=== PATIENT | male | born 1940 | race Caucasian/White ===

== ENCOUNTER 2018-11-09 18:36 | Inpatient (IN) | payer MEDICARE ==
[~2018-11-09] VITALS: Ht 165.1 cm; Wt 93.0 kg
[2018-11-09] MEDS ORDERED: IV NORMAL SALINE 1000ML BAG 1,000 ML IV ONE ×2 (18:45→19:45)
[2018-11-09 18:58] LABS: BASO % 0 % (0-3); EOS # 0.1 x10^3/uL (0.0-0.7); EOS % 1 % (0-3); HEMATOCRIT 46.9 % (39.0-53.0); HEMOGLOBIN 15.5 g/dL (13.0-17.5); LYMPH # 0.4 x10^3/uL (1.0-4.8); LYMPH % 4 % (24-48); MEAN CORPUSCULAR HEMOGLOBIN 31 pg (25-35); MEAN CORPUSCULAR HGB CONC 33 g/dL (31-37); MEAN CORPUSCULAR VOLUME 93 fL (79-100); MONO # 0.2 x10^3/uL (0.0-1.1); MONO % 2 % (0-9); NEUT # 10.5 x10^3uL (1.8-7.7); NEUT % 94 % (31-73); PLATELET COUNT 220 x10^3/uL (140-400); RED BLOOD COUNT 5.06 x10^6/uL (4.30-5.70); RED CELL DISTRIBUTION WIDTH 13.5 % (11.5-14.5); WHITE BLOOD COUNT 11.2 x10^3/uL (4.0-11.0)
[2018-11-09] MEDS ORDERED: CONTRAST GIVEN. MC PRN (19:00)
[2018-11-09] MEDS ORDERED: IOHEXOL 350 MG/ML 100 ML VIAL. IV ONE (19:00)
--- NOTE | 2018-11-09 19:06 | PHYS DOC ---
Past Medical History Past Medical History: Arthritis, COPD, Depression, Hypertension, Seizure, Stroke, UTI Additional Past Medical Histor: hyperlipidemia, bph, Past Surgical History: No Surgical History Alcohol Use: None Drug Use: None Adult General Chief Complaint Chief Complaint: ALTERED MENTAL STATUS [facility] HPI Patient is a 77 [facility] male [facility] patient with history of CVA with persistent left-sided deficits, seizure disorder who presents with mental status changes and fever [facility]. Patient also reported to be hypotensive per EMS on their arrival. Systolic blood pressures in the 90s. [Blood pressure symptoms improved to low 110s. Patient is somewhat somnolent and oriented to person but confused to time and place. No reports of chest pain, cough, abdominal pain. No reports of urinary frequency urgency or burning. History is limited due to the patient's mental status changes. Additional history per patient's spouse.[] Review of Systems Review of Systems ROS as per HPI All other systems were reviewed and found to be within normal limits, except as documented in this note. Current Medications Current Medications Current Medications Medications (Trade) Dose Ordered Sig/Darius Start Time Stop Time Status Last Admin Dose Admin Sodium Chloride 1,000 ml @ 1,000 mls/hr 1X ONCE 11/09/18 18:45 11/09/18 19:44 DC 11/09/18 19:09 1,000 MLS/HR Allergies Allergies Allergies Coded Allergies Type Severity Reaction Last Updated Verified No Known Drug Allergies 02/21/18 No Physical Exam Physical Exam Constitutional: Fatigued, generally weak appearing slow to respond to questions. [] HENT: Normocephalic, atraumatic, bilateral external ears normal, oropharynx moist, nose normal. [] Eyes: PERRLA, EOMI, conjunctiva normal, no discharge. [] Neck: Normal range of motion, no tenderness. [] Cardiovascular:Heart rate regular rhythm, no murmur [] Lungs & Thorax: Bilateral breath sounds clear to auscultation [] Abdomen: Bowel sounds normal, soft, nontender. [] Skin: Warm, dry, no erythema. [] Back: No tenderness. [] Extremities: No tenderness, no edema. [] Neurologic: Alert and oriented X 1, l upper and left lower extremity weakness with decreased sensation[] Current Patient Data Vital Signs Vital Signs Date Time Temp Pulse Resp B/P (MAP) Pulse Ox O2 Delivery O2 Flow Rate FiO2 11/09/18 18:36 101.8 110 20 113/64 (80) 91 Room Air 101.8 Lab Values Laboratory Tests Test 11/09/18 18:42 11/09/18 18:45 Glucose (Fingerstick) 318 mg/dL (70-99) H White Blood Count 11.2 x10^3/uL (4.0-11.0) H Red Blood Count 5.06 x10^6/uL (4.30-5.70) Hemoglobin 15.5 g/dL (13.0-17.5) Hematocrit 46.9 % (39.0-53.0) Mean Corpuscular Volume 93 fL (79-100) Mean Corpuscular Hemoglobin 31 pg (25-35) Mean Corpuscular Hemoglobin Concent 33 g/dL (31-37) Red Cell Distribution Width 13.5 % (11.5-14.5) Platelet Count 220 x10^3/uL (140-400) Neutrophils (%) (Auto) 94 % (31-73) H Lymphocytes (%) (Auto) 4 % (24-48) L Monocytes (%) (Auto) 2 % (0-9) Eosinophils (%) (Auto) 1 % (0-3) Basophils (%) (Auto) 0 % (0-3) Neutrophils # (Auto) 10.5 x10^3uL (1.8-7.7) H Lymphocytes # (Auto) 0.4 x10^3/uL (1.0-4.8) L Monocytes # (Auto) 0.2 x10^3/uL (0.0-1.1) Eosinophils # (Auto) 0.1 x10^3/uL (0.0-0.7) Basophils # (Auto) 0.0 x10^3/uL (0.0-0.2) Segmented Neutrophils % 58 % (35-66) Band Neutrophils % 36 % (0-9) H Lymphocytes % 5 % (24-48) L Eosinophils % 1 % (0-5) Platelet Estimate Adequate (ADEQUATE) Large Platelets Few Giant Platelets Occ Sodium Level 139 mmol/L (136-145) Potassium Level 4.0 mmol/L (3.5-5.1) Chloride Level 101 mmol/L (98-107) Carbon Dioxide Level 25 mmol/L (21-32) Anion Gap 13 (6-14) Blood Urea Nitrogen 14 mg/dL (8-26) Creatinine 0.9 mg/dL (0.7-1.3) Estimated GFR (Cockcroft-Gault) 82.0 BUN/Creatinine Ratio 16 (6-20) Glucose Level 321 mg/dL (70-99) H Lactic Acid Level 2.5 mmol/L (0.4-2.0) H Calcium Level 9.3 mg/dL (8.5-10.1) Total Bilirubin 1.3 mg/dL (0.2-1.0) H Aspartate Amino Transferase (AST) 39 U/L (15-37) H Alanine Aminotransferase (ALT) 43 U/L (16-63) Alkaline Phosphatase 114 U/L (46-116) Troponin I Quantitative < 0.017 ng/mL (0.000-0.055) MA-Pvt-Z-Type Natriuretic Peptide 57 pg/mL (0-449) Total Protein 7.4 g/dL (6.4-8.2) Albumin 3.4 g/dL (3.4-5.0) Albumin/Globulin Ratio 0.9 (1.0-1.7) L Laboratory Tests 11/09/18 18:45 Laboratory Tests 11/09/18 18:45 EKG EKG [] Radiology/Procedures Radiology/Procedures [] Course & Med Decision Making Course & Med Decision Making Pertinent Labs and Imaging studies reviewed. (See chart for details) [Patient with UTI, metabolic encephalopathy and sepsis. IV fluids, antibiotics given.] Dragon Disclaimer Dragon Disclaimer This electronic medical record was generated, in whole or in part, using a voice recognition dictation system. Departure Departure Impression: Primary Impression: Sepsis Additional Impressions: UTI (urinary tract infection) Acute metabolic encephalopathy CVA, old, hemiparesis Hyperglycemia Disposition: ADMITTED INPATIENT Admitting Physician: Rubio Henao Condition: STABLE Referrals: Randy HENAO MD (PCP) Problem Qualifiers ZEE DUNN DO November 09, 2018 19:05
[2018-11-09 19:10] LABS: CALCIUM 9.3 mg/dL (8.5-10.1); CREATININE 0.9 mg/dL (0.7-1.3)
[2018-11-09] MEDS ORDERED: ACETAMINOPHEN 500 MG TABLET PO ONE (19:15)
[2018-11-09 19:18] LABS: ALBUMIN 3.4 g/dL (3.4-5.0); ALBUMIN/GLOBULIN RATIO 0.9 (1.0-1.7); TOTAL BILIRUBIN 1.3 mg/dL (0.2-1.0); TOTAL PROTEIN 7.4 g/dL (6.4-8.2)
[2018-11-09 19:38] LABS: % BANDS 36 % (0-9); % EOS 1 % (0-5); % LYMPHS 5 % (24-48); % SEGS 58 % (35-66)
[2018-11-09 19:39] LABS: PLT ESTIMATE ADEQUATE (ADEQUATE)
[2018-11-09 20:02] LABS: BILIRUBIN,URINE NEGATIVE (NEG); CLARITY,URINE CLEAR; COLOR,URINE YELLOW; NITRITE,URINE POSITIVE (NEG); PROTEIN,URINE NEGATIVE (NEG-TRACE)
[2018-11-09 20:21] LABS: BACTERIA,URINE MANY /HPF (0-FEW)
[2018-11-09 20:22] LABS: RBC,URINE OCC /HPF (0-2); WBC,URINE >40 /HPF (0-4)
[2018-11-09] MEDS ORDERED: cefTRIAXone IV Push 1 GM VIAL. IVP ONE (20:30)
--- NOTE | 2018-11-09 20:32 | RAD ---
CT scan of the head without contrast 11/11/2018 Clinical History: Altered mental status Technique: Unenhanced, contiguous, 5 mm axial sections were obtained through the head. One or more of the following individualized dose reduction techniques were utilized for this study: 1. Automated exposure control. 2. Adjustment of the mA and/or kV according to patient size. 3. Use of iterative reconstruction technique. Findings: No previous studies are available for comparison. There is generalized parenchymal atrophy. Areas of decreased attenuation are seen within the periventricular and subcortical white matter of both cerebral hemispheres consistent with areas of small vessel ischemic disease. No acute parenchymal abnormality is seen. No extra-axial fluid collection is noted. No skull fracture is seen. Impression: No acute intracranial abnormality is seen. Electronically signed by: Darryl Cosby MD (11/09/2018 8:29 PM) [facility]
[2018-11-09] MEDS ORDERED: ONDANSETRON PF 4 MG/2 ML VIAL. IV PRN (20:45)
[2018-11-09] MEDS ORDERED: ACETAMINOPHEN 325 MG TABLET. PO PRN (20:45)
[2018-11-09] MEDS: IV NORMAL SALINE 1000ML BAG 1,000 ML IV SCH (22:05)
--- NOTE | 2018-11-09 22:55 | RAD ---
AP portable chest radiograph 11/09/2018 Clinical History: Shortness of breath. An AP erect portable digital radiograph of the chest was obtained. No previous studies are available for comparison. The cardiac silhouette is mildly enlarged. Atherosclerotic calcification of the thoracic aorta is seen. The thoracic aorta is mildly tortuous. Prominence of the pulmonary vasculature is seen consistent with mild CHF. No pneumothorax or pleural effusion is seen. Degenerative changes are seen involving the thoracic spine and both shoulders. IMPRESSION: Findings consistent with mild CHF. Electronically signed by: Darryl Cosby MD (11/09/2018 10:52 PM) [facility]
[2018-11-09 23:14] VITALS: BP 109/66
[2018-11-10] VITALS (7 sets, daily range): BP systolic 117–143; BP diastolic 62–86
[2018-11-10] MEDS ORDERED: MULT1TAB52 PO (00:06)
[2018-11-10] MEDS ORDERED: POLY17PO29 PO (00:06)
[2018-11-10] MEDS ORDERED: AMLO5TAB4 PO (00:06)
[2018-11-10] MEDS ORDERED: GABA300C18 PO (00:06)
[2018-11-10] MEDS ORDERED: ASPI-630 PO (00:06)
[2018-11-10] MEDS ORDERED: LEVE500T6 PO (00:06)
[2018-11-10] MEDS ORDERED: NYST15CR TP (00:06)
[2018-11-10] MEDS ORDERED: GUAI237L83 PO (00:06)
[2018-11-10] MEDS ORDERED: DICL100G18 TP (00:06)
[2018-11-10] MEDS ORDERED: ATOR20TA58 PO (00:06)
[2018-11-10] MEDS ORDERED: TAMS0.4C97 PO (00:06)
[2018-11-10] MEDS ORDERED: LORA10TA68 PO (00:06)
[2018-11-10] MEDS ORDERED: ACET325T9 PO (00:06)
[2018-11-10] MEDS ORDERED: CITA10TA4 PO (00:06)
[2018-11-10] MEDS ORDERED: FINA5TAB PO (00:06)
[2018-11-10] MEDS: IV NORMAL SALINE 1000ML BAG 1,000 ML IV SCH ×2 (04:41→12:41)
[2018-11-10 04:57] LABS: BASO % 0 % (0-3); EOS # 0.1 x10^3/uL (0.0-0.7); EOS % 1 % (0-3); HEMATOCRIT 40.6 % (39.0-53.0); HEMOGLOBIN 13.6 g/dL (13.0-17.5); LYMPH % 10 % (24-48); MEAN CORPUSCULAR HEMOGLOBIN 31 pg (25-35); MEAN CORPUSCULAR HGB CONC 33 g/dL (31-37); MEAN CORPUSCULAR VOLUME 92 fL (79-100); MONO # 0.3 x10^3/uL (0.0-1.1); MONO % 3 % (0-9); NEUT # 8.9 x10^3uL (1.8-7.7); NEUT % 86 % (31-73); PLATELET COUNT 189 x10^3/uL (140-400); RED CELL DISTRIBUTION WIDTH 13.4 % (11.5-14.5); WHITE BLOOD COUNT 10.3 x10^3/uL (4.0-11.0)
[2018-11-10 05:23] LABS: CALCIUM 8.3 mg/dL (8.5-10.1); CREATININE 0.5 mg/dL (0.7-1.3); GFR 161.7; POTASSIUM 3.6 mmol/L (3.5-5.1)
--- NOTE | 2018-11-10 07:34 | EKG ---
[facility] [address] [place] [address] Test Date: 2018-11-09 Test Time: 18:43:57 Pat Name: MISBAH [place] Department: Room: 200 1 Gender: M Extract Operator: : 1940 Requested By: ZEE DUNN Order Number: [id number] Reading MD: Mykel Anthony Measurements Intervals Aubrey Rate: 108 P: -149 MN: 168 QRS: -11 QRSD: 82 T: 31 QT: 380 QTc: 513 Interpretive Statements SINUS TACHYCARDIA PROLONGED MN INTERVAL LEFTWARD AXIS NON SPECIFIC ST DEPRESSION Electronically Signed On 12-01-2018 12:24:33 CDT by Mykel Anthony
[2018-11-10] MEDS ORDERED: DEXTROSE 50% 25 GM / 50ML DISP.SYRIN. IV PRN (08:30)
--- NOTE | 2018-11-10 08:35 | PDOC1 ---
History and Physical Date of Admission Date of Admission 11/09/18 Identification/Chief Complaint Chief Complaint fever, mental status change Source Source: Caregiver, Chart review, Patient History of Present Illness History of Present Illness correction care patient at [facility] after a stroke developed a fever and confusions and sent to ER last lakhwinder and found to be uroseptic with encephalopathy, Given fluids and IV Rocephin and admitted but overnight he had a 5 sec pause and cardiology consulted. It appears he also has new type 2 diabetes. He is awake and alert know and without complaints, his is present Past Medical History Cardiovascular: CHF, HTN, Hyperlipidemia Pulmonary: No pertinent hx CENTRAL NERVOUS SYSTEM: CVA, Seizure GI: No pertinent hx Heme/Onc: Cancer (bladder) Hepatobiliary: No pertinent hx Psych: Depression Rheumatologic: Other (osteoarthritis) Renal/: UTI, Benign prostatic enlarg., Bladder Ca. Dermatology: No pertinent hx Past Surgical History Past Surgical History: Other (bladder) Family History Family History: Coronary Artery Disease, Hypertension, Osteo Arthiritis Social History Smoke: No ALCOHOL: none Drugs: None Current Problem List Problem List Problems Medical Problems: (1) Acute metabolic encephalopathy Status: Acute (2) CVA, old, hemiparesis Status: Acute (3) Hyperglycemia Status: Acute (4) Sepsis Status: Acute (5) UTI (urinary tract infection) Status: Acute Current Medications Current Medications Current Medications Medications (Trade) Dose Ordered Sig/Darius Start Time Stop Time Status Last Admin Dose Admin Acetaminophen (Tylenol) 650 mg PRN Q4HRS PRN 11/09/18 20:45 11/10/18 20:44 Ceftriaxone Sodium (Rocephin) 1 gm Q24H 11/10/18 08:30 UNV Dextrose (Dextrose 50%-Water Syringe) 12.5 gm PRN Q15MIN PRN 11/10/18 08:30 UNV Info (CONTRAST GIVEN -- Rx MONITORING) 1 each PRN DAILY PRN 11/09/18 19:00 11/11/18 18:59 Insulin Human Lispro (HumaLOG) 0-7 UNITS TIDWMEALS 11/10/18 12:00 UNV Iohexol (Omnipaque 350 Mg/ml) 75 ml 1X ONCE 11/09/18 19:00 11/09/18 19:01 DC Ondansetron HCl (Zofran) 4 mg PRN Q8HRS PRN 11/09/18 20:45 11/10/18 20:44 Sodium Chloride 1,000 ml @ 125 mls/hr Q8H 11/09/18 20:41 11/10/18 20:40 11/09/18 22:05 125 MLS/HR Allergies Allergies Allergies Coded Allergies Type Severity Reaction Last Updated Verified No Known Drug Allergies 02/21/18 No ROS Review of System CONSTITUTIONAL: recent fever & chills EYES: No recent changes SKIN: No rash or itching CARDIOVASCULAR: No chest pain, syncope, palpitations, or edema RESPIRATORY: No SOB or cough GASTROINTESTINAL: No nausea, vomiting or abdominal pain NEUROLOGICAL: left sided weakness post CVA ENDOCRINE: No cold or heat intolerance GENITOURINARY: recent frequency of urination MUSCULOSKELETAL: No back pain or joint pain LYMPHATICS: No enlarged lymph nodes PSYCHIATRIC: treated depression Physical Exam Physical Exam GEN.: No apparent distress. Alert and oriented. HEENT: Head is normocephalic, atraumatic NECK: Supple. LUNGS: Clear to auscultation. HEART: RRR, S1, S2 present. Peripheral pulses intact ABDOMEN: Soft, nontender. Positive bowel sounds. EXTREMITIES: Without any cyanosis. NEUROLOGIC: sluggish speech and tone PSYCHIATRIC: Normal affect, normal mood. SKIN: No ulcerations Vitals Vitals Vital Signs Date Time Temp Pulse Resp B/P (MAP) Pulse Ox O2 Delivery O2 Flow Rate FiO2 11/10/18 04:37 97.5 84 18 117/75 (89) 91 Room Air 97.5 Labs Labs Laboratory Tests Test 11/09/18 18:42 11/09/18 18:45 11/09/18 19:40 11/09/18 22:45 Glucose (Fingerstick) 318 mg/dL (70-99) White Blood Count 11.2 x10^3/uL (4.0-11.0) Red Blood Count 5.06 x10^6/uL (4.30-5.70) Hemoglobin 15.5 g/dL (13.0-17.5) Hematocrit 46.9 % (39.0-53.0) Mean Corpuscular Volume 93 fL (79-100) Mean Corpuscular Hemoglobin 31 pg (25-35) Mean Corpuscular Hemoglobin Concent 33 g/dL (31-37) Red Cell Distribution Width 13.5 % (11.5-14.5) Platelet Count 220 x10^3/uL (140-400) Neutrophils (%) (Auto) 94 % (31-73) Lymphocytes (%) (Auto) 4 % (24-48) Monocytes (%) (Auto) 2 % (0-9) Eosinophils (%) (Auto) 1 % (0-3) Basophils (%) (Auto) 0 % (0-3) Neutrophils # (Auto) 10.5 x10^3uL (1.8-7.7) Lymphocytes # (Auto) 0.4 x10^3/uL (1.0-4.8) Monocytes # (Auto) 0.2 x10^3/uL (0.0-1.1) Eosinophils # (Auto) 0.1 x10^3/uL (0.0-0.7) Basophils # (Auto) 0.0 x10^3/uL (0.0-0.2) Segmented Neutrophils % 58 % (35-66) Band Neutrophils % 36 % (0-9) Lymphocytes % 5 % (24-48) Eosinophils % 1 % (0-5) Platelet Estimate Adequate (ADEQUATE) Large Platelets Few Giant Platelets Occ Sodium Level 139 mmol/L (136-145) Potassium Level 4.0 mmol/L (3.5-5.1) Chloride Level 101 mmol/L (98-107) Carbon Dioxide Level 25 mmol/L (21-32) Anion Gap 13 (6-14) Blood Urea Nitrogen 14 mg/dL (8-26) Creatinine 0.9 mg/dL (0.7-1.3) Estimated GFR (Cockcroft-Gault) 82.0 BUN/Creatinine Ratio 16 (6-20) Glucose Level 321 mg/dL (70-99) Lactic Acid Level 2.5 mmol/L (0.4-2.0) 1.4 mmol/L (0.4-2.0) Calcium Level 9.3 mg/dL (8.5-10.1) Total Bilirubin 1.3 mg/dL (0.2-1.0) Aspartate Amino Transf (AST/SGOT) 39 U/L (15-37) Alanine Aminotransferase (ALT/SGPT) 43 U/L (16-63) Alkaline Phosphatase 114 U/L (46-116) Troponin I Quantitative < 0.017 ng/mL (0.000-0.055) FO-Nfk-G-Type Natriuretic Peptide 57 pg/mL (0-449) Total Protein 7.4 g/dL (6.4-8.2) Albumin 3.4 g/dL (3.4-5.0) Albumin/Globulin Ratio 0.9 (1.0-1.7) Urine Collection Type Unknown Urine Color Yellow Urine Clarity Clear Urine pH 5.0 Urine Specific [place] >=1.030 Urine Protein Negative mg/dL (NEG-TRACE) Urine Glucose (UA) >=1000 mg/dL (NEG) Urine Ketones (Stick) Trace mg/dL (NEG) Urine Blood Moderate (NEG) Urine Nitrite Positive (NEG) Urine Bilirubin Negative (NEG) Urine Urobilinogen Dipstick 1.0 mg/dL (0.2 mg/dL) Urine Leukocyte Esterase Small (NEG) Urine RBC Occ /HPF (0-2) Urine WBC >40 /HPF (0-4) Urine Bacteria Many /HPF (0-FEW) Test 11/10/18 04:10 11/10/18 07:15 White Blood Count 10.3 x10^3/uL (4.0-11.0) Red Blood Count 4.40 x10^6/uL (4.30-5.70) Hemoglobin 13.6 g/dL (13.0-17.5) Hematocrit 40.6 % (39.0-53.0) Mean Corpuscular Volume 92 fL (79-100) Mean Corpuscular Hemoglobin 31 pg (25-35) Mean Corpuscular Hemoglobin Concent 33 g/dL (31-37) Red Cell Distribution Width 13.4 % (11.5-14.5) Platelet Count 189 x10^3/uL (140-400) Neutrophils (%) (Auto) 86 % (31-73) Lymphocytes (%) (Auto) 10 % (24-48) Monocytes (%) (Auto) 3 % (0-9) Eosinophils (%) (Auto) 1 % (0-3) Basophils (%) (Auto) 0 % (0-3) Neutrophils # (Auto) 8.9 x10^3uL (1.8-7.7) Lymphocytes # (Auto) 1.0 x10^3/uL (1.0-4.8) Monocytes # (Auto) 0.3 x10^3/uL (0.0-1.1) Eosinophils # (Auto) 0.1 x10^3/uL (0.0-0.7) Basophils # (Auto) 0.0 x10^3/uL (0.0-0.2) Sodium Level 142 mmol/L (136-145) Potassium Level 3.6 mmol/L (3.5-5.1) Chloride Level 107 mmol/L (98-107) Carbon Dioxide Level 24 mmol/L (21-32) Anion Gap 11 (6-14) Blood Urea Nitrogen 10 mg/dL (8-26) Creatinine 0.5 mg/dL (0.7-1.3) Estimated GFR (Cockcroft-Gault) 161.7 Glucose Level 250 mg/dL (70-99) Calcium Level 8.3 mg/dL (8.5-10.1) Glucose (Fingerstick) 213 mg/dL (70-99) Laboratory Tests Test 11/09/18 18:42 11/09/18 18:45 11/09/18 19:40 11/09/18 22:45 Glucose (Fingerstick) 318 mg/dL (70-99) White Blood Count 11.2 x10^3/uL (4.0-11.0) Red Blood Count 5.06 x10^6/uL (4.30-5.70) Hemoglobin 15.5 g/dL (13.0-17.5) Hematocrit 46.9 % (39.0-53.0) Mean Corpuscular Volume 93 fL (79-100) Mean Corpuscular Hemoglobin 31 pg (25-35) Mean Corpuscular Hemoglobin Concent 33 g/dL (31-37) Red Cell Distribution Width 13.5 % (11.5-14.5) Platelet Count 220 x10^3/uL (140-400) Neutrophils (%) (Auto) 94 % (31-73) Lymphocytes (%) (Auto) 4 % (24-48) Monocytes (%) (Auto) 2 % (0-9) Eosinophils (%) (Auto) 1 % (0-3) Basophils (%) (Auto) 0 % (0-3) Neutrophils # (Auto) 10.5 x10^3uL (1.8-7.7) Lymphocytes # (Auto) 0.4 x10^3/uL (1.0-4.8) Monocytes # (Auto) 0.2 x10^3/uL (0.0-1.1) Eosinophils # (Auto) 0.1 x10^3/uL (0.0-0.7) Basophils # (Auto) 0.0 x10^3/uL (0.0-0.2) Segmented Neutrophils % 58 % (35-66) Band Neutrophils % 36 % (0-9) Lymphocytes % 5 % (24-48) Eosinophils % 1 % (0-5) Platelet Estimate Adequate (ADEQUATE) Large Platelets Few Giant Platelets Occ Sodium Level 139 mmol/L (136-145) Potassium Level 4.0 mmol/L (3.5-5.1) Chloride Level 101 mmol/L (98-107) Carbon Dioxide Level 25 mmol/L (21-32) Anion Gap 13 (6-14) Blood Urea Nitrogen 14 mg/dL (8-26) Creatinine 0.9 mg/dL (0.7-1.3) Estimated GFR (Cockcroft-Gault) 82.0 BUN/Creatinine Ratio 16 (6-20) Glucose Level 321 mg/dL (70-99) Lactic Acid Level 2.5 mmol/L (0.4-2.0) 1.4 mmol/L (0.4-2.0) Calcium Level 9.3 mg/dL (8.5-10.1) Total Bilirubin 1.3 mg/dL (0.2-1.0) Aspartate Amino Transf (AST/SGOT) 39 U/L (15-37) Alanine Aminotransferase (ALT/SGPT) 43 U/L (16-63) Alkaline Phosphatase 114 U/L (46-116) Troponin I Quantitative < 0.017 ng/mL (0.000-0.055) GC-Czy-J-Type Natriuretic Peptide 57 pg/mL (0-449) Total Protein 7.4 g/dL (6.4-8.2) Albumin 3.4 g/dL (3.4-5.0) Albumin/Globulin Ratio 0.9 (1.0-1.7) Urine Collection Type Unknown Urine Color Yellow Urine Clarity Clear Urine pH 5.0 Urine Specific [place] >=1.030 Urine Protein Negative mg/dL (NEG-TRACE) Urine Glucose (UA) >=1000 mg/dL (NEG) Urine Ketones (Stick) Trace mg/dL (NEG) Urine Blood Moderate (NEG) Urine Nitrite Positive (NEG) Urine Bilirubin Negative (NEG) Urine Urobilinogen Dipstick 1.0 mg/dL (0.2 mg/dL) Urine Leukocyte Esterase Small (NEG) Urine RBC Occ /HPF (0-2) Urine WBC >40 /HPF (0-4) Urine Bacteria Many /HPF (0-FEW) Test 11/10/18 04:10 11/10/18 07:15 White Blood Count 10.3 x10^3/uL (4.0-11.0) Red Blood Count 4.40 x10^6/uL (4.30-5.70) Hemoglobin 13.6 g/dL (13.0-17.5) Hematocrit 40.6 % (39.0-53.0) Mean Corpuscular Volume 92 fL (79-100) Mean Corpuscular Hemoglobin 31 pg (25-35) Mean Corpuscular Hemoglobin Concent 33 g/dL (31-37) Red Cell Distribution Width 13.4 % (11.5-14.5) Platelet Count 189 x10^3/uL (140-400) Neutrophils (%) (Auto) 86 % (31-73) Lymphocytes (%) (Auto) 10 % (24-48) Monocytes (%) (Auto) 3 % (0-9) Eosinophils (%) (Auto) 1 % (0-3) Basophils (%) (Auto) 0 % (0-3) Neutrophils # (Auto) 8.9 x10^3uL (1.8-7.7) Lymphocytes # (Auto) 1.0 x10^3/uL (1.0-4.8) Monocytes # (Auto) 0.3 x10^3/uL (0.0-1.1) Eosinophils # (Auto) 0.1 x10^3/uL (0.0-0.7) Basophils # (Auto) 0.0 x10^3/uL (0.0-0.2) Sodium Level 142 mmol/L (136-145) Potassium Level 3.6 mmol/L (3.5-5.1) Chloride Level 107 mmol/L (98-107) Carbon Dioxide Level 24 mmol/L (21-32) Anion Gap 11 (6-14) Blood Urea Nitrogen 10 mg/dL (8-26) Creatinine 0.5 mg/dL (0.7-1.3) Estimated GFR (Cockcroft-Gault) 161.7 Glucose Level 250 mg/dL (70-99) Calcium Level 8.3 mg/dL (8.5-10.1) Glucose (Fingerstick) 213 mg/dL (70-99) Images Images PROCEDURE: CHEST AP ONLY AP portable chest radiograph 11/09/2018 Clinical History: Shortness of breath. An AP erect portable digital radiograph of the chest was obtained. No previous studies are available for comparison. The cardiac silhouette is mildly enlarged. Atherosclerotic calcification of the thoracic aorta is seen. The thoracic aorta is mildly tortuous. Prominence of the pulmonary vasculature is seen consistent with mild CHF. No pneumothorax or pleural effusion is seen. Degenerative changes are seen involving the thoracic spine and both shoulders. IMPRESSION: Findings consistent with mild CHF. CT scan of the head without contrast 11/11/2018 Clinical History: Altered mental status Technique: Unenhanced, contiguous, 5 mm axial sections were obtained through the head. One or more of the following individualized dose reduction techniques were utilized for this study: 1. Automated exposure control. 2. Adjustment of the mA and/or kV according to patient size. 3. Use of iterative reconstruction technique. Findings: No previous studies are available for comparison. There is generalized parenchymal atrophy. Areas of decreased attenuation are seen within the periventricular and subcortical white matter of both cerebral hemispheres consistent with areas of small vessel ischemic disease. No acute parenchymal abnormality is seen. No extra-axial fluid collection is noted. No skull fracture is seen. Impression: No acute intracranial abnormality is seen. VTE Prophylaxis Ordered VTE Prophylaxis Devices: Yes VTE Pharmacological Prophylaxi: Yes Assessment/Plan Assessment/Plan sepsis - likely gram negative - Rocephin, ID consult, hold on Levaquin due to arrhythmia toxic encephalopathy - improved overnight, now alert arrhythmia - 5 sec pause, likely needs PPM but on hold due to sepsis new onset DM, 2 - check A1C, start SSI recent CVA - on ASA hx seizure - continue meds Randy HENAO MD November 10, 2018 08:35
[2018-11-10] MEDS ORDERED: CITALOPRAM 10 MG TABLET. PO SCH (09:00)
[2018-11-10] MEDS ORDERED: NYSTATIN 100,000 UNIT/GM TOPICAL CREAM 15GM TUBE. TP PRN (09:00)
--- NOTE | 2018-11-10 09:12 | PDOC2 ---
KINGSTON SAVAGE EXTRUSION PRESS OPERATOR 11/10/18 0912: CARDIAC CONSULT DATE OF CONSULT Date of Consult DATE: 11/10/18 TIME: 08:40 REASON FOR CONSULT Reason for Consult: Heart pause REFERRING PHYSICIAN Referring Physician: SOURCE Source: Chart review, Patient HISTORY OF PRESENT ILLNESS HISTORY OF PRESENT ILLNESS This is a pleasant 77 yo male admitted for complains of weakness and fever. He has been in the [facility] [place] home since 12/2017 as he had a stroke prior to that and his spouse has not been able to take care of him. Reports no palpitations, chest pain, SOA, frequent dizziness or passing out but spouse was very upset with [facility] when at some point he was noted with bradycardia and no follow up tests were performed. Presently pt has UTI with possible sepsis. No recent falls. No symptoms in regards to asystolei episodes at 6S likely due to pt being asleep per staff. BP was stable. PAST MEDICAL HISTORY Cardiovascular: HTN, Other (bradycardia noted in [facility] 11/2017 per spouse but no follow up test was done) Pulmonary: No pertinent hx CENTRAL NERVOUS SYSTEM: CVA, Seizure GI: Constipation Heme/Onc: No pertinent hx Hepatobiliary: No pertinent hx Psych: Anxiety Musculoskeletal: Osteoarthritis, Other (left side hemipardsis) Rheumatologic: No pertinent hx Infectious disease: No pertinent hx ENT: No pertinent hx Renal/: No pertinent hx Endocrine: Diabetes (2) Dermatology: No pertinent hx PAST SURGICAL HISTORY Past Surgical History: Cataract Removal, Hernia Repair (bilateral) FAMILY HISTORY Family History noncontributory to CV SOCIAL HISTORY Smoke: No ALCOHOL: none Drugs: None Lives: Skilled Nursing CURRENT MEDICATIONS CURRENT MEDICATIONS Current Medications Medications (Trade) Dose Ordered Sig/Darius Route PRN Reason Start Time Stop Time Status Last Admin Dose Admin Sodium Chloride 1,000 ml @ 1,000 mls/hr 1X ONCE IV 11/09/18 18:45 11/09/18 19:44 DC 11/09/18 19:09 Acetaminophen (Tylenol) 1,000 mg 1X ONCE PO 11/09/18 19:15 11/09/18 19:16 DC 11/09/18 19:14 Sodium Chloride 1,000 ml @ 1,000 mls/hr 1X ONCE IV 11/09/18 19:45 11/09/18 20:44 DC 11/09/18 19:50 Ceftriaxone Sodium (Rocephin) 1 gm 1X ONCE IVP 11/09/18 20:30 11/09/18 20:36 DC 11/09/18 20:37 Sodium Chloride 1,000 ml @ 125 mls/hr Q8H IV 11/09/18 20:41 11/10/18 20:40 11/09/18 22:05 ALLERGIES ALLERGIES: Coded Allergies: No Known Drug Allergies (Unverified , 02/21/18) ROS Review of System 14 point ROS evaluated with pertinent positives noted per HPI PHYSICAL EXAM General: Alert, Oriented X3, Cooperative, No acute distress HEENT: Atraumatic, Mucous membr. moist/pink Lungs: Other (basilar crackles) Heart: Regular rate (SR), Normal S1, Normal S2, Other (3/6 systolic murmur to apex) Abdomen: Soft, Other (obese) Extremities: No cyanosis, Other (1-2+ bilateral LE pitting edema) Neuro: Normal speech, Sensation intact Psych/Mental Status: Mental status NL, Mood NL MUSCULOSKELETAL: Osteoarthritic changes both hands, Other (left side hemiparesis) VITALS VITALS Vital Signs Date Time Temp Pulse Resp B/P (MAP) Pulse Ox O2 Delivery O2 Flow Rate FiO2 11/10/18 07:00 97.7 91 20 143/86 (105) 92 Room Air 97.7 LABS Lab: Laboratory Tests Test 11/09/18 18:42 11/09/18 18:45 11/09/18 19:40 11/09/18 22:45 Glucose (Fingerstick) 318 mg/dL (70-99) White Blood Count 11.2 x10^3/uL (4.0-11.0) Red Blood Count 5.06 x10^6/uL (4.30-5.70) Hemoglobin 15.5 g/dL (13.0-17.5) Hematocrit 46.9 % (39.0-53.0) Mean Corpuscular Volume 93 fL (79-100) Mean Corpuscular Hemoglobin 31 pg (25-35) Mean Corpuscular Hemoglobin Concent 33 g/dL (31-37) Red Cell Distribution Width 13.5 % (11.5-14.5) Platelet Count 220 x10^3/uL (140-400) Neutrophils (%) (Auto) 94 % (31-73) Lymphocytes (%) (Auto) 4 % (24-48) Monocytes (%) (Auto) 2 % (0-9) Eosinophils (%) (Auto) 1 % (0-3) Basophils (%) (Auto) 0 % (0-3) Neutrophils # (Auto) 10.5 x10^3uL (1.8-7.7) Lymphocytes # (Auto) 0.4 x10^3/uL (1.0-4.8) Monocytes # (Auto) 0.2 x10^3/uL (0.0-1.1) Eosinophils # (Auto) 0.1 x10^3/uL (0.0-0.7) Basophils # (Auto) 0.0 x10^3/uL (0.0-0.2) Segmented Neutrophils % 58 % (35-66) Band Neutrophils % 36 % (0-9) Lymphocytes % 5 % (24-48) Eosinophils % 1 % (0-5) Platelet Estimate Adequate (ADEQUATE) Large Platelets Few Giant Platelets Occ Sodium Level 139 mmol/L (136-145) Potassium Level 4.0 mmol/L (3.5-5.1) Chloride Level 101 mmol/L (98-107) Carbon Dioxide Level 25 mmol/L (21-32) Anion Gap 13 (6-14) Blood Urea Nitrogen 14 mg/dL (8-26) Creatinine 0.9 mg/dL (0.7-1.3) Estimated GFR (Cockcroft-Gault) 82.0 BUN/Creatinine Ratio 16 (6-20) Glucose Level 321 mg/dL (70-99) Lactic Acid Level 2.5 mmol/L (0.4-2.0) 1.4 mmol/L (0.4-2.0) Calcium Level 9.3 mg/dL (8.5-10.1) Total Bilirubin 1.3 mg/dL (0.2-1.0) Aspartate Amino Transf (AST/SGOT) 39 U/L (15-37) Alanine Aminotransferase (ALT/SGPT) 43 U/L (16-63) Alkaline Phosphatase 114 U/L (46-116) Troponin I Quantitative < 0.017 ng/mL (0.000-0.055) CI-Yla-C-Type Natriuretic Peptide 57 pg/mL (0-449) Total Protein 7.4 g/dL (6.4-8.2) Albumin 3.4 g/dL (3.4-5.0) Albumin/Globulin Ratio 0.9 (1.0-1.7) Urine Collection Type Unknown Urine Color Yellow Urine Clarity Clear Urine pH 5.0 Urine Specific [place] >=1.030 Urine Protein Negative mg/dL (NEG-TRACE) Urine Glucose (UA) >=1000 mg/dL (NEG) Urine Ketones (Stick) Trace mg/dL (NEG) Urine Blood Moderate (NEG) Urine Nitrite Positive (NEG) Urine Bilirubin Negative (NEG) Urine Urobilinogen Dipstick 1.0 mg/dL (0.2 mg/dL) Urine Leukocyte Esterase Small (NEG) Urine RBC Occ /HPF (0-2) Urine WBC >40 /HPF (0-4) Urine Bacteria Many /HPF (0-FEW) Test 11/10/18 04:10 11/10/18 07:15 White Blood Count 10.3 x10^3/uL (4.0-11.0) Red Blood Count 4.40 x10^6/uL (4.30-5.70) Hemoglobin 13.6 g/dL (13.0-17.5) Hematocrit 40.6 % (39.0-53.0) Mean Corpuscular Volume 92 fL (79-100) Mean Corpuscular Hemoglobin 31 pg (25-35) Mean Corpuscular Hemoglobin Concent 33 g/dL (31-37) Red Cell Distribution Width 13.4 % (11.5-14.5) Platelet Count 189 x10^3/uL (140-400) Neutrophils (%) (Auto) 86 % (31-73) Lymphocytes (%) (Auto) 10 % (24-48) Monocytes (%) (Auto) 3 % (0-9) Eosinophils (%) (Auto) 1 % (0-3) Basophils (%) (Auto) 0 % (0-3) Neutrophils # (Auto) 8.9 x10^3uL (1.8-7.7) Lymphocytes # (Auto) 1.0 x10^3/uL (1.0-4.8) Monocytes # (Auto) 0.3 x10^3/uL (0.0-1.1) Eosinophils # (Auto) 0.1 x10^3/uL (0.0-0.7) Basophils # (Auto) 0.0 x10^3/uL (0.0-0.2) Sodium Level 142 mmol/L (136-145) Potassium Level 3.6 mmol/L (3.5-5.1) Chloride Level 107 mmol/L (98-107) Carbon Dioxide Level 24 mmol/L (21-32) Anion Gap 11 (6-14) Blood Urea Nitrogen 10 mg/dL (8-26) Creatinine 0.5 mg/dL (0.7-1.3) Estimated GFR (Cockcroft-Gault) 161.7 Glucose Level 250 mg/dL (70-99) Calcium Level 8.3 mg/dL (8.5-10.1) Magnesium Level 1.9 mg/dL (1.8-2.4) Glucose (Fingerstick) 213 mg/dL (70-99) ASSESSMENT/PLAN ASSESSMENT/PLAN 1. Asystole: suspect SSS 5 and 6 sec pauses, appears to have occurred while asleep. Currently in SR 90 and hemodynamically stable. 2. Prolonged QTc: 513 3. UTI with possible sepsis 4. Metabolic encephalopathy 5. Hx of bradycardia: per spouse 11/2017, unknown details but no presyncopal or syncopal spells and follow up test in relation to this 6. HTN: controlled 7. DM2/HLP 8. Past CVA with left side hemiparesis 9. Mild acute Diastolic CHF: appears compensated Recommendations 1. Hold celexa. avoid QT prolonging agents 2. Pacer pads on standby. Pt currently stable, lytes on goal. ID Consult, will need sufficient Abx with pending BC prior to PPM. Will monitor over the weekend 3. Continue with secondary prevention. Low dose x1 lasix. 4. TTE. 5. Discussed with RN, PVR. and note urinary retention and report to PCP. LATANYA GUTIERREZ MD 11/10/18 5329: CARDIAC CONSULT ASSESSMENT/PLAN ASSESSMENT/PLAN Patient seen and examined. Agree with CARPET FINISHING SUPERVISOR's assessment and plan. Telemetry with sinus pauses and intermittent Mobitz type II second-degree AV block noted Patient probably has sick sinus syndrome Mild acute on chronic diastolic heart failure better compensated 2-D echo showed normal LV systolic function Continue management of sepsis per ID team We will monitor telemetry over the weekend and consider permanent pacemaker implantation if he continues to have bradyarrhythmias Thank you for your consultation KINGSTON SAVAGE APRN November 10, 2018 09:12 LATANYA GUTIERREZ MD November 10, 2018 17:47
[2018-11-10] MEDS ORDERED: FUROSEMIDE 20 MG/2 ML VIAL. IVP ONE (09:30)
--- NOTE | 2018-11-10 09:53 | NUR ---
SW reviewed pt's medical chart and evaluated for potential dc needs. Pt is an LTC resident at [facility] and will return upon dc. SW will continue to follow and be available to arrange return.
[2018-11-10] MEDS: FINASTERIDE 5 MG TABLET. PO SCH (09:55)
[2018-11-10] MEDS: CETIRIZINE HCL 10 MG TABLET. PO SCH (09:55)
[2018-11-10] MEDS: ATORVASTATIN CALCIUM 20 MG TABLET PO SCH (09:55)
[2018-11-10] MEDS: ASPIRIN CHEWABLE 81 MG TABLET. PO SCH (09:56)
[2018-11-10] MEDS: MULTIVITAMIN with MINERAL TABLET. PO SCH (09:56)
[2018-11-10] MEDS: amLODIPine BESYLATE 5 MG TABLET PO SCH (09:56)
[2018-11-10] MEDS: TAMSULOSIN 0.4 MG CAP.ER.24H. PO SCH (09:56)
[2018-11-10] MEDS: levETIRAcetam 500 MG TABLET PO SCH ×2 (09:56→22:00)
[2018-11-10] MEDS: POLYETHYLENE GLYCOL 3350 17 GM PACKET. PO SCH (09:57)
[2018-11-10] MEDS: DICLOFENAC SODIUM 1% TOPICAL GEL 100GM TUBE. TP SCH ×4 (09:59→22:02)
[2018-11-10] MEDS: INSULIN LISPRO 300 UNITS/3 ML INSULN.PEN. SQ SCH ×3 (10:14→18:47)
--- NOTE | 2018-11-10 12:07 | PDOC ---
Infectious Disease Note Vital Sign Vital Signs Vital Signs Date Time Temp Pulse Resp B/P (MAP) Pulse Ox O2 Delivery O2 Flow Rate FiO2 11/10/18 11:25 98.1 97 20 140/80 (100) 93 Room Air 98.1 Labs Lab Laboratory Tests Test 11/09/18 18:42 11/09/18 18:45 11/09/18 19:40 11/09/18 22:45 Glucose (Fingerstick) 318 mg/dL (70-99) White Blood Count 11.2 x10^3/uL (4.0-11.0) Red Blood Count 5.06 x10^6/uL (4.30-5.70) Hemoglobin 15.5 g/dL (13.0-17.5) Hematocrit 46.9 % (39.0-53.0) Mean Corpuscular Volume 93 fL (79-100) Mean Corpuscular Hemoglobin 31 pg (25-35) Mean Corpuscular Hemoglobin Concent 33 g/dL (31-37) Red Cell Distribution Width 13.5 % (11.5-14.5) Platelet Count 220 x10^3/uL (140-400) Neutrophils (%) (Auto) 94 % (31-73) Lymphocytes (%) (Auto) 4 % (24-48) Monocytes (%) (Auto) 2 % (0-9) Eosinophils (%) (Auto) 1 % (0-3) Basophils (%) (Auto) 0 % (0-3) Neutrophils # (Auto) 10.5 x10^3uL (1.8-7.7) Lymphocytes # (Auto) 0.4 x10^3/uL (1.0-4.8) Monocytes # (Auto) 0.2 x10^3/uL (0.0-1.1) Eosinophils # (Auto) 0.1 x10^3/uL (0.0-0.7) Basophils # (Auto) 0.0 x10^3/uL (0.0-0.2) Segmented Neutrophils % 58 % (35-66) Band Neutrophils % 36 % (0-9) Lymphocytes % 5 % (24-48) Eosinophils % 1 % (0-5) Platelet Estimate Adequate (ADEQUATE) Large Platelets Few Giant Platelets Occ Sodium Level 139 mmol/L (136-145) Potassium Level 4.0 mmol/L (3.5-5.1) Chloride Level 101 mmol/L (98-107) Carbon Dioxide Level 25 mmol/L (21-32) Anion Gap 13 (6-14) Blood Urea Nitrogen 14 mg/dL (8-26) Creatinine 0.9 mg/dL (0.7-1.3) Estimated GFR (Cockcroft-Gault) 82.0 BUN/Creatinine Ratio 16 (6-20) Glucose Level 321 mg/dL (70-99) Lactic Acid Level 2.5 mmol/L (0.4-2.0) 1.4 mmol/L (0.4-2.0) Calcium Level 9.3 mg/dL (8.5-10.1) Total Bilirubin 1.3 mg/dL (0.2-1.0) Aspartate Amino Transf (AST/SGOT) 39 U/L (15-37) Alanine Aminotransferase (ALT/SGPT) 43 U/L (16-63) Alkaline Phosphatase 114 U/L (46-116) Troponin I Quantitative < 0.017 ng/mL (0.000-0.055) VQ-Hkr-G-Type Natriuretic Peptide 57 pg/mL (0-449) Total Protein 7.4 g/dL (6.4-8.2) Albumin 3.4 g/dL (3.4-5.0) Albumin/Globulin Ratio 0.9 (1.0-1.7) Urine Collection Type Unknown Urine Color Yellow Urine Clarity Clear Urine pH 5.0 Urine Specific [place] >=1.030 Urine Protein Negative mg/dL (NEG-TRACE) Urine Glucose (UA) >=1000 mg/dL (NEG) Urine Ketones (Stick) Trace mg/dL (NEG) Urine Blood Moderate (NEG) Urine Nitrite Positive (NEG) Urine Bilirubin Negative (NEG) Urine Urobilinogen Dipstick 1.0 mg/dL (0.2 mg/dL) Urine Leukocyte Esterase Small (NEG) Urine RBC Occ /HPF (0-2) Urine WBC >40 /HPF (0-4) Urine Bacteria Many /HPF (0-FEW) Test 11/10/18 04:10 11/10/18 07:15 11/10/18 11:18 White Blood Count 10.3 x10^3/uL (4.0-11.0) Red Blood Count 4.40 x10^6/uL (4.30-5.70) Hemoglobin 13.6 g/dL (13.0-17.5) Hematocrit 40.6 % (39.0-53.0) Mean Corpuscular Volume 92 fL (79-100) Mean Corpuscular Hemoglobin 31 pg (25-35) Mean Corpuscular Hemoglobin Concent 33 g/dL (31-37) Red Cell Distribution Width 13.4 % (11.5-14.5) Platelet Count 189 x10^3/uL (140-400) Neutrophils (%) (Auto) 86 % (31-73) Lymphocytes (%) (Auto) 10 % (24-48) Monocytes (%) (Auto) 3 % (0-9) Eosinophils (%) (Auto) 1 % (0-3) Basophils (%) (Auto) 0 % (0-3) Neutrophils # (Auto) 8.9 x10^3uL (1.8-7.7) Lymphocytes # (Auto) 1.0 x10^3/uL (1.0-4.8) Monocytes # (Auto) 0.3 x10^3/uL (0.0-1.1) Eosinophils # (Auto) 0.1 x10^3/uL (0.0-0.7) Basophils # (Auto) 0.0 x10^3/uL (0.0-0.2) Sodium Level 142 mmol/L (136-145) Potassium Level 3.6 mmol/L (3.5-5.1) Chloride Level 107 mmol/L (98-107) Carbon Dioxide Level 24 mmol/L (21-32) Anion Gap 11 (6-14) Blood Urea Nitrogen 10 mg/dL (8-26) Creatinine 0.5 mg/dL (0.7-1.3) Estimated GFR (Cockcroft-Gault) 161.7 Glucose Level 250 mg/dL (70-99) Calcium Level 8.3 mg/dL (8.5-10.1) Magnesium Level 1.9 mg/dL (1.8-2.4) Thyroid Stimulating Hormone (TSH) 1.550 uIU/mL (0.358-3.74) Glucose (Fingerstick) 213 mg/dL (70-99) 271 mg/dL (70-99) Objective Assessment Sepsis - POA 5/16 Leukocytosis UTI - POA Bradycardia - with Sinus pauses Plan Plan of Care Had been in PP and at risk for resistant infection will change to Zosyn to cover PSA and Enterococcus F/u labs and cults Will need pacemaker when Infection cleared D/w D/w Lidia EUBANKS Cardiology D/w nursing thank you # [phone] KELLY GERMAIN MD November 10, 2018 12:07
[2018-11-10] MEDS: PIPERACILLIN/TAZOBACTAM 3.375 GM in IV NORMAL SALINE 50ML 50 ML IV SCH ×2 (13:27→18:31)
--- NOTE | 2018-11-10 17:36 | CARD ---
MR#: [id number] Date of Study: 11/10/2018 Ordering Physician: KINGSTON SAVAGE, Referring Physician: Carolina BERGMAN: Noy Gutierrez APPROVED REPORT EXAM: Two-dimensional and M-mode echocardiogram with Doppler and color Doppler. Other Information Quality : FairHR: 97bpm INDICATION Arrhythmia Bradycardia RISK FACTORS Hypertension Hyperlipidemia 2D DIMENSIONS RVDd2.8 (2.9-3.5cm)Left Atrium(2D)4.6 (1.6-4.0cm) IVSd1.7 (0.7-1.1cm)Aortic Root(2D)3.6 (2.0-3.7cm) LVDd4.4 (3.9-5.9cm)LVOT Diameter2.1 (1.8-2.4cm) PWd1.2 (0.7-1.1cm)LVDs2.9 (2.5-4.0cm) FS (%) 34.6 %SV54.9 ml LVEF(%)63.9 (>50%) Aortic Valve AoV Peak Reji.184.5cm/sAoV VTI42.1cm AO Peak GR.13.6mmHgLVOT VTI 13.76cm AO Mean GR.16mmHg Mitral Valve MV E Kouznvzw911.9cm/sMV DECEL FDBR197mz MV A Hnleyfbl710.2cm/sE/A Ratio0.7 TDI Lateral E' P. V6.41cm/sMedial E' P. V6.81cm/s E/Lateral E'16.5E/Medial E'15.6 Tricuspid Valve TR P. Euoylerd695kv/sTR Peak Gr.17mmHg Pulmonary Vein S1 Vopcyiqd84.9cm/sS2 Ktzjnefm24.75cm/s D2 Nugsqvlh82.7cm/s LEFT VENTRICLE The left ventricle is normal size. There is moderate concentric left ventricular hypertrophy. The lef t ventricular systolic function is normal. The Ejection Fraction is 55-60%. There is normal LV segmen cruzito wall motion. Transmitral Doppler flow pattern is Grade I-abnormal relaxation pattern. RIGHT VENTRICLE The right ventricle is normal size. There is normal right ventricular wall thickness. The right ventr icular systolic function is normal. ATRIA The left atrium is borderline dilated. The right atrium is not well visualized. The interatrial septu m is intact with no evidence for an atrial septal defect or patent foramen ovale as noted on 2-D or D oppler imaging. AORTIC VALVE The aortic valve is calcified but opens well. Doppler and Color Flow revealed trace aortic regurgitat ion. There is no significant aortic valvular stenosis. MITRAL VALVE The mitral valve is calcified but opens well. There is no evidence of mitral valve prolapse. There is no mitral valve stenosis. Doppler and Color-flow revealed trace mitral regurgitation. TRICUSPID VALVE The tricuspid valve is normal in structure and function. Doppler and Color Flow revealed trace tricus pid regurgitation. There is no tricuspid valve stenosis. PULMONIC VALVE The pulmonic valve is not well visualized. Doppler and Color Flow revealed no pulmonic valvular regur gitation. GREAT VESSELS The aortic root is normal in size. The IVC was not well visualized. PERICARDIAL EFFUSION There is no evidence of significant pericardial effusion. Critical Notification Critical Value: No <Conclusion> The left ventricular systolic function is normal. The Ejection Fraction is 55-60%. There is normal LV segmental wall motion. Transmitral Doppler flow pattern is Grade I-abnormal relaxation pattern. Trace mitral regurgitation. Trace tricuspid regurgitation. There is no evidence of significant pericardial effusion. Signed by : Mykel Anthony, Electronically Approved : 11/10/2018 17:36:26
[2018-11-10] MEDS: ENOXAPARIN 40 MG/0.4 ML SYRINGE. SQ SCH (18:30)
[2018-11-10] MEDS ORDERED: cefTRIAXone IV Push 1 GM VIAL. IVP SCH (21:00)
[2018-11-11] MEDS: PIPERACILLIN/TAZOBACTAM 3.375 GM in IV NORMAL SALINE 50ML 50 ML IV SCH ×5 (00:45→23:58)
--- NOTE | 2018-11-11 02:40 | CONS ---
DATE OF CONSULTATION: 11/10/2018 ROOM: 200. REQUESTING PHYSICIAN: Dr. Hernandez. REASON FOR CONSULTATION: Sepsis. 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 Since that time, he has been a resident at [facility]. Also, has a history of BPH and underwent a surgical procedure for this and according to chart, was noted to have urinary tract infection in the distant past. Apparently at the [facility], he developed mental status change, developed fever up to 101 and also became hypotensive. He was brought to [facility], had a temperature of 101.8 on arrival, white blood cell count of 11.2. Urinalysis was concerning for urinary tract infection. Chest x-ray was consistent with CHF. Head CT was obtained, which showed no acute intracranial abnormality. He has been receiving Rocephin. Overnight, apparently he had several episodes of 5-second pauses in his heart rate and is now requiring a pacemaker at some point. Currently, the patient is lying in bed. He denies any headaches, no change in vision. He does have some sinus congestion, but that is nothing unusual for him. He has no sore throat. Occasional cough and no sputum production. He denies any chest pain or shortness of air. He has no nausea, no vomiting, no constipation. No dysuria, frequency or urgency. Denies any incontinence. Denies any rashes or itches. PAST MEDICAL HISTORY: Positive for BPH, previous UTI, CVA, dysphagia, facial weakness, hyperlipidemia, neoplasm of the bladder, apraxia, bradycardia, COPD, hypertension, hemiplegia, seizures, obesity, arthritis. PAST SURGICAL HISTORY: Positive for cataract extraction, also had a prostate surgery and hernia repair. REVIEW OF SYSTEMS: Otherwise negative. ALLERGIES: No known drug allergies. SOCIAL HISTORY: He is . His is currently with him. No recent tobacco or alcohol. FAMILY HISTORY: Noncontributory. CURRENT MEDICATIONS: Include Norvasc, Tylenol, Children's aspirin, Lipitor, Rocephin, Zyrtec, Celexa, Proscar, Neurontin, insulin, Keppra, Flomax. Other meds are available and reviewed in the chart. PHYSICAL EXAMINATION: VITAL SIGNS: T-max is 101.8, currently 98.1, pulse 97, respirations 20, blood pressure 140/80, satting 93% on room air. CONSTITUTIONAL: He is lying in bed. He appears comfortable. He is in no acute distress. HEENT: Pupils are status post cataract surgery with normal conjunctivae. Oral cavity, pharynx is clear, there is some questionable dentition. NECK: Supple, without JVD. LUNGS: Decreased in the bases. HEART: S1, S2. ABDOMEN: Soft, nontender, no guarding or rebound. EXTREMITIES: No clubbing or cyanosis. No gross edema. SKIN: Warm to touch without signs of rash. NEUROLOGIC: He is nonfocal, answers questions appropriately. PSYCHIATRIC: Affect is appropriate. LABORATORY DATA: Today, white count 10.3, hemoglobin 13.6, platelets 189, neutrophils of 89. He did have 36 bands on presentation. Most recent glucose of 271, creatinine of 0.5, AST 39, ALT was 43. Urinalysis consistent with urinary tract infection. Drug screen negative. Radiology reviewed in the history of present illness. IMPRESSION: 1. Sepsis present on admission, 11/09/2018. 2. Leukocytosis. 3. Urinary tract infection, present on admission, 11/09/2018. 4. Bradycardia with sinus pauses. RECOMMENDATIONS: Having been at [facility], he is at risk for some resistant type organisms. Therefore, we will add Zosyn, which will also cover potential Enterococcus and discontinue the Rocephin for now. Follow up labs and cultures. He will need pacemaker when infection is cleared. This was discussed with ; discussed with nursing; discussed with Rosita, nurse practitioner in Cardiology. Thank you for allowing me to participate in this patient's care. Should you have any questions, please do not hesitate to contact me. KELLY GERMAIN MD DR: LIAN/dragan JOB#: [id number] / [id number]
[2018-11-11 03:59] VITALS: BP 123/71
[2018-11-11 04:45] LABS: BASO % 1 % (0-3); EOS % 1 % (0-3); HEMATOCRIT 42.5 % (39.0-53.0); HEMOGLOBIN 14.2 g/dL (13.0-17.5); LYMPH # 1.3 x10^3/uL (1.0-4.8); LYMPH % 28 % (24-48); MEAN CORPUSCULAR HEMOGLOBIN 31 pg (25-35); MEAN CORPUSCULAR HGB CONC 33 g/dL (31-37); MEAN CORPUSCULAR VOLUME 93 fL (79-100); MONO # 0.3 x10^3/uL (0.0-1.1); MONO % 7 % (0-9); NEUT % 64 % (31-73); PLATELET COUNT 153 x10^3/uL (140-400); RED BLOOD COUNT 4.57 x10^6/uL (4.30-5.70); RED CELL DISTRIBUTION WIDTH 13.4 % (11.5-14.5); WHITE BLOOD COUNT 4.7 x10^3/uL (4.0-11.0)
[2018-11-11 05:11] LABS: ALBUMIN 2.5 g/dL (3.4-5.0); ALBUMIN/GLOBULIN RATIO 0.7 (1.0-1.7); CALCIUM 8.7 mg/dL (8.5-10.1); CREATININE 0.7 mg/dL (0.7-1.3); GFR 109.6; POTASSIUM 3.4 mmol/L (3.5-5.1); TOTAL BILIRUBIN 1.4 mg/dL (0.2-1.0)
[2018-11-11 07:00] VITALS: BP 102/57
[2018-11-11] MEDS: TAMSULOSIN 0.4 MG CAP.ER.24H. PO SCH (08:37)
[2018-11-11] MEDS: FINASTERIDE 5 MG TABLET. PO SCH (08:37)
[2018-11-11] MEDS: CETIRIZINE HCL 10 MG TABLET. PO SCH (08:37)
[2018-11-11] MEDS: MULTIVITAMIN with MINERAL TABLET. PO SCH (08:37)
[2018-11-11] MEDS: POLYETHYLENE GLYCOL 3350 17 GM PACKET. PO SCH (08:37)
[2018-11-11] MEDS: ASPIRIN CHEWABLE 81 MG TABLET. PO SCH (08:37)
[2018-11-11] MEDS: levETIRAcetam 500 MG TABLET PO SCH ×2 (08:38→20:24)
[2018-11-11] MEDS: amLODIPine BESYLATE 5 MG TABLET PO SCH (08:38)
[2018-11-11] MEDS: INSULIN LISPRO 300 UNITS/3 ML INSULN.PEN. SQ SCH ×3 (08:45→17:37)
[2018-11-11] MEDS: DICLOFENAC SODIUM 1% TOPICAL GEL 100GM TUBE. TP SCH ×4 (08:50→21:49)
--- NOTE | 2018-11-11 10:41 | PDOC ---
PROGRESS NOTES Subjective Subjective Denied any dizziness or palpitations Objective Objective Vital Signs Date Time Temp Pulse Resp B/P (MAP) Pulse Ox O2 Delivery O2 Flow Rate FiO2 11/11/18 08:38 77 102/57 11/11/18 07:00 97.8 92 Room Air 97.8 11/11/18 03:59 16 Intake and Output 11/11/18 07:00 Intake Total 810 ml Output Total 1074 ml Balance -264 ml Intake Oral 710 ml IV Total 100 ml Output Urine Total 1074 ml # Voids 7 # Bowel Movements 1 Physical Exam Abdomen: Soft, Other (obese) Heart: Regular rate (SR), Normal S1, Normal S2, Other (3/6 systolic murmur to apex) Extremities: No cyanosis, Other (1-2+ bilateral LE pitting edema) General: Alert, Oriented X3, Cooperative, No acute distress HEENT: Atraumatic, Mucous membr. moist/pink Lungs: Other (basilar crackles) MUSCULOSKELETAL: Other (left side hemiparesis) Neuro: Normal speech Psych/Mental Status: Mental status NL, Mood NL Assessment Assessment 1. 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 Patient continues to have bradyarrhythmias on telemetry. 2-D echo showed normal LV systolic function. He is not on any rate lowering medications. He will need permanent pacemaker implantation once cleared from ID standpoint. 2. UTI with sepsis: Continue antibiotics per ID team 3. Metabolic encephalopathy: Improved 4. HTN: controlled 5. DM2/HLP: Per IM 6. Mild acute on chronic diastolic CHF: appears better compensated. Plan Plan of Care Problems Medical Problems: (1) Acute metabolic encephalopathy Status: Acute (2) CVA, old, hemiparesis Status: Acute (3) Hyperglycemia Status: Acute (4) Sepsis Status: Acute (5) UTI (urinary tract infection) Status: Acute Comment Review of Relevant I have reviewed the following items evin (where applicable) has been applied. Labs Laboratory Tests Test 11/10/18 11:18 11/10/18 16:37 11/10/18 20:50 11/11/18 04:30 Glucose (Fingerstick) 271 mg/dL (70-99) 241 mg/dL (70-99) 281 mg/dL (70-99) White Blood Count 4.7 x10^3/uL (4.0-11.0) Red Blood Count 4.57 x10^6/uL (4.30-5.70) Hemoglobin 14.2 g/dL (13.0-17.5) Hematocrit 42.5 % (39.0-53.0) Mean Corpuscular Volume 93 fL (79-100) Mean Corpuscular Hemoglobin 31 pg (25-35) Mean Corpuscular Hemoglobin Concent 33 g/dL (31-37) Red Cell Distribution Width 13.4 % (11.5-14.5) Platelet Count 153 x10^3/uL (140-400) Neutrophils (%) (Auto) 64 % (31-73) Lymphocytes (%) (Auto) 28 % (24-48) Monocytes (%) (Auto) 7 % (0-9) Eosinophils (%) (Auto) 1 % (0-3) Basophils (%) (Auto) 1 % (0-3) Neutrophils # (Auto) 3.0 x10^3uL (1.8-7.7) Lymphocytes # (Auto) 1.3 x10^3/uL (1.0-4.8) Monocytes # (Auto) 0.3 x10^3/uL (0.0-1.1) Eosinophils # (Auto) 0.0 x10^3/uL (0.0-0.7) Basophils # (Auto) 0.0 x10^3/uL (0.0-0.2) Sodium Level 139 mmol/L (136-145) Potassium Level 3.4 mmol/L (3.5-5.1) Chloride Level 103 mmol/L (98-107) Carbon Dioxide Level 23 mmol/L (21-32) Anion Gap 13 (6-14) Blood Urea Nitrogen 11 mg/dL (8-26) Creatinine 0.7 mg/dL (0.7-1.3) Estimated GFR (Cockcroft-Gault) 109.6 BUN/Creatinine Ratio 16 (6-20) Glucose Level 253 mg/dL (70-99) Calcium Level 8.7 mg/dL (8.5-10.1) Total Bilirubin 1.4 mg/dL (0.2-1.0) Aspartate Amino Transf (AST/SGOT) 41 U/L (15-37) Alanine Aminotransferase (ALT/SGPT) 47 U/L (16-63) Alkaline Phosphatase 74 U/L (46-116) Total Protein 6.0 g/dL (6.4-8.2) Albumin 2.5 g/dL (3.4-5.0) Albumin/Globulin Ratio 0.7 (1.0-1.7) Test 11/11/18 07:23 Glucose (Fingerstick) 255 mg/dL (70-99) Microbiology 11/09/18 Blood Culture - Final, Complete Medications Current Medications Ceftriaxone Sodium (Rocephin) 1 gm Q24H IVP ; Start 11/10/18 at 21:00; Stop 11/10/18 at 21:00; Status DC Enoxaparin Sodium (Lovenox 40mg Syringe) 40 mg Q24H SQ Last administered on 11/10/18at 18:30; Start 11/10/18 at 16:00 Piperacillin Sod/ Tazobactam Sod 3.375 gm/Sodium Chloride 50 ml @ 100 mls/hr Q6HRS IV Last administered on 11/11/18at 06:22; Start 11/10/18 at 12:30 Vitals/I & O Vital Sign - Last 24 Hours 11/10/18 11/10/18 11/10/18 11/10/18 11:25 15:08 19:24 20:00 Temp 98.1 98.2 98.5 98.1 98.2 98.5 Pulse 97 94 97 Resp 20 20 18 B/P (MAP) 140/80 (100) 129/64 (85) 123/62 (82) Pulse Ox 93 93 90 O2 Delivery Room Air Room Air Room Air Room Air 11/10/18 11/11/18 11/11/18 11/11/18 22:31 03:59 07:00 08:38 Temp 98.6 98.1 97.8 98.6 98.1 97.8 Pulse 88 78 77 77 Resp 16 16 B/P (MAP) 125/66 (85) 123/71 (88) 102/57 (72) 102/57 Pulse Ox 93 93 92 O2 Delivery Room Air Room Air Room Air Intake and Output 11/10/18 11/10/18 11/11/18 15:00 23:00 07:00 Intake Total 120 ml 640 ml 50 ml Output Total 774 ml 300 ml Balance -654 ml 340 ml 50 ml LATANYA GUTIERREZ MD November 11, 2018 10:41
[2018-11-11 11:00] VITALS: BP 120/68
[2018-11-11 12:10] LABS: HEMOGLOBIN A1C 11.5 % (4.8-5.6)
[2018-11-11] MEDS: ATORVASTATIN CALCIUM 20 MG TABLET PO SCH (12:27)
--- NOTE | 2018-11-11 12:36 | PDOC ---
PROGRESS NOTES Subjective Subjective Patient without complaint, denies lightheadedness. Objective Objective Vital Signs Date Time Temp Pulse Resp B/P (MAP) Pulse Ox O2 Delivery O2 Flow Rate FiO2 11/11/18 11:00 98.0 88 120/68 (85) 93 Room Air 98.0 11/11/18 03:59 16 Intake and Output 11/11/18 07:00 Intake Total 810 ml Output Total 1074 ml Balance -264 ml Intake Oral 710 ml IV Total 100 ml Output Urine Total 1074 ml # Voids 7 # Bowel Movements 1 Physical Exam Abdomen: Normal bowel sounds, Soft, No tenderness Heart: Regular rate Extremities: No edema General: Alert, Oriented X3, No acute distress Lungs: Clear to auscultation Assessment Assessment Problems Medical Problems: (1) Acute metabolic encephalopathy Status: Acute (2) CVA, old, hemiparesis Status: Acute (3) Hyperglycemia Status: Acute (4) Sepsis Status: Acute (5) UTI (urinary tract infection) Status: Acute Plan Plan of Care 1. Sepsis with UTI - stable, continue Zosyn per ID, final culture reports pending. 2. 2nd degree heart block with pauses - Cardiology recommends PPM after c learance by ID. Continue to monitor. Patient apparently asymptomatic. 3. DM2 - new diagnosis for patient with A1C of 11. Starting Metformin and Lantus, continue SS. 4. HTN - controlled, continue Amlodipine. Comment Review of Relevant I have reviewed the following items evin (where applicable) has been applied. Labs Laboratory Tests Test 11/09/18 18:42 11/09/18 18:45 11/09/18 19:40 11/09/18 22:45 Glucose (Fingerstick) 318 mg/dL (70-99) White Blood Count 11.2 x10^3/uL (4.0-11.0) Red Blood Count 5.06 x10^6/uL (4.30-5.70) Hemoglobin 15.5 g/dL (13.0-17.5) Hematocrit 46.9 % (39.0-53.0) Mean Corpuscular Volume 93 fL (79-100) Mean Corpuscular Hemoglobin 31 pg (25-35) Mean Corpuscular Hemoglobin Concent 33 g/dL (31-37) Red Cell Distribution Width 13.5 % (11.5-14.5) Platelet Count 220 x10^3/uL (140-400) Neutrophils (%) (Auto) 94 % (31-73) Lymphocytes (%) (Auto) 4 % (24-48) Monocytes (%) (Auto) 2 % (0-9) Eosinophils (%) (Auto) 1 % (0-3) Basophils (%) (Auto) 0 % (0-3) Neutrophils # (Auto) 10.5 x10^3uL (1.8-7.7) Lymphocytes # (Auto) 0.4 x10^3/uL (1.0-4.8) Monocytes # (Auto) 0.2 x10^3/uL (0.0-1.1) Eosinophils # (Auto) 0.1 x10^3/uL (0.0-0.7) Basophils # (Auto) 0.0 x10^3/uL (0.0-0.2) Segmented Neutrophils % 58 % (35-66) Band Neutrophils % 36 % (0-9) Lymphocytes % 5 % (24-48) Eosinophils % 1 % (0-5) Platelet Estimate Adequate (ADEQUATE) Large Platelets Few Giant Platelets Occ Sodium Level 139 mmol/L (136-145) Potassium Level 4.0 mmol/L (3.5-5.1) Chloride Level 101 mmol/L (98-107) Carbon Dioxide Level 25 mmol/L (21-32) Anion Gap 13 (6-14) Blood Urea Nitrogen 14 mg/dL (8-26) Creatinine 0.9 mg/dL (0.7-1.3) Estimated GFR (Cockcroft-Gault) 82.0 BUN/Creatinine Ratio 16 (6-20) Glucose Level 321 mg/dL (70-99) Lactic Acid Level 2.5 mmol/L (0.4-2.0) 1.4 mmol/L (0.4-2.0) Calcium Level 9.3 mg/dL (8.5-10.1) Total Bilirubin 1.3 mg/dL (0.2-1.0) Aspartate Amino Transf (AST/SGOT) 39 U/L (15-37) Alanine Aminotransferase (ALT/SGPT) 43 U/L (16-63) Alkaline Phosphatase 114 U/L (46-116) Troponin I Quantitative < 0.017 ng/mL (0.000-0.055) SH-Hda-T-Type Natriuretic Peptide 57 pg/mL (0-449) Total Protein 7.4 g/dL (6.4-8.2) Albumin 3.4 g/dL (3.4-5.0) Albumin/Globulin Ratio 0.9 (1.0-1.7) Urine Collection Type Unknown Urine Color Yellow Urine Clarity Clear Urine pH 5.0 Urine Specific [place] >=1.030 Urine Protein Negative mg/dL (NEG-TRACE) Urine Glucose (UA) >=1000 mg/dL (NEG) Urine Ketones (Stick) Trace mg/dL (NEG) Urine Blood Moderate (NEG) Urine Nitrite Positive (NEG) Urine Bilirubin Negative (NEG) Urine Urobilinogen Dipstick 1.0 mg/dL (0.2 mg/dL) Urine Leukocyte Esterase Small (NEG) Urine RBC Occ /HPF (0-2) Urine WBC >40 /HPF (0-4) Urine Bacteria Many /HPF (0-FEW) Test 11/10/18 02:00 11/10/18 04:10 11/10/18 07:15 11/10/18 11:18 Nasal Screen MRSA (PCR) Negative (Negative) White Blood Count 10.3 x10^3/uL (4.0-11.0) Red Blood Count 4.40 x10^6/uL (4.30-5.70) Hemoglobin 13.6 g/dL (13.0-17.5) Hematocrit 40.6 % (39.0-53.0) Mean Corpuscular Volume 92 fL (79-100) Mean Corpuscular Hemoglobin 31 pg (25-35) Mean Corpuscular Hemoglobin Concent 33 g/dL (31-37) Red Cell Distribution Width 13.4 % (11.5-14.5) Platelet Count 189 x10^3/uL (140-400) Neutrophils (%) (Auto) 86 % (31-73) Lymphocytes (%) (Auto) 10 % (24-48) Monocytes (%) (Auto) 3 % (0-9) Eosinophils (%) (Auto) 1 % (0-3) Basophils (%) (Auto) 0 % (0-3) Neutrophils # (Auto) 8.9 x10^3uL (1.8-7.7) Lymphocytes # (Auto) 1.0 x10^3/uL (1.0-4.8) Monocytes # (Auto) 0.3 x10^3/uL (0.0-1.1) Eosinophils # (Auto) 0.1 x10^3/uL (0.0-0.7) Basophils # (Auto) 0.0 x10^3/uL (0.0-0.2) Sodium Level 142 mmol/L (136-145) Potassium Level 3.6 mmol/L (3.5-5.1) Chloride Level 107 mmol/L (98-107) Carbon Dioxide Level 24 mmol/L (21-32) Anion Gap 11 (6-14) Blood Urea Nitrogen 10 mg/dL (8-26) Creatinine 0.5 mg/dL (0.7-1.3) Estimated GFR (Cockcroft-Gault) 161.7 Glucose Level 250 mg/dL (70-99) Hemoglobin A1c 11.5 % (4.8-5.6) Calcium Level 8.3 mg/dL (8.5-10.1) Magnesium Level 1.9 mg/dL (1.8-2.4) Thyroid Stimulating Hormone (TSH) 1.550 uIU/mL (0.358-3.74) Glucose (Fingerstick) 213 mg/dL (70-99) 271 mg/dL (70-99) Test 11/10/18 16:37 11/10/18 20:50 11/11/18 04:30 11/11/18 07:23 Glucose (Fingerstick) 241 mg/dL (70-99) 281 mg/dL (70-99) 255 mg/dL (70-99) White Blood Count 4.7 x10^3/uL (4.0-11.0) Red Blood Count 4.57 x10^6/uL (4.30-5.70) Hemoglobin 14.2 g/dL (13.0-17.5) Hematocrit 42.5 % (39.0-53.0) Mean Corpuscular Volume 93 fL (79-100) Mean Corpuscular Hemoglobin 31 pg (25-35) Mean Corpuscular Hemoglobin Concent 33 g/dL (31-37) Red Cell Distribution Width 13.4 % (11.5-14.5) Platelet Count 153 x10^3/uL (140-400) Neutrophils (%) (Auto) 64 % (31-73) Lymphocytes (%) (Auto) 28 % (24-48) Monocytes (%) (Auto) 7 % (0-9) Eosinophils (%) (Auto) 1 % (0-3) Basophils (%) (Auto) 1 % (0-3) Neutrophils # (Auto) 3.0 x10^3uL (1.8-7.7) Lymphocytes # (Auto) 1.3 x10^3/uL (1.0-4.8) Monocytes # (Auto) 0.3 x10^3/uL (0.0-1.1) Eosinophils # (Auto) 0.0 x10^3/uL (0.0-0.7) Basophils # (Auto) 0.0 x10^3/uL (0.0-0.2) Sodium Level 139 mmol/L (136-145) Potassium Level 3.4 mmol/L (3.5-5.1) Chloride Level 103 mmol/L (98-107) Carbon Dioxide Level 23 mmol/L (21-32) Anion Gap 13 (6-14) Blood Urea Nitrogen 11 mg/dL (8-26) Creatinine 0.7 mg/dL (0.7-1.3) Estimated GFR (Cockcroft-Gault) 109.6 BUN/Creatinine Ratio 16 (6-20) Glucose Level 253 mg/dL (70-99) Calcium Level 8.7 mg/dL (8.5-10.1) Total Bilirubin 1.4 mg/dL (0.2-1.0) Aspartate Amino Transf (AST/SGOT) 41 U/L (15-37) Alanine Aminotransferase (ALT/SGPT) 47 U/L (16-63) Alkaline Phosphatase 74 U/L (46-116) Total Protein 6.0 g/dL (6.4-8.2) Albumin 2.5 g/dL (3.4-5.0) Albumin/Globulin Ratio 0.7 (1.0-1.7) Test 11/11/18 11:35 Glucose (Fingerstick) 263 mg/dL (70-99) Laboratory Tests Test 11/10/18 16:37 11/10/18 20:50 11/11/18 04:30 11/11/18 07:23 Glucose (Fingerstick) 241 mg/dL (70-99) 281 mg/dL (70-99) 255 mg/dL (70-99) White Blood Count 4.7 x10^3/uL (4.0-11.0) Red Blood Count 4.57 x10^6/uL (4.30-5.70) Hemoglobin 14.2 g/dL (13.0-17.5) Hematocrit 42.5 % (39.0-53.0) Mean Corpuscular Volume 93 fL (79-100) Mean Corpuscular Hemoglobin 31 pg (25-35) Mean Corpuscular Hemoglobin Concent 33 g/dL (31-37) Red Cell Distribution Width 13.4 % (11.5-14.5) Platelet Count 153 x10^3/uL (140-400) Neutrophils (%) (Auto) 64 % (31-73) Lymphocytes (%) (Auto) 28 % (24-48) Monocytes (%) (Auto) 7 % (0-9) Eosinophils (%) (Auto) 1 % (0-3) Basophils (%) (Auto) 1 % (0-3) Neutrophils # (Auto) 3.0 x10^3uL (1.8-7.7) Lymphocytes # (Auto) 1.3 x10^3/uL (1.0-4.8) Monocytes # (Auto) 0.3 x10^3/uL (0.0-1.1) Eosinophils # (Auto) 0.0 x10^3/uL (0.0-0.7) Basophils # (Auto) 0.0 x10^3/uL (0.0-0.2) Sodium Level 139 mmol/L (136-145) Potassium Level 3.4 mmol/L (3.5-5.1) Chloride Level 103 mmol/L (98-107) Carbon Dioxide Level 23 mmol/L (21-32) Anion Gap 13 (6-14) Blood Urea Nitrogen 11 mg/dL (8-26) Creatinine 0.7 mg/dL (0.7-1.3) Estimated GFR (Cockcroft-Gault) 109.6 BUN/Creatinine Ratio 16 (6-20) Glucose Level 253 mg/dL (70-99) Calcium Level 8.7 mg/dL (8.5-10.1) Total Bilirubin 1.4 mg/dL (0.2-1.0) Aspartate Amino Transf (AST/SGOT) 41 U/L (15-37) Alanine Aminotransferase (ALT/SGPT) 47 U/L (16-63) Alkaline Phosphatase 74 U/L (46-116) Total Protein 6.0 g/dL (6.4-8.2) Albumin 2.5 g/dL (3.4-5.0) Albumin/Globulin Ratio 0.7 (1.0-1.7) Test 11/11/18 11:35 Glucose (Fingerstick) 263 mg/dL (70-99) Microbiology 11/09/18 Blood Culture - Final, Complete Medications Current Medications Sodium Chloride 1,000 ml @ 1,000 mls/hr 1X ONCE IV Last administered on 11/09/18at 19:09; Start 11/09/18 at 18:45; Stop 11/09/18 at 19:44; Status DC Iohexol (Omnipaque 350 Mg/ml) 75 ml 1X ONCE IV ; Start 11/09/18 at 19:00; Stop 11/09/18 at 19:01; Status DC Info (CONTRAST GIVEN -- Rx MONITORING) 1 each PRN DAILY PRN MC SEE COMMENTS; Start 11/09/18 at 19:00; Stop 11/11/18 at 18:59 Acetaminophen (Tylenol) 1,000 mg 1X ONCE PO Last administered on 11/09/18at 19:14; Start 11/09/18 at 19:15; Stop 11/09/18 at 19:16; Status DC Sodium Chloride 1,000 ml @ 1,000 mls/hr 1X ONCE IV Last administered on 11/09/18at 19:50; Start 11/09/18 at 19:45; Stop 11/09/18 at 20:44; Status DC Ceftriaxone Sodium (Rocephin) 1 gm 1X ONCE IVP Last administered on 11/09/18at 20:37; Start 11/09/18 at 20:30; Stop 11/09/18 at 20:36; Status DC Ondansetron HCl (Zofran) 4 mg PRN Q8HRS PRN IV NAUSEA/VOMITING; Start 11/09/18 at 20:45; Stop 11/10/18 at 09:10; Status DC Sodium Chloride 1,000 ml @ 125 mls/hr Q8H IV Last administered on 11/09/18at 22:05; Start 11/09/18 at 20:41; Stop 11/10/18 at 20:40; Status DC Acetaminophen (Tylenol) 650 mg PRN Q4HRS PRN PO FEVER; Start 11/09/18 at 20:45; Stop 11/10/18 at 08:29; Status DC Ceftriaxone Sodium (Rocephin) 1 gm Q24H IVP ; Start 11/10/18 at 21:00; Stop 11/10/18 at 21:00; Status DC Insulin Human Lispro (HumaLOG) 0-7 UNITS TIDWMEALS SQ Last administered on 11/11/18at 08:45; Start 11/10/18 at 08:30 Dextrose (Dextrose 50%-Water Syringe) 12.5 gm PRN Q15MIN PRN IV SEE COMMENTS; Start 11/10/18 at 08:30 Acetaminophen (Tylenol) 325 mg PRN Q4HRS PRN PO MILD PAIN / TEMP; Start 11/10/18 at 08:30 Amlodipine Besylate (Norvasc) 5 mg DAILY PO Last administered on 11/11/18at 08:38; Start 11/10/18 at 09:00 Aspirin (Children'S Aspirin) 81 mg DAILY PO Last administered on 11/11/18at 08:37; Start 11/10/18 at 09:00 Atorvastatin Calcium (Lipitor) 20 mg DAILY PO Last administered on 11/10/18at 09:55; Start 11/10/18 at 09:00 Citalopram Hydrobromide (CeleXA) 10 mg DAILY PO ; Start 11/10/18 at 09:00; Stop 11/10/18 at 09:10; Status DC Diclofenac Sodium (Voltaren) 2 mainor QID TP Last administered on 11/11/18at 08:50; Start 11/10/18 at 09:00 Finasteride (Proscar) 5 mg DAILY PO Last administered on 11/11/18at 08:37; Start 11/10/18 at 09:00 Gabapentin (Neurontin) 300 mg PRN QHS PRN PO NEUROPATHIC PAIN; Start 11/10/18 at 08:30 Levetiracetam (Keppra) 1,000 mg BID PO Last administered on 11/11/18at 08:38; Start 11/10/18 at 09:00 Tamsulosin HCl (Flomax) 0.4 mg DAILY PO Last administered on 11/11/18at 08:37; Start 11/10/18 at 09:00 Cetirizine HCl (ZyrTEC) 10 mg DAILY PO Last administered on 11/11/18at 08:37; Start 11/10/18 at 09:00 Multivitamins (Thera M Plus) 1 tab DAILY PO Last administered on 11/11/18at 08:37; Start 11/10/18 at 09:00 Nystatin (Mycostatin) 1 mainor PRN BID PRN TP REDNESS Last administered on 11/11/18at 08:50; Start 11/10/18 at 09:00 Polyethylene Glycol (miraLAX PACKET) 17 gm DAILY PO Last administered on 11/11/18at 08:37; Start 11/10/18 at 09:00 Furosemide (Lasix) 20 mg 1X ONCE IVP Last administered on 11/10/18at 09:57; Start 11/10/18 at 09:30; Stop 11/10/18 at 09:31; Status DC Piperacillin Sod/ Tazobactam Sod 3.375 gm/Sodium Chloride 50 ml @ 100 mls/hr Q6HRS IV Last administered on 11/11/18at 06:22; Start 11/10/18 at 12:30 Enoxaparin Sodium (Lovenox 40mg Syringe) 40 mg Q24H SQ Last administered on 11/10/18at 18:30; Start 11/10/18 at 16:00 Active Scripts Active Reported Tylenol (Acetaminophen) 325 Mg Tablet 325 Mg PO PRN Q4HRS PRN Aspirin 81 Mg Tab.chew 1 Tab PO DAILY Levetiracetam 500 Mg Tablet 1,000 Mg PO BID Miralax (Polyethylene Glycol 3350) 17 Gm Powd.pack 1 Packet PO DAILY Flomax (Tamsulosin Hcl) 0.4 Mg Cap.er.24h 1 Cap PO DAILY Multivitamins (Multivitamin) 1 Each Tablet 1 Tab PO DAILY Norvasc (Amlodipine Besylate) 5 Mg Tablet 1 Tab PO DAILY Atorvastatin Calcium 20 Mg Tablet 1 Tab PO DAILY Gabapentin 300 Mg Capsule 300 Mg PO PRN QHS PRN Proscar (Finasteride) 5 Mg Tablet 1 Tab PO DAILY Voltaren (Diclofenac Sodium) 100 Gm Gel..gram. 2 Gm TP QID Claritin (Loratadine) 10 Mg Tablet 1 Tab PO DAILY Citalopram Hbr (Citalopram Hydrobromide) 10 Mg Tablet 1 Tab PO DAILY Robitussin Cough-Chest Dm Liq (Guaifenesin/Dextromethorphan) 237 Ml Liquid 10 Ml PO PRN Q4HRS PRN Nystatin 15 Gm Cream..g. 1 Mainor TP PRN BID PRN Vitals/I & O Vital Sign - Last 24 Hours 11/10/18 11/10/18 11/10/18 11/10/18 15:08 19:24 20:00 22:31 Temp 98.2 98.5 98.6 98.2 98.5 98.6 Pulse 94 97 88 Resp 20 18 16 B/P (MAP) 129/64 (85) 123/62 (82) 125/66 (85) Pulse Ox 93 90 93 O2 Delivery Room Air Room Air Room Air Room Air 11/11/18 11/11/18 11/11/18 11/11/18 03:59 07:00 08:00 08:38 Temp 98.1 97.8 98.1 97.8 Pulse 78 77 77 Resp 16 B/P (MAP) 123/71 (88) 102/57 (72) 102/57 Pulse Ox 93 92 O2 Delivery Room Air Room Air Room Air 11/11/18 11:00 Temp 98.0 98.0 Pulse 88 B/P (MAP) 120/68 (85) Pulse Ox 93 O2 Delivery Room Air Intake and Output 11/10/18 11/10/18 11/11/18 15:00 23:00 07:00 Intake Total 120 ml 640 ml 50 ml Output Total 774 ml 300 ml Balance -654 ml 340 ml 50 ml CHAIM REICH MD November 11, 2018 12:36
--- NOTE | 2018-11-11 14:55 | PDOC ---
Infectious Disease Note Subjective Subjective Feeling alright + sinus pauses Denies CP/SOA No fevers last 24 hours ROS ROS per HPI Vital Sign Vital Signs Vital Signs Date Time Temp Pulse Resp B/P (MAP) Pulse Ox O2 Delivery O2 Flow Rate FiO2 11/11/18 11:00 98.0 88 120/68 (85) 93 Room Air 98.0 11/11/18 03:59 16 Physical Exam PHYSICAL EXAM GENERAL: Lying down, awake, NAD HEENT: Pupils are status post cataract surgery with normal conjunctivae. Oral cavity, pharynx is clear, there is some questionable dentition. NECK: Supple, without JVD. LUNGS: Decreased in the bases. HEART: S1, S2. ABDOMEN: Soft, nontender, no guarding or rebound. EXTREMITIES: No clubbing or cyanosis. No gross edema. SKIN: Warm to touch without signs of rash. NEUROLOGIC: Alert, answers questions appropriately. PIV Labs Lab Laboratory Tests Test 11/10/18 16:37 11/10/18 20:50 11/11/18 04:30 11/11/18 07:23 Glucose (Fingerstick) 241 mg/dL (70-99) 281 mg/dL (70-99) 255 mg/dL (70-99) White Blood Count 4.7 x10^3/uL (4.0-11.0) Red Blood Count 4.57 x10^6/uL (4.30-5.70) Hemoglobin 14.2 g/dL (13.0-17.5) Hematocrit 42.5 % (39.0-53.0) Mean Corpuscular Volume 93 fL (79-100) Mean Corpuscular Hemoglobin 31 pg (25-35) Mean Corpuscular Hemoglobin Concent 33 g/dL (31-37) Red Cell Distribution Width 13.4 % (11.5-14.5) Platelet Count 153 x10^3/uL (140-400) Neutrophils (%) (Auto) 64 % (31-73) Lymphocytes (%) (Auto) 28 % (24-48) Monocytes (%) (Auto) 7 % (0-9) Eosinophils (%) (Auto) 1 % (0-3) Basophils (%) (Auto) 1 % (0-3) Neutrophils # (Auto) 3.0 x10^3uL (1.8-7.7) Lymphocytes # (Auto) 1.3 x10^3/uL (1.0-4.8) Monocytes # (Auto) 0.3 x10^3/uL (0.0-1.1) Eosinophils # (Auto) 0.0 x10^3/uL (0.0-0.7) Basophils # (Auto) 0.0 x10^3/uL (0.0-0.2) Sodium Level 139 mmol/L (136-145) Potassium Level 3.4 mmol/L (3.5-5.1) Chloride Level 103 mmol/L (98-107) Carbon Dioxide Level 23 mmol/L (21-32) Anion Gap 13 (6-14) Blood Urea Nitrogen 11 mg/dL (8-26) Creatinine 0.7 mg/dL (0.7-1.3) Estimated GFR (Cockcroft-Gault) 109.6 BUN/Creatinine Ratio 16 (6-20) Glucose Level 253 mg/dL (70-99) Calcium Level 8.7 mg/dL (8.5-10.1) Total Bilirubin 1.4 mg/dL (0.2-1.0) Aspartate Amino Transf (AST/SGOT) 41 U/L (15-37) Alanine Aminotransferase (ALT/SGPT) 47 U/L (16-63) Alkaline Phosphatase 74 U/L (46-116) Total Protein 6.0 g/dL (6.4-8.2) Albumin 2.5 g/dL (3.4-5.0) Albumin/Globulin Ratio 0.7 (1.0-1.7) Test 11/11/18 11:35 Glucose (Fingerstick) 263 mg/dL (70-99) Micro 11/09. BC AMMENDED REPORT: GRAM NEGATIVE RODS SEEN IN THE 2ND OF TWO BOTTLES; Objective Assessment Sepsis with GNR bacteremia (POA), 11/09/2018. Leukocytosis, better Urinary tract infection, (POA), 11/09/2018. UC pending Bradycardia with sinus pauses. Plan Plan of Care Continue Zosyn Awaiting ID/susceptibilities GNR UC pending Will need pacemaker when Infection cleared Repeat BC in am D/w nursing Patient seen, examined, I agree with above assessment and plan formulated by NORA RODRIGUEZ APRN November 11, 2018 14:55 RHODA KEEN MD November 11, 2018 16:01
[2018-11-11 15:18] VITALS: BP 119/69
[2018-11-11] MEDS: ENOXAPARIN 40 MG/0.4 ML SYRINGE. SQ SCH (17:31)
[2018-11-11 19:52] VITALS: BP 135/75
[2018-11-11] MEDS: LACTOBACILLUS RHAMNOSUS GG 1 CAPSULE. PO SCH (20:24)
[2018-11-11] MEDS: GABAPENTIN 300 MG CAPSULE. PO PRN (20:24)
[2018-11-11] MEDS ORDERED: INSULIN GLARGINE 300 UNITS/3 ML INSULN.PEN. SQ SCH (21:00)
[2018-11-11 23:00] VITALS: BP 129/70
[2018-11-12 03:46] VITALS: BP 133/68
[2018-11-12] MEDS: PIPERACILLIN/TAZOBACTAM 3.375 GM in IV NORMAL SALINE 50ML 50 ML IV SCH ×4 (06:00→23:45)
[2018-11-12 07:00] VITALS: BP 113/72
[2018-11-12] MEDS: POLYETHYLENE GLYCOL 3350 17 GM PACKET. PO SCH (09:00)
--- NOTE | 2018-11-12 09:02 | PDOC ---
PROGRESS NOTES Subjective Subjective Denied any palpitations or dizziness Objective Objective Vital Signs Date Time Temp Pulse Resp B/P (MAP) Pulse Ox O2 Delivery O2 Flow Rate FiO2 11/12/18 08:00 Room Air 11/12/18 07:00 98.1 72 12 113/72 (86) 93 98.1 Intake and Output 11/12/18 06:59 Intake Total 640 ml Output Total 350 ml Balance 290 ml Intake Oral 640 ml Output Urine Total 350 ml # Voids 2 # Bowel Movements 2 Physical Exam Abdomen: Normal bowel sounds, Soft, No tenderness Heart: Regular rate Extremities: No edema General: Alert, Oriented X3, No acute distress HEENT: Atraumatic, Mucous membr. moist/pink Lungs: Clear to auscultation MUSCULOSKELETAL: Other (left side hemiparesis) Neuro: Normal speech Psych/Mental Status: Mental status NL, Mood NL Assessment Assessment 1. 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 Patient continues to have bradyarrhythmias on telemetry. 2-D echo showed normal LV systolic function. He is not on any rate lowering medications. He will need permanent pacemaker implantation once cleared from ID standpoint. 2. UTI with sepsis: Continue antibiotics per ID team 3. Metabolic encephalopathy: Improved 4. HTN: controlled 5. DM2/HLP: Per IM 6. Mild acute on chronic diastolic CHF: appears better compensated. Plan Plan of Care Problems Medical Problems: (1) Acute metabolic encephalopathy Status: Acute (2) CVA, old, hemiparesis Status: Acute (3) Hyperglycemia Status: Acute (4) Sepsis Status: Acute (5) UTI (urinary tract infection) Status: Acute Comment Review of Relevant I have reviewed the following items evin (where applicable) has been applied. Labs Laboratory Tests Test 11/11/18 11:35 11/11/18 16:49 11/11/18 20:20 11/12/18 08:00 Glucose (Fingerstick) 263 mg/dL (70-99) 235 mg/dL (70-99) 269 mg/dL (70-99) 203 mg/dL (70-99) Microbiology 11/09/18 Blood Culture - Final, Complete 11/09/18 Urine Culture - Preliminary, Resulted 11/09/18 Urine Culture Result 1 (GALEN) - Preliminary, Resulted Medications Current Medications Insulin Glargine (Lantus) 10 units QHS SQ Last administered on 11/11/18at 20:24; Start 11/11/18 at 21:00 Lactobacillus Rhamnosus (Culturelle) 1 cap BID PO Last administered on 11/11/18at 20:24; Start 11/11/18 at 21:00 Metformin HCl (Glucophage Xr) 500 mg DAILYWBKFT PO ; Start 11/12/18 at 08:00 Vitals/I & O Vital Sign - Last 24 Hours 11/11/18 11/11/18 11/11/18 11/11/18 11:00 15:18 19:52 20:00 Temp 98.0 98.2 97.7 98.0 98.2 97.7 Pulse 88 83 82 Resp 20 B/P (MAP) 120/68 (85) 119/69 (86) 135/75 (95) Pulse Ox 93 94 94 O2 Delivery Room Air Room Air Room Air Room Air 11/11/18 11/12/18 11/12/18 11/12/18 23:00 03:46 07:00 08:00 Temp 97.9 98.0 98.1 97.9 98.0 98.1 Pulse 78 79 72 Resp 12 B/P (MAP) 129/70 (89) 133/68 (89) 113/72 (86) Pulse Ox 94 95 93 O2 Delivery Room Air Room Air Room Air Room Air Intake and Output 11/11/18 11/11/18 11/12/18 14:59 22:59 06:59 Intake Total 240 ml 300 ml 100 ml Output Total 350 ml Balance 240 ml 300 ml -250 ml LATANYA GUTIERREZ MD November 12, 2018 09:02
[2018-11-12] MEDS: CETIRIZINE HCL 10 MG TABLET. PO SCH (09:15)
[2018-11-12] MEDS: TAMSULOSIN 0.4 MG CAP.ER.24H. PO SCH (09:15)
[2018-11-12] MEDS: metFORMIN XR 500 MG TAB.ER.24H PO SCH (09:15)
[2018-11-12] MEDS: amLODIPine BESYLATE 5 MG TABLET PO SCH (09:15)
[2018-11-12] MEDS: LACTOBACILLUS RHAMNOSUS GG 1 CAPSULE. PO SCH ×2 (09:15→20:26)
[2018-11-12] MEDS: FINASTERIDE 5 MG TABLET. PO SCH (09:15)
[2018-11-12] MEDS: ASPIRIN CHEWABLE 81 MG TABLET. PO SCH (09:15)
[2018-11-12] MEDS: ATORVASTATIN CALCIUM 20 MG TABLET PO SCH (09:16)
[2018-11-12] MEDS: levETIRAcetam 500 MG TABLET PO SCH ×2 (09:16→20:26)
[2018-11-12] MEDS: MULTIVITAMIN with MINERAL TABLET. PO SCH (09:16)
[2018-11-12] MEDS: INSULIN LISPRO 300 UNITS/3 ML INSULN.PEN. SQ SCH ×3 (09:35→17:52)
--- NOTE | 2018-11-12 11:03 | PDOC ---
PROGRESS NOTES Subjective Subjective Patient without complaint. Objective Objective Vital Signs Date Time Temp Pulse Resp B/P (MAP) Pulse Ox O2 Delivery O2 Flow Rate FiO2 11/12/18 09:15 72 113/72 11/12/18 08:00 Room Air 11/12/18 07:00 98.1 12 93 98.1 Intake and Output 11/12/18 07:00 Intake Total 640 ml Output Total 350 ml Balance 290 ml Intake Oral 640 ml Output Urine Total 350 ml # Voids 2 # Bowel Movements 2 Physical Exam Abdomen: Normal bowel sounds, Soft, No tenderness Heart: Regular rate Extremities: No edema General: Alert, Oriented X3, No acute distress Lungs: Clear to auscultation Assessment Assessment Problems Medical Problems: (1) Acute metabolic encephalopathy Status: Acute (2) CVA, old, hemiparesis Status: Acute (3) Hyperglycemia Status: Acute (4) Sepsis Status: Acute (5) UTI (urinary tract infection) Status: Acute Plan Plan of Care 1. Sepsis with UTI - stable, afebrile. Urine culture positive for E Coli, blood culture reports pending. Continue Zosyn per ID. 2. 2nd degree heart block with pauses - continues to have short pauses but appears asymptomatic. Cardiology following, to get PPM after clearance by ID. 3. DM2 - new diagnosis for him. FSBG improving, will increase Lantus tonight, continue Metformin and SS. 4. HTN - controlled, continue present medication. Comment Review of Relevant I have reviewed the following items evin (where applicable) has been applied. Labs Laboratory Tests Test 11/10/18 11:18 11/10/18 16:37 11/10/18 20:50 11/11/18 04:30 Glucose (Fingerstick) 271 mg/dL (70-99) 241 mg/dL (70-99) 281 mg/dL (70-99) White Blood Count 4.7 x10^3/uL (4.0-11.0) Red Blood Count 4.57 x10^6/uL (4.30-5.70) Hemoglobin 14.2 g/dL (13.0-17.5) Hematocrit 42.5 % (39.0-53.0) Mean Corpuscular Volume 93 fL (79-100) Mean Corpuscular Hemoglobin 31 pg (25-35) Mean Corpuscular Hemoglobin Concent 33 g/dL (31-37) Red Cell Distribution Width 13.4 % (11.5-14.5) Platelet Count 153 x10^3/uL (140-400) Neutrophils (%) (Auto) 64 % (31-73) Lymphocytes (%) (Auto) 28 % (24-48) Monocytes (%) (Auto) 7 % (0-9) Eosinophils (%) (Auto) 1 % (0-3) Basophils (%) (Auto) 1 % (0-3) Neutrophils # (Auto) 3.0 x10^3uL (1.8-7.7) Lymphocytes # (Auto) 1.3 x10^3/uL (1.0-4.8) Monocytes # (Auto) 0.3 x10^3/uL (0.0-1.1) Eosinophils # (Auto) 0.0 x10^3/uL (0.0-0.7) Basophils # (Auto) 0.0 x10^3/uL (0.0-0.2) Sodium Level 139 mmol/L (136-145) Potassium Level 3.4 mmol/L (3.5-5.1) Chloride Level 103 mmol/L (98-107) Carbon Dioxide Level 23 mmol/L (21-32) Anion Gap 13 (6-14) Blood Urea Nitrogen 11 mg/dL (8-26) Creatinine 0.7 mg/dL (0.7-1.3) Estimated GFR (Cockcroft-Gault) 109.6 BUN/Creatinine Ratio 16 (6-20) Glucose Level 253 mg/dL (70-99) Calcium Level 8.7 mg/dL (8.5-10.1) Total Bilirubin 1.4 mg/dL (0.2-1.0) Aspartate Amino Transf (AST/SGOT) 41 U/L (15-37) Alanine Aminotransferase (ALT/SGPT) 47 U/L (16-63) Alkaline Phosphatase 74 U/L (46-116) Total Protein 6.0 g/dL (6.4-8.2) Albumin 2.5 g/dL (3.4-5.0) Albumin/Globulin Ratio 0.7 (1.0-1.7) Test 11/11/18 07:23 11/11/18 11:35 11/11/18 16:49 11/11/18 20:20 Glucose (Fingerstick) 255 mg/dL (70-99) 263 mg/dL (70-99) 235 mg/dL (70-99) 269 mg/dL (70-99) Test 11/12/18 08:00 Glucose (Fingerstick) 203 mg/dL (70-99) Laboratory Tests Test 11/11/18 11:35 11/11/18 16:49 11/11/18 20:20 11/12/18 08:00 Glucose (Fingerstick) 263 mg/dL (70-99) 235 mg/dL (70-99) 269 mg/dL (70-99) 203 mg/dL (70-99) Microbiology 11/09/18 Blood Culture - Final, Complete 11/09/18 Urine Culture - Preliminary, Resulted 11/09/18 Urine Culture Result 1 (GALEN) - Preliminary, Resulted Medications Current Medications Sodium Chloride 1,000 ml @ 1,000 mls/hr 1X ONCE IV Last administered on 11/09/18at 19:09; Start 11/09/18 at 18:45; Stop 11/09/18 at 19:44; Status DC Iohexol (Omnipaque 350 Mg/ml) 75 ml 1X ONCE IV ; Start 11/09/18 at 19:00; Stop 11/09/18 at 19:01; Status DC Info (CONTRAST GIVEN -- Rx MONITORING) 1 each PRN DAILY PRN MC SEE COMMENTS; Start 11/09/18 at 19:00; Stop 11/11/18 at 18:59; Status DC Acetaminophen (Tylenol) 1,000 mg 1X ONCE PO Last administered on 11/09/18at 19:14; Start 11/09/18 at 19:15; Stop 11/09/18 at 19:16; Status DC Sodium Chloride 1,000 ml @ 1,000 mls/hr 1X ONCE IV Last administered on 11/09/18at 19:50; Start 11/09/18 at 19:45; Stop 11/09/18 at 20:44; Status DC Ceftriaxone Sodium (Rocephin) 1 gm 1X ONCE IVP Last administered on 11/09/18at 20:37; Start 11/09/18 at 20:30; Stop 11/09/18 at 20:36; Status DC Ondansetron HCl (Zofran) 4 mg PRN Q8HRS PRN IV NAUSEA/VOMITING; Start 11/09/18 at 20:45; Stop 11/10/18 at 09:10; Status DC Sodium Chloride 1,000 ml @ 125 mls/hr Q8H IV Last administered on 11/09/18at 22:05; Start 11/09/18 at 20:41; Stop 11/10/18 at 20:40; Status DC Acetaminophen (Tylenol) 650 mg PRN Q4HRS PRN PO FEVER; Start 11/09/18 at 20:45; Stop 11/10/18 at 08:29; Status DC Ceftriaxone Sodium (Rocephin) 1 gm Q24H IVP ; Start 11/10/18 at 21:00; Stop 11/10/18 at 21:00; Status DC Insulin Human Lispro (HumaLOG) 0-7 UNITS TIDWMEALS SQ Last administered on 11/12/18at 09:35; Start 11/10/18 at 08:30 Dextrose (Dextrose 50%-Water Syringe) 12.5 gm PRN Q15MIN PRN IV SEE COMMENTS; Start 11/10/18 at 08:30 Acetaminophen (Tylenol) 325 mg PRN Q4HRS PRN PO MILD PAIN / TEMP; Start 11/10/18 at 08:30 Amlodipine Besylate (Norvasc) 5 mg DAILY PO Last administered on 11/12/18at 09:15; Start 11/10/18 at 09:00 Aspirin (Children'S Aspirin) 81 mg DAILY PO Last administered on 11/12/18at 09:15; Start 11/10/18 at 09:00 Atorvastatin Calcium (Lipitor) 20 mg DAILY PO Last administered on 11/12/18at 09:16; Start 11/10/18 at 09:00 Citalopram Hydrobromide (CeleXA) 10 mg DAILY PO ; Start 11/10/18 at 09:00; Stop 11/10/18 at 09:10; Status DC Diclofenac Sodium (Voltaren) 2 mainor QID TP Last administered on 11/11/18at 21:49; Start 11/10/18 at 09:00 Finasteride (Proscar) 5 mg DAILY PO Last administered on 11/12/18at 09:15; Start 11/10/18 at 09:00 Gabapentin (Neurontin) 300 mg PRN QHS PRN PO NEUROPATHIC PAIN Last administered on 11/11/18 20:24; Start 11/10/18 at 08:30 Levetiracetam (Keppra) 1,000 mg BID PO Last administered on 11/12/18 09:16; Start 11/10/18 at 09:00 Tamsulosin HCl (Flomax) 0.4 mg DAILY PO Last administered on 11/12/18 09:15; Start 11/10/18 at 09:00 Cetirizine HCl (ZyrTEC) 10 mg DAILY PO Last administered on 11/12/18 09:15; Start 11/10/18 at 09:00 Multivitamins (Thera M Plus) 1 tab DAILY PO Last administered on 11/12/18 09:16; Start 11/10/18 at 09:00 Nystatin (Mycostatin) 1 mainor PRN BID PRN TP REDNESS Last administered on 11/11/18at 08:50; Start 11/10/18 at 09:00 Polyethylene Glycol (miraLAX PACKET) 17 gm DAILY PO Last administered on 11/11/18 08:37; Start 11/10/18 at 09:00 Furosemide (Lasix) 20 mg 1X ONCE IVP Last administered on 11/10/18 09:57; Start 11/10/18 at 09:30; Stop 11/10/18 at 09:31; Status DC Piperacillin Sod/ Tazobactam Sod 3.375 gm/Sodium Chloride 50 ml @ 100 mls/hr Q6HRS IV Last administered on 11/12/18 06:00; Start 11/10/18 at 12:30 Enoxaparin Sodium (Lovenox 40mg Syringe) 40 mg Q24H SQ Last administered on 11/11/18 17:31; Start 11/10/18 at 16:00 Metformin HCl (Glucophage Xr) 500 mg DAILYWBKFT PO Last administered on 11/12/18 09:15; Start 11/12/18 at 08:00 Insulin Glargine (Lantus) 10 units QHS SQ Last administered on 11/11/18 20:24; Start 11/11/18 at 21:00 Lactobacillus Rhamnosus (Culturelle) 1 cap BID PO Last administered on 11/12/18 09:15; Start 11/11/18 at 21:00 Active Scripts Active Reported Tylenol (Acetaminophen) 325 Mg Tablet 325 Mg PO PRN Q4HRS PRN Aspirin 81 Mg Tab.chew 1 Tab PO DAILY Levetiracetam 500 Mg Tablet 1,000 Mg PO BID Miralax (Polyethylene Glycol 3350) 17 Gm Powd.pack 1 Packet PO DAILY Flomax (Tamsulosin Hcl) 0.4 Mg Cap.er.24h 1 Cap PO DAILY Multivitamins (Multivitamin) 1 Each Tablet 1 Tab PO DAILY Norvasc (Amlodipine Besylate) 5 Mg Tablet 1 Tab PO DAILY Atorvastatin Calcium 20 Mg Tablet 1 Tab PO DAILY Gabapentin 300 Mg Capsule 300 Mg PO PRN QHS PRN Proscar (Finasteride) 5 Mg Tablet 1 Tab PO DAILY Voltaren (Diclofenac Sodium) 100 Gm Gel..gram. 2 Gm TP QID Claritin (Loratadine) 10 Mg Tablet 1 Tab PO DAILY Citalopram Hbr (Citalopram Hydrobromide) 10 Mg Tablet 1 Tab PO DAILY Robitussin Cough-Chest Dm Liq (Guaifenesin/Dextromethorphan) 237 Ml Liquid 10 Ml PO PRN Q4HRS PRN Nystatin 15 Gm Cream..g. 1 Mainor TP PRN BID PRN Vitals/I & O Vital Sign - Last 24 Hours 11/11/18 11/11/18 11/11/18 11/11/18 11:00 15:18 19:52 20:00 Temp 98.0 98.2 97.7 98.0 98.2 97.7 Pulse 88 83 82 Resp 20 20 B/P (MAP) 120/68 (85) 119/69 (86) 135/75 (95) Pulse Ox 93 94 94 O2 Delivery Room Air Room Air Room Air Room Air 11/11/18 11/12/18 11/12/18 11/12/18 23:00 03:46 07:00 08:00 Temp 97.9 98.0 98.1 97.9 98.0 98.1 Pulse 78 79 72 Resp 19 19 12 B/P (MAP) 129/70 (89) 133/68 (89) 113/72 (86) Pulse Ox 94 95 93 O2 Delivery Room Air Room Air Room Air Room Air 11/12/18 09:15 Pulse 72 B/P (MAP) 113/72 Intake and Output 11/11/18 11/11/18 11/12/18 15:00 23:00 07:00 Intake Total 240 ml 300 ml 100 ml Output Total 350 ml Balance 240 ml 300 ml -250 ml CHAIM REICH MD November 12, 2018 11:03
[2018-11-12 11:14] VITALS: BP 138/72
--- NOTE | 2018-11-12 11:26 | PDOC ---
Infectious Disease Note Subjective Subjective Comfortable + sinus pauses No fevers last 24 hours Vital Sign Vital Signs Vital Signs Date Time Temp Pulse Resp B/P (MAP) Pulse Ox O2 Delivery O2 Flow Rate FiO2 11/12/18 11:14 97.6 81 16 138/72 (94) 95 Room Air 97.6 Physical Exam PHYSICAL EXAM GENERAL: Lying down, awake, NAD HEENT: Pupils are status post cataract surgery with normal conjunctivae. Oral cavity, pharynx is clear, there is some questionable dentition. NECK: Supple, without JVD. LUNGS: Decreased in the bases. HEART: S1, S2. ABDOMEN: Soft, nontender, no guarding or rebound. EXTREMITIES: No clubbing or cyanosis. No gross edema. SKIN: Warm to touch without signs of rash. NEUROLOGIC: Alert, answers questions appropriately. PIV Labs Lab Laboratory Tests Test 11/11/18 11:35 11/11/18 16:49 11/11/18 20:20 11/12/18 08:00 Glucose (Fingerstick) 263 mg/dL (70-99) 235 mg/dL (70-99) 269 mg/dL (70-99) 203 mg/dL (70-99) Micro 11/09. BC AMMENDED REPORT: GRAM NEGATIVE RODS SEEN IN THE 2ND OF TWO BOTTLES; 11/09. URINE CULTURE RES 1 Preliminary Escherichia coli Greater than 100,000 colony forming units per mL Objective Assessment Sepsis with GNR bacteremia (POA), 11/09/2018. Leukocytosis, better Urinary tract infection, (POA), 11/09/2018. UC E. coli Bradycardia with sinus pauses. Plan Plan of Care Continue Zosyn Awaiting ID/susceptibilities GNR in blood Urine - E. coli susceptibilities pending Will need pacemaker when Infection cleared Repeat BC from today pending D/w Dr. Ochoa Pt seen and examined Agree with above A/P NORA BORDEN APRN November 12, 2018 11:26 RHODA KEEN MD November 12, 2018 15:45
[2018-11-12] MEDS: DICLOFENAC SODIUM 1% TOPICAL GEL 100GM TUBE. TP SCH (12:34)
[2018-11-12] MEDS: ACETAMINOPHEN 325 MG TABLET. PO PRN ×2 (13:21→20:26)
[2018-11-12 15:00] VITALS: BP 110/66
[2018-11-12] MEDS: ENOXAPARIN 40 MG/0.4 ML SYRINGE. SQ SCH (17:49)
[2018-11-12 19:25] VITALS: BP 132/74
[2018-11-12] MEDS: GABAPENTIN 300 MG CAPSULE. PO PRN (20:27)
[2018-11-12] MEDS: DICLOFENAC SODIUM 1% TOPICAL GEL 100GM TUBE. TP PRN (20:27)
[2018-11-12] MEDS: INSULIN GLARGINE 300 UNITS/3 ML INSULN.PEN. SQ SCH (21:48)
[2018-11-12 23:05] VITALS: BP 136/75
[2018-11-13 03:27] VITALS: BP 117/60
[2018-11-13] MEDS: PIPERACILLIN/TAZOBACTAM 3.375 GM in IV NORMAL SALINE 50ML 50 ML IV SCH ×3 (05:50→17:28)
[2018-11-13 06:01] LABS: CALCIUM 8.5 mg/dL (8.5-10.1); CREATININE 0.6 mg/dL (0.7-1.3); POTASSIUM 3.5 mmol/L (3.5-5.1)
[2018-11-13 07:24] VITALS: BP 124/75
[2018-11-13] MEDS: FINASTERIDE 5 MG TABLET. PO SCH (08:41)
[2018-11-13] MEDS: TAMSULOSIN 0.4 MG CAP.ER.24H. PO SCH (08:41)
[2018-11-13] MEDS: CETIRIZINE HCL 10 MG TABLET. PO SCH (08:41)
[2018-11-13] MEDS: levETIRAcetam 500 MG TABLET PO SCH ×2 (08:41→20:18)
[2018-11-13] MEDS: LACTOBACILLUS RHAMNOSUS GG 1 CAPSULE. PO SCH ×2 (08:41→20:18)
[2018-11-13] MEDS: MULTIVITAMIN with MINERAL TABLET. PO SCH (08:41)
[2018-11-13] MEDS: metFORMIN XR 500 MG TAB.ER.24H PO SCH (08:41)
[2018-11-13] MEDS: ATORVASTATIN CALCIUM 20 MG TABLET PO SCH (08:41)
[2018-11-13] MEDS: ASPIRIN CHEWABLE 81 MG TABLET. PO SCH (08:41)
[2018-11-13] MEDS: POLYETHYLENE GLYCOL 3350 17 GM PACKET. PO SCH (08:42)
[2018-11-13] MEDS: amLODIPine BESYLATE 5 MG TABLET PO SCH (08:42)
[2018-11-13] MEDS: INSULIN LISPRO 300 UNITS/3 ML INSULN.PEN. SQ SCH ×3 (08:50→17:32)
--- NOTE | 2018-11-13 09:57 | PDOC ---
Infectious Disease Note Subjective Subjective Comfortable + sinus pauses No fevers last 24 hours ROS ROS no n/v/d/ Vital Sign Vital Signs Vital Signs Date Time Temp Pulse Resp B/P (MAP) Pulse Ox O2 Delivery O2 Flow Rate FiO2 11/13/18 08:42 79 124/75 11/13/18 08:00 Room Air 11/13/18 07:24 97.6 17 94 97.6 Physical Exam PHYSICAL EXAM GENERAL: Lying down, awake, NAD HEENT: Pupils are status post cataract surgery with normal conjunctivae. Oral cavity, pharynx is clear, there is some questionable dentition. NECK: Supple, without JVD. LUNGS: Decreased in the bases. HEART: S1, S2. ABDOMEN: Soft, nontender, no guarding or rebound. EXTREMITIES: No clubbing or cyanosis. No gross edema. SKIN: Warm to touch without signs of rash. NEUROLOGIC: Alert, answers questions appropriately. PIV Labs Lab Laboratory Tests Test 11/12/18 11:45 11/12/18 16:36 11/12/18 20:45 11/13/18 05:25 Glucose (Fingerstick) 247 mg/dL (70-99) 261 mg/dL (70-99) 247 mg/dL (70-99) Sodium Level 139 mmol/L (136-145) Potassium Level 3.5 mmol/L (3.5-5.1) Chloride Level 104 mmol/L (98-107) Carbon Dioxide Level 25 mmol/L (21-32) Anion Gap 10 (6-14) Blood Urea Nitrogen 10 mg/dL (8-26) Creatinine 0.6 mg/dL (0.7-1.3) Estimated GFR (Cockcroft-Gault) 131.0 Glucose Level 259 mg/dL (70-99) Calcium Level 8.5 mg/dL (8.5-10.1) Test 11/13/18 07:11 Glucose (Fingerstick) 218 mg/dL (70-99) Micro BC g neg wilmer, id pending repeat neg urine with e coli Objective Assessment Sepsis with GNR bacteremia (POA), 11/09/2018. Leukocytosis, better Urinary tract infection, (POA), 11/09/2018. UC E. coli Bradycardia with sinus pauses. Plan Plan of Care Continue Zosyn Awaiting ID/susceptibilities GNR in blood Urine - E. coli susceptibilities pending Will need pacemaker when Infection cleared Repeat BC neg ROBBY KEEN MD November 13, 2018 09:57
[2018-11-13 10:37] VITALS: BP 131/69
[2018-11-13] MEDS: ACETAMINOPHEN 325 MG TABLET. PO PRN ×2 (10:44→20:18)
--- NOTE | 2018-11-13 11:47 | NUR ---
SS following up with discharge planning. Pt is from [facility], ; fax [phone], and is currently on room air. Pt able to return to [facility] when medically stable for discharge. SS will await discharge orders for return and will proceed accordingly.
--- NOTE | 2018-11-13 13:53 | PDOC ---
JACKELIN SALAS [employer] SYSTEM[employer] PROGRAMMER 11/13/18 1353: CARDIO Progress Notes Date and Time Date of Service 11/13/18 Time of Evaluation 1310 Subjective Subjective: No Chest Pain, No shortness of breath, No Dizziness Vitals Vitals Vital Signs Date Time Temp Pulse Resp B/P (MAP) Pulse Ox O2 Delivery O2 Flow Rate FiO2 11/13/18 10:37 97.5 83 17 131/69 (89) 94 Room Air 97.5 Weight Weight [ ] Input and Output Intake and Output Intake and Output 11/13/18 07:00 Intake Total 1030 ml Output Total 950 ml Balance 80 ml Intake Oral 980 ml IV Total 50 ml Output Urine Total 950 ml # Voids 4 # Bowel Movements 1 Laboratory Labs Laboratory Tests Test 11/12/18 16:36 11/12/18 20:45 11/13/18 05:25 11/13/18 07:11 Glucose (Fingerstick) 261 mg/dL (70-99) 247 mg/dL (70-99) 218 mg/dL (70-99) Sodium Level 139 mmol/L (136-145) Potassium Level 3.5 mmol/L (3.5-5.1) Chloride Level 104 mmol/L (98-107) Carbon Dioxide Level 25 mmol/L (21-32) Anion Gap 10 (6-14) Blood Urea Nitrogen 10 mg/dL (8-26) Creatinine 0.6 mg/dL (0.7-1.3) Estimated GFR (Cockcroft-Gault) 131.0 Glucose Level 259 mg/dL (70-99) Calcium Level 8.5 mg/dL (8.5-10.1) Test 11/13/18 11:02 11/13/18 13:12 Glucose (Fingerstick) 247 mg/dL (70-99) 212 mg/dL (70-99) Microbiology Micro Microbiology 11/12/18 Blood Culture - Preliminary, Resulted NO GROWTH AFTER 1 DAY 11/09/18 Urine Culture - Final, Complete 11/09/18 Urine Culture Result 1 (GALEN) - Final, Complete 11/09/18 Antimicrobic Susceptibility - Final, Complete Physical Exam HEENT: Neck Supple W Full Motion Chest: Symmetric LUNGS: Clear to Auscultation Heart: S1S2, RRR Abdomen: Soft N/T Extremities: Other (left side hemiparesis)) Neurology: alert, oriented, follow commands Assessment Assessment 1. 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 Patient continues to have bradyarrhythmias on telemetry. 2-D echo showed normal LV systolic function. He is not on any rate lowering medications. Will PPM for SSS; once cleared from ID standpoint. 2. UTI with sepsis: urine with E. Coli. BC ID pending. Continue antibiotics per ID team 3. Metabolic encephalopathy: Improved 4. HTN: controlled 5. DM2/HLP: Per IM 6. Chronic diastolic CHF: appears compensated. Recommendations Await initial BC ID and repeat blood culture result- no growth p 1 day. D/w ID. If remains negative, proceed with PPM. Possibly tomorrow or Tuesday NPO p [place] Supportive care LATANYA GUTIERREZ MD 11/14/18 0701: CARDIO Progress Notes Assessment Assessment Patient seen and examined 11/13/18. Agree with PRECAST MOLDER's assessment and plan. Patient continues to have severe bradycardia, high-grade second-degree AV block and pauses on telemetry Plan for permanent pacemaker implantation when cleared from ID standpoint JACKELIN SALAS APRN November 13, 2018 13:53 LATANYA GUTIERREZ MD November 14, 2018 07:01
[2018-11-13 14:46] VITALS: BP 119/65
[2018-11-13] MEDS: ENOXAPARIN 40 MG/0.4 ML SYRINGE. SQ SCH ×2 (16:00→17:28)
--- NOTE | 2018-11-13 17:48 | NUR ---
Lovenox dose held for possible pacemaker insertion tomorrow 11/14.
[2018-11-13 19:17] VITALS: BP 143/73
--- NOTE | 2018-11-13 19:39 | PDOC ---
PROGRESS NOTES Subjective Subjective Patient feeling better. 2nd Blood clx neg thus far. Plan on PPM tomorrow or wed. few pauses noted on tele w/o symptoms. Objective Objective Vital Signs Date Time Temp Pulse Resp B/P (MAP) Pulse Ox O2 Delivery O2 Flow Rate FiO2 11/13/18 19:17 98.1 85 17 143/73 (96) 95 Room Air 98.1 Intake and Output 11/13/18 06:59 Intake Total 1030 ml Output Total 950 ml Balance 80 ml Intake Oral 980 ml IV Total 50 ml Output Urine Total 950 ml # Voids 4 # Bowel Movements 1 Physical Exam Abdomen: Normal bowel sounds Heart: No murmurs Extremities: No edema General: Alert Lungs: Clear to auscultation Assessment Assessment Problems Medical Problems: (1) Acute metabolic encephalopathy Status: Acute (2) CVA, old, hemiparesis Status: Acute (3) Hyperglycemia Status: Acute (4) Sepsis Status: Acute (5) UTI (urinary tract infection) Status: Acute 1. Sepsis with UTI 2. 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 Newly Dx - DM2 4. HTN Plan Plan of Care Continue IV antibx and supportive care. PPM when stable and clx neg. Start PT/OT eval and treat Comment Review of Relevant I have reviewed the following items evin (where applicable) has been applied. Labs Laboratory Tests Test 11/11/18 20:20 11/12/18 08:00 11/12/18 11:45 11/12/18 16:36 Glucose (Fingerstick) 269 mg/dL (70-99) 203 mg/dL (70-99) 247 mg/dL (70-99) 261 mg/dL (70-99) Test 11/12/18 20:45 11/13/18 05:25 11/13/18 07:11 11/13/18 11:02 Glucose (Fingerstick) 247 mg/dL (70-99) 218 mg/dL (70-99) 247 mg/dL (70-99) Sodium Level 139 mmol/L (136-145) Potassium Level 3.5 mmol/L (3.5-5.1) Chloride Level 104 mmol/L (98-107) Carbon Dioxide Level 25 mmol/L (21-32) Anion Gap 10 (6-14) Blood Urea Nitrogen 10 mg/dL (8-26) Creatinine 0.6 mg/dL (0.7-1.3) Estimated GFR (Cockcroft-Gault) 131.0 Glucose Level 259 mg/dL (70-99) Calcium Level 8.5 mg/dL (8.5-10.1) Test 11/13/18 13:12 11/13/18 16:25 Glucose (Fingerstick) 212 mg/dL (70-99) 235 mg/dL (70-99) Laboratory Tests Test 11/12/18 20:45 11/13/18 05:25 11/13/18 07:11 11/13/18 11:02 Glucose (Fingerstick) 247 mg/dL (70-99) 218 mg/dL (70-99) 247 mg/dL (70-99) Sodium Level 139 mmol/L (136-145) Potassium Level 3.5 mmol/L (3.5-5.1) Chloride Level 104 mmol/L (98-107) Carbon Dioxide Level 25 mmol/L (21-32) Anion Gap 10 (6-14) Blood Urea Nitrogen 10 mg/dL (8-26) Creatinine 0.6 mg/dL (0.7-1.3) Estimated GFR (Cockcroft-Gault) 131.0 Glucose Level 259 mg/dL (70-99) Calcium Level 8.5 mg/dL (8.5-10.1) Test 11/13/18 13:12 11/13/18 16:25 Glucose (Fingerstick) 212 mg/dL (70-99) 235 mg/dL (70-99) Microbiology 11/12/18 Blood Culture - Preliminary, Resulted NO GROWTH AFTER 1 DAY 11/09/18 Urine Culture - Final, Complete 11/09/18 Urine Culture Result 1 (GALEN) - Final, Complete 11/09/18 Antimicrobic Susceptibility - Final, Complete Medications Current Medications Sodium Chloride 1,000 ml @ 1,000 mls/hr 1X ONCE IV Last administered on 11/09/18at 19:09; Start 11/09/18 at 18:45; Stop 11/09/18 at 19:44; Status DC Iohexol (Omnipaque 350 Mg/ml) 75 ml 1X ONCE IV ; Start 11/09/18 at 19:00; Stop 11/09/18 at 19:01; Status DC Info (CONTRAST GIVEN -- Rx MONITORING) 1 each PRN DAILY PRN MC SEE COMMENTS; Start 11/09/18 at 19:00; Stop 11/11/18 at 18:59; Status DC Acetaminophen (Tylenol) 1,000 mg 1X ONCE PO Last administered on 11/09/18at 19:14; Start 11/09/18 at 19:15; Stop 11/09/18 at 19:16; Status DC Sodium Chloride 1,000 ml @ 1,000 mls/hr 1X ONCE IV Last administered on 11/09/18at 19:50; Start 11/09/18 at 19:45; Stop 11/09/18 at 20:44; Status DC Ceftriaxone Sodium (Rocephin) 1 gm 1X ONCE IVP Last administered on 11/09/18at 20:37; Start 11/09/18 at 20:30; Stop 11/09/18 at 20:36; Status DC Ondansetron HCl (Zofran) 4 mg PRN Q8HRS PRN IV NAUSEA/VOMITING; Start 11/09/18 at 20:45; Stop 11/10/18 at 09:10; Status DC Sodium Chloride 1,000 ml @ 125 mls/hr Q8H IV Last administered on 11/09/18at 22:05; Start 11/09/18 at 20:41; Stop 11/10/18 at 20:40; Status DC Acetaminophen (Tylenol) 650 mg PRN Q4HRS PRN PO FEVER; Start 11/09/18 at 20:45; Stop 11/10/18 at 08:29; Status DC Ceftriaxone Sodium (Rocephin) 1 gm Q24H IVP ; Start 11/10/18 at 21:00; Stop 11/10/18 at 21:00; Status DC Insulin Human Lispro (HumaLOG) 0-7 UNITS TIDWMEALS SQ Last administered on 11/13/18at 17:32; Start 11/10/18 at 08:30 Dextrose (Dextrose 50%-Water Syringe) 12.5 gm PRN Q15MIN PRN IV SEE COMMENTS; Start 11/10/18 at 08:30 Acetaminophen (Tylenol) 325 mg PRN Q4HRS PRN PO MILD PAIN / TEMP Last administered on 11/13/18at 10:44; Start 11/10/18 at 08:30 Amlodipine Besylate (Norvasc) 5 mg DAILY PO Last administered on 11/13/18 08:42; Start 11/10/18 at 09:00 Aspirin (Children'S Aspirin) 81 mg DAILY PO Last administered on 11/13/18 08:41; Start 11/10/18 at 09:00 Atorvastatin Calcium (Lipitor) 20 mg DAILY PO Last administered on 11/13/18 08:41; Start 11/10/18 at 09:00 Citalopram Hydrobromide (CeleXA) 10 mg DAILY PO ; Start 11/10/18 at 09:00; Stop 11/10/18 at 09:10; Status DC Diclofenac Sodium (Voltaren) 2 mainor QID TP Last administered on 11/12/18 12:34; Start 11/10/18 at 09:00; Stop 11/12/18 at 12:44; Status DC Finasteride (Proscar) 5 mg DAILY PO Last administered on 11/13/18 08:41; Start 11/10/18 at 09:00 Gabapentin (Neurontin) 300 mg PRN QHS PRN PO NEUROPATHIC PAIN Last administered on 11/12/18 20:27; Start 11/10/18 at 08:30 Levetiracetam (Keppra) 1,000 mg BID PO Last administered on 11/13/18 08:41; Start 11/10/18 at 09:00 Tamsulosin HCl (Flomax) 0.4 mg DAILY PO Last administered on 11/13/18 08:41; Start 11/10/18 at 09:00 Cetirizine HCl (ZyrTEC) 10 mg DAILY PO Last administered on 11/13/18 08:41; Start 11/10/18 at 09:00 Multivitamins (Thera M Plus) 1 tab DAILY PO Last administered on 11/13/18 08:41; Start 11/10/18 at 09:00 Nystatin (Mycostatin) 1 mainor PRN BID PRN TP REDNESS Last administered on 11/11/18 08:50; Start 11/10/18 at 09:00 Polyethylene Glycol (miraLAX PACKET) 17 gm DAILY PO Last administered on 11/13/18 08:42; Start 11/10/18 at 09:00 Furosemide (Lasix) 20 mg 1X ONCE IVP Last administered on 11/10/18 09:57; Start 11/10/18 at 09:30; Stop 11/10/18 at 09:31; Status DC Piperacillin Sod/ Tazobactam Sod 3.375 gm/Sodium Chloride 50 ml @ 100 mls/hr Q6HRS IV Last administered on 11/13/18 17:28; Start 11/10/18 at 12:30 Enoxaparin Sodium (Lovenox 40mg Syringe) 40 mg Q24H SQ Last administered on 11/12/18at 17:49; Start 11/10/18 at 16:00 Metformin HCl (Glucophage Xr) 500 mg DAILYWBKFT PO Last administered on 11/13/18 08:41; Start 11/12/18 at 08:00 Insulin Glargine (Lantus) 10 units QHS SQ Last administered on 11/11/18at 20:24; Start 11/11/18 at 21:00; Stop 11/12/18 at 10:59; Status DC Lactobacillus Rhamnosus (Culturelle) 1 cap BID PO Last administered on 11/13/18at 08:41; Start 11/11/18 at 21:00 Insulin Glargine (Lantus) 16 units QHS SQ Last administered on 11/12/18at 21:48; Start 11/12/18 at 21:00 Diclofenac Sodium (Voltaren) 2 mainor PRN QID PRN TP SHOULDER PAIN Last administered on 11/12/18 20:27; Start 11/12/18 at 12:45 Active Scripts Active Reported Tylenol (Acetaminophen) 325 Mg Tablet 325 Mg PO PRN Q4HRS PRN Aspirin 81 Mg Tab.chew 1 Tab PO DAILY Levetiracetam 500 Mg Tablet 1,000 Mg PO BID Miralax (Polyethylene Glycol 3350) 17 Gm Powd.pack 1 Packet PO DAILY Flomax (Tamsulosin Hcl) 0.4 Mg Cap.er.24h 1 Cap PO DAILY Multivitamins (Multivitamin) 1 Each Tablet 1 Tab PO DAILY Norvasc (Amlodipine Besylate) 5 Mg Tablet 1 Tab PO DAILY Atorvastatin Calcium 20 Mg Tablet 1 Tab PO DAILY Gabapentin 300 Mg Capsule 300 Mg PO PRN QHS PRN Proscar (Finasteride) 5 Mg Tablet 1 Tab PO DAILY Voltaren (Diclofenac Sodium) 100 Gm Gel..gram. 2 Gm TP QID Claritin (Loratadine) 10 Mg Tablet 1 Tab PO DAILY Citalopram Hbr (Citalopram Hydrobromide) 10 Mg Tablet 1 Tab PO DAILY Robitussin Cough-Chest Dm Liq (Guaifenesin/Dextromethorphan) 237 Ml Liquid 10 Ml PO PRN Q4HRS PRN Nystatin 15 Gm Cream..g. 1 Mainor TP PRN BID PRN Vitals/I & O Vital Sign - Last 24 Hours 11/12/18 11/13/18 11/13/18 11/13/18 23:05 03:27 07:24 08:00 Temp 98.1 97.7 97.6 98.1 97.7 97.6 Pulse 79 77 79 Resp 18 17 17 B/P (MAP) 136/75 (95) 117/60 (79) 124/75 (91) Pulse Ox 96 95 94 O2 Delivery Room Air Room Air Room Air Room Air 11/13/18 11/13/18 11/13/18 11/13/18 08:42 10:37 14:46 19:17 Temp 97.5 98.2 98.1 97.5 98.2 98.1 Pulse 79 83 83 85 Resp 17 17 17 B/P (MAP) 124/75 131/69 (89) 119/65 (83) 143/73 (96) Pulse Ox 94 94 95 O2 Delivery Room Air Room Air Room Air Intake and Output 11/12/18 11/12/18 11/13/18 14:59 22:59 06:59 Intake Total 200 ml 540 ml 290 ml Output Total 650 ml 300 ml Balance 200 ml -110 ml -10 ml GERMAN HE MD November 13, 2018 19:39
[2018-11-13] MEDS: GABAPENTIN 300 MG CAPSULE. PO PRN (20:18)
[2018-11-13] MEDS: DICLOFENAC SODIUM 1% TOPICAL GEL 100GM TUBE. TP PRN (20:19)
[2018-11-13] MEDS: INSULIN GLARGINE 300 UNITS/3 ML INSULN.PEN. SQ SCH (21:12)
[2018-11-13 22:36] VITALS: BP 153/85
[2018-11-14] MEDS: PIPERACILLIN/TAZOBACTAM 3.375 GM in IV NORMAL SALINE 50ML 50 ML IV SCH ×2 (00:45→05:35)
[2018-11-14 02:22] VITALS: BP 137/74
--- NOTE | 2018-11-14 03:47 | NUR ---
Patient on the telemonitor had bradycardia with pauses and cardiology aware and continue plan of care.
[2018-11-14 07:38] VITALS: BP 119/72
[2018-11-14] MEDS: INSULIN LISPRO 300 UNITS/3 ML INSULN.PEN. SQ SCH ×3 (08:00→18:15)
--- NOTE | 2018-11-14 08:46 | PDOC ---
Infectious Disease Note Subjective Subjective Comfortable + sinus pauses No fevers last 24 hours ROS ROS no n/v/d/fever Vital Sign Vital Signs Vital Signs Date Time Temp Pulse Resp B/P (MAP) Pulse Ox O2 Delivery O2 Flow Rate FiO2 11/14/18 08:04 Room Air 11/14/18 07:38 98.0 76 17 119/72 (88) 93 98.0 Physical Exam PHYSICAL EXAM GENERAL: Lying down, awake, NAD HEENT: Pupils are status post cataract surgery with normal conjunctivae. Oral cavity, pharynx is clear, there is some questionable dentition. NECK: Supple, without JVD. LUNGS: Decreased in the bases. HEART: S1, S2. ABDOMEN: Soft, nontender, no guarding or rebound. EXTREMITIES: No clubbing or cyanosis. No gross edema. SKIN: Warm to touch without signs of rash. NEUROLOGIC: Alert, answers questions appropriately. PIV Labs Lab Laboratory Tests Test 11/13/18 11:02 11/13/18 13:12 11/13/18 16:25 11/13/18 21:08 Glucose (Fingerstick) 247 mg/dL (70-99) 212 mg/dL (70-99) 235 mg/dL (70-99) 223 mg/dL (70-99) Test 11/14/18 06:59 Glucose (Fingerstick) 199 mg/dL (70-99) Micro BC g neg wilmer, E coli repeat neg urine with e coli Objective Assessment Sepsis with GNR bacteremia (POA), 11/09/2018. E coli Leukocytosis, better Urinary tract infection, (POA), 11/09/2018. UC E. coli Bradycardia with sinus pauses. Plan Plan of Care change zosyn to rocephine repeat bc neg ok to proceed with pacemaker placement d/w Dr Hernandez d/w RN ROBBY KEEN MD November 14, 2018 08:46
[2018-11-14] MEDS: LACTOBACILLUS RHAMNOSUS GG 1 CAPSULE. PO SCH ×2 (09:00→20:18)
[2018-11-14] MEDS: POLYETHYLENE GLYCOL 3350 17 GM PACKET. PO SCH (09:00)
[2018-11-14 10:45] VITALS: BP 142/76
--- NOTE | 2018-11-14 13:12 | PDOC ---
PROGRESS NOTES Subjective Subjective Patient doing well. Clear by ID for pacemaker. Objective Objective Vital Signs Date Time Temp Pulse Resp B/P (MAP) Pulse Ox O2 Delivery O2 Flow Rate FiO2 11/14/18 10:45 98.4 75 17 142/76 (98) 95 Room Air 98.4 Intake and Output 11/14/18 06:59 Intake Total 820 ml Output Total 400 ml Balance 420 ml Intake Oral 620 ml IV Total 200 ml Output Urine Total 400 ml # Voids 3 # Bowel Movements 2 Physical Exam Abdomen: Normal bowel sounds Heart: Regular rate Extremities: No edema General: Alert Lungs: Clear to auscultation Assessment Assessment Problems Medical Problems: (1) Acute metabolic encephalopathy Status: Acute (2) CVA, old, hemiparesis Status: Acute (3) Hyperglycemia Status: Acute (4) Sepsis Status: Acute (5) UTI (urinary tract infection) Status: Acute 1. Sepsis with UTI 2. 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 Newly Dx - DM2 4. HTN 5. Late effects CVA Plan Plan of Care Continue IV antibx and supportive care. PPM today or in am. Start PT/OT eval and treat back to [facility] when stable Comment Review of Relevant I have reviewed the following items evin (where applicable) has been applied. Labs Laboratory Tests Test 11/12/18 16:36 11/12/18 20:45 11/13/18 05:25 11/13/18 07:11 Glucose (Fingerstick) 261 mg/dL (70-99) 247 mg/dL (70-99) 218 mg/dL (70-99) Sodium Level 139 mmol/L (136-145) Potassium Level 3.5 mmol/L (3.5-5.1) Chloride Level 104 mmol/L (98-107) Carbon Dioxide Level 25 mmol/L (21-32) Anion Gap 10 (6-14) Blood Urea Nitrogen 10 mg/dL (8-26) Creatinine 0.6 mg/dL (0.7-1.3) Estimated GFR (Cockcroft-Gault) 131.0 Glucose Level 259 mg/dL (70-99) Calcium Level 8.5 mg/dL (8.5-10.1) Test 11/13/18 11:02 11/13/18 13:12 11/13/18 16:25 11/13/18 21:08 Glucose (Fingerstick) 247 mg/dL (70-99) 212 mg/dL (70-99) 235 mg/dL (70-99) 223 mg/dL (70-99) Test 11/14/18 06:59 11/14/18 11:52 Glucose (Fingerstick) 199 mg/dL (70-99) 163 mg/dL (70-99) Laboratory Tests Test 11/13/18 13:12 11/13/18 16:25 11/13/18 21:08 11/14/18 06:59 Glucose (Fingerstick) 212 mg/dL (70-99) 235 mg/dL (70-99) 223 mg/dL (70-99) 199 mg/dL (70-99) Test 11/14/18 11:52 Glucose (Fingerstick) 163 mg/dL (70-99) Microbiology 11/12/18 Blood Culture - Preliminary, Resulted NO GROWTH AFTER 2 DAYS 11/09/18 Urine Culture - Final, Complete 11/09/18 Urine Culture Result 1 (GALEN) - Final, Complete 11/09/18 Antimicrobic Susceptibility - Final, Complete Medications Current Medications Sodium Chloride 1,000 ml @ 1,000 mls/hr 1X ONCE IV Last administered on 11/09/18at 19:09; Start 11/09/18 at 18:45; Stop 11/09/18 at 19:44; Status DC Iohexol (Omnipaque 350 Mg/ml) 75 ml 1X ONCE IV ; Start 11/09/18 at 19:00; Stop 11/09/18 at 19:01; Status DC Info (CONTRAST GIVEN -- Rx MONITORING) 1 each PRN DAILY PRN MC SEE COMMENTS; Start 11/09/18 at 19:00; Stop 11/11/18 at 18:59; Status DC Acetaminophen (Tylenol) 1,000 mg 1X ONCE PO Last administered on 11/09/18at 19:14; Start 11/09/18 at 19:15; Stop 11/09/18 at 19:16; Status DC Sodium Chloride 1,000 ml @ 1,000 mls/hr 1X ONCE IV Last administered on 11/09/18at 19:50; Start 11/09/18 at 19:45; Stop 11/09/18 at 20:44; Status DC Ceftriaxone Sodium (Rocephin) 1 gm 1X ONCE IVP Last administered on 11/09/18at 20:37; Start 11/09/18 at 20:30; Stop 11/09/18 at 20:36; Status DC Ondansetron HCl (Zofran) 4 mg PRN Q8HRS PRN IV NAUSEA/VOMITING; Start 11/09/18 at 20:45; Stop 11/10/18 at 09:10; Status DC Sodium Chloride 1,000 ml @ 125 mls/hr Q8H IV Last administered on 11/09/18at 22:05; Start 11/09/18 at 20:41; Stop 11/10/18 at 20:40; Status DC Acetaminophen (Tylenol) 650 mg PRN Q4HRS PRN PO FEVER; Start 11/09/18 at 20:45; Stop 11/10/18 at 08:29; Status DC Ceftriaxone Sodium (Rocephin) 1 gm Q24H IVP ; Start 11/10/18 at 21:00; Stop 11/10/18 at 21:00; Status DC Insulin Human Lispro (HumaLOG) 0-7 UNITS TIDWMEALS SQ Last administered on 11/13/18at 17:32; Start 11/10/18 at 08:30 Dextrose (Dextrose 50%-Water Syringe) 12.5 gm PRN Q15MIN PRN IV SEE COMMENTS; Start 11/10/18 at 08:30 Acetaminophen (Tylenol) 325 mg PRN Q4HRS PRN PO MILD PAIN / TEMP Last administered on 11/13/18at 20:18; Start 11/10/18 at 08:30 Amlodipine Besylate (Norvasc) 5 mg DAILY PO Last administered on 11/13/18at 08:42; Start 11/10/18 at 09:00 Aspirin (Children'S Aspirin) 81 mg DAILY PO Last administered on 11/13/18at 08:41; Start 11/10/18 at 09:00 Atorvastatin Calcium (Lipitor) 20 mg DAILY PO Last administered on 11/13/18at 08:41; Start 11/10/18 at 09:00 Citalopram Hydrobromide (CeleXA) 10 mg DAILY PO ; Start 11/10/18 at 09:00; Stop 11/10/18 at 09:10; Status DC Diclofenac Sodium (Voltaren) 2 mainor QID TP Last administered on 11/12/18 12:34; Start 11/10/18 at 09:00; Stop 11/12/18 at 12:44; Status DC Finasteride (Proscar) 5 mg DAILY PO Last administered on 11/13/18 08:41; Start 11/10/18 at 09:00 Gabapentin (Neurontin) 300 mg PRN QHS PRN PO NEUROPATHIC PAIN Last administered on 11/13/18 20:18; Start 11/10/18 at 08:30 Levetiracetam (Keppra) 1,000 mg BID PO Last administered on 11/13/18 20:18; Start 11/10/18 at 09:00 Tamsulosin HCl (Flomax) 0.4 mg DAILY PO Last administered on 11/13/18 08:41; Start 11/10/18 at 09:00 Cetirizine HCl (ZyrTEC) 10 mg DAILY PO Last administered on 11/13/18 08:41; Start 11/10/18 at 09:00 Multivitamins (Thera M Plus) 1 tab DAILY PO Last administered on 11/13/18 08:41; Start 11/10/18 at 09:00 Nystatin (Mycostatin) 1 mainor PRN BID PRN TP REDNESS Last administered on 11/11/18 08:50; Start 11/10/18 at 09:00 Polyethylene Glycol (miraLAX PACKET) 17 gm DAILY PO Last administered on 11/13/18 08:42; Start 11/10/18 at 09:00 Furosemide (Lasix) 20 mg 1X ONCE IVP Last administered on 11/10/18at 09:57; Start 11/10/18 at 09:30; Stop 11/10/18 at 09:31; Status DC Piperacillin Sod/ Tazobactam Sod 3.375 gm/Sodium Chloride 50 ml @ 100 mls/hr Q6HRS IV Last administered on 11/14/18at 05:35; Start 11/10/18 at 12:30; Stop 11/14/18 at 08:42; Status DC Enoxaparin Sodium (Lovenox 40mg Syringe) 40 mg Q24H SQ Last administered on 11/12/18at 17:49; Start 11/10/18 at 16:00 Metformin HCl (Glucophage Xr) 500 mg DAILYWBKFT PO Last administered on 11/13/18at 08:41; Start 11/12/18 at 08:00 Insulin Glargine (Lantus) 10 units QHS SQ Last administered on 11/11/18at 20:24; Start 11/11/18 at 21:00; Stop 11/12/18 at 10:59; Status DC Lactobacillus Rhamnosus (Culturelle) 1 cap BID PO Last administered on 11/13/18at 20:18; Start 11/11/18 at 21:00 Insulin Glargine (Lantus) 16 units QHS SQ Last administered on 11/13/18at 21:12; Start 11/12/18 at 21:00 Diclofenac Sodium (Voltaren) 2 mainor PRN QID PRN TP SHOULDER PAIN Last administered on 11/13/18at 20:19; Start 11/12/18 at 12:45 Ceftriaxone Sodium (Rocephin) 2 gm Q24H IVP ; Start 11/14/18 at 09:00 Active Scripts Active Reported Tylenol (Acetaminophen) 325 Mg Tablet 325 Mg PO PRN Q4HRS PRN Aspirin 81 Mg Tab.chew 1 Tab PO DAILY Levetiracetam 500 Mg Tablet 1,000 Mg PO BID Miralax (Polyethylene Glycol 3350) 17 Gm Powd.pack 1 Packet PO DAILY Flomax (Tamsulosin Hcl) 0.4 Mg Cap.er.24h 1 Cap PO DAILY Multivitamins (Multivitamin) 1 Each Tablet 1 Tab PO DAILY Norvasc (Amlodipine Besylate) 5 Mg Tablet 1 Tab PO DAILY Atorvastatin Calcium 20 Mg Tablet 1 Tab PO DAILY Gabapentin 300 Mg Capsule 300 Mg PO PRN QHS PRN Proscar (Finasteride) 5 Mg Tablet 1 Tab PO DAILY Voltaren (Diclofenac Sodium) 100 Gm Gel..gram. 2 Gm TP QID Claritin (Loratadine) 10 Mg Tablet 1 Tab PO DAILY Citalopram Hbr (Citalopram Hydrobromide) 10 Mg Tablet 1 Tab PO DAILY Robitussin Cough-Chest Dm Liq (Guaifenesin/Dextromethorphan) 237 Ml Liquid 10 Ml PO PRN Q4HRS PRN Nystatin 15 Gm Cream..g. 1 Mainor TP PRN BID PRN Vitals/I & O Vital Sign - Last 24 Hours 11/13/18 11/13/18 11/13/1820/19 14:46 19:17 19:37 22:36 Temp 98.2 98.1 98.3 98.2 98.1 98.3 Pulse 83 85 83 Resp B/P (MAP) 119/65 (83) 143/73 (96) 153/85 (107) Pulse Ox 94 95 96 O2 Delivery Room Air Room Air Room Air Room Air 11/14/18 11/14/18 11/14/18 11/14/18 02:22 07:38 08:04 10:45 Temp 97.9 98.0 98.4 97.9 98.0 98.4 Pulse 77 76 75 Resp B/P (MAP) 137/74 (95) 119/72 (88) 142/76 (98) Pulse Ox 93 93 95 O2 Delivery Room Air Room Air Room Air Room Air Intake and Output 11/13/18 11/13/18 11/14/18 14:59 22:59 06:59 Intake Total 50 ml 550 ml 220 ml Output Total 400 ml Balance 50 ml 550 ml -180 ml GERMAN HE MD November 14, 2018 13:12
[2018-11-14] MEDS: CETIRIZINE HCL 10 MG TABLET. PO SCH (14:23)
[2018-11-14] MEDS: MULTIVITAMIN with MINERAL TABLET. PO SCH (14:24)
[2018-11-14] MEDS: TAMSULOSIN 0.4 MG CAP.ER.24H. PO SCH (14:24)
[2018-11-14] MEDS: amLODIPine BESYLATE 5 MG TABLET PO SCH (14:24)
[2018-11-14] MEDS: metFORMIN XR 500 MG TAB.ER.24H PO SCH (14:24)
[2018-11-14] MEDS: ASPIRIN CHEWABLE 81 MG TABLET. PO SCH (14:24)
[2018-11-14] MEDS: levETIRAcetam 500 MG TABLET PO SCH ×2 (14:24→20:18)
[2018-11-14] MEDS: ATORVASTATIN CALCIUM 20 MG TABLET PO SCH (14:24)
[2018-11-14] MEDS: FINASTERIDE 5 MG TABLET. PO SCH (14:24)
[2018-11-14] MEDS: cefTRIAXone IV Push 2 GM VIAL. IVP SCH (14:25)
--- NOTE | 2018-11-14 14:33 | PDOC ---
KINGSTON SAVAGE [employer] 11/14/18 1433: CARDIO Progress Notes Date and Time Date of Service 11/14/2018 Time of Evaluation 1420 Subjective Subjective: No Chest Pain, No shortness of breath, No Palpitations Vitals Vitals Vital Signs Date Time Temp Pulse Resp B/P (MAP) Pulse Ox O2 Delivery O2 Flow Rate FiO2 11/14/18 14:24 75 142/76 11/14/18 10:45 98.4 17 95 Room Air 98.4 Weight Weight [ ] Input and Output Intake and Output Intake and Output 11/14/18 06:59 Intake Total 820 ml Output Total 400 ml Balance 420 ml Intake Oral 620 ml IV Total 200 ml Output Urine Total 400 ml # Voids 3 # Bowel Movements 2 Laboratory Labs Laboratory Tests Test 11/13/18 16:25 11/13/18 21:08 11/14/18 06:59 11/14/18 11:52 Glucose (Fingerstick) 235 mg/dL (70-99) 223 mg/dL (70-99) 199 mg/dL (70-99) 163 mg/dL (70-99) Microbiology Micro Microbiology 11/12/18 Blood Culture - Preliminary, Resulted NO GROWTH AFTER 2 DAYS 11/09/18 Urine Culture - Final, Complete 11/09/18 Urine Culture Result 1 (GALEN) - Final, Complete 11/09/18 Antimicrobic Susceptibility - Final, Complete Physical Exam HEENT: Neck Supple W Full Motion Chest: Symmetric LUNGS: Clear to Auscultation Heart: S1S2, RRR Abdomen: Soft N/T Extremities: Other (left side hemiparesis)) Neurology: alert, oriented, follow commands Assessment Assessment 1. SSS: notable for periods of asystole and type second degree AV block. EF and WM nml 2. UTI with sepsis: improved 3. Metabolic encephalopathy: Improved 4. HTN: controlled 5. DM2/HLP: Per IM 6. Chronic diastolic CHF: appears compensated. Recommendations 1. Antibiotics per ID. Discussed with ID, clear for PPM tomorrow 2. PPM tomorrow at 1130 3. further med changes once PPM is placed. Continue with secondary prevention measures. LATANYA GUTIERREZ MD 11/14/181: CARDIO Progress Notes Assessment Assessment Patient seen and examined. Agree with DERMATOLOGY PHYSICIAN ASSISTANT's assessment and plan. Agree with PPM implantation tomorrow Continue abx per ID team KINGSTON SAVAGE APRN November 14, 2018 14:33 LATANYA GUTIERREZ MD November 14, 2018 21:08
[2018-11-14 14:43] VITALS: BP 146/84
[2018-11-14] MEDS: ENOXAPARIN 40 MG/0.4 ML SYRINGE. SQ SCH (18:10)
[2018-11-14 19:45] VITALS: BP 119/70
[2018-11-14] MEDS: ACETAMINOPHEN 325 MG TABLET. PO PRN (20:17)
[2018-11-14] MEDS: INSULIN GLARGINE 300 UNITS/3 ML INSULN.PEN. SQ SCH (20:27)
[2018-11-14 22:22] VITALS: BP 122/64
[2018-11-15] VITALS (11 sets, daily range): BP systolic 84–133; BP diastolic 52–84
--- NOTE | 2018-11-15 05:29 | PDOC ---
Infectious Disease Note Subjective Subjective Comfortable + sinus pauses No fevers last 24 hours ROS ROS no n/v/d/ Vital Sign Vital Signs Vital Signs Date Time Temp Pulse Resp B/P (MAP) Pulse Ox O2 Delivery O2 Flow Rate FiO2 11/15/18 02:12 97.5 77 16 97/59 (72) 98 Room Air 97.5 Physical Exam PHYSICAL EXAM GENERAL: Lying down, awake, NAD HEENT: Pupils are status post cataract surgery with normal conjunctivae. Oral cavity, pharynx is clear, there is some questionable dentition. NECK: Supple, without JVD. LUNGS: Decreased in the bases. HEART: S1, S2. ABDOMEN: Soft, nontender, no guarding or rebound. EXTREMITIES: No clubbing or cyanosis. No gross edema. SKIN: Warm to touch without signs of rash. NEUROLOGIC: Alert, answers questions appropriately. PIV Labs Lab Laboratory Tests Test 11/14/18 06:59 11/14/18 11:52 11/14/18 16:39 11/14/18 20:19 Glucose (Fingerstick) 199 mg/dL (70-99) 163 mg/dL (70-99) 217 mg/dL (70-99) 184 mg/dL (70-99) Test 11/14/18 21:33 Glucose (Fingerstick) 186 mg/dL (70-99) Micro BC g neg wilmer, E coli repeat neg urine with e coli Objective Assessment Sepsis with GNR bacteremia (POA), 11/09/2018. E coli Leukocytosis, better Urinary tract infection, (POA), 11/09/2018. UC E. coli Bradycardia with sinus pauses. Plan Plan of Care rocephine repeat bc neg pacemaker today d/w ROBBY DELEON MD November 15, 2018 05:29
[2018-11-15] MEDS: INSULIN LISPRO 300 UNITS/3 ML INSULN.PEN. SQ SCH ×3 (07:40→17:47)
[2018-11-15] MEDS: metFORMIN XR 500 MG TAB.ER.24H PO SCH (07:40)
[2018-11-15] MEDS: LACTOBACILLUS RHAMNOSUS GG 1 CAPSULE. PO SCH ×2 (07:41→21:22)
[2018-11-15] MEDS: ASPIRIN CHEWABLE 81 MG TABLET. PO SCH (08:23)
[2018-11-15] MEDS: levETIRAcetam 500 MG TABLET PO SCH ×2 (08:23→21:22)
[2018-11-15] MEDS: cefTRIAXone IV Push 2 GM VIAL. IVP SCH (08:23)
[2018-11-15] MEDS: amLODIPine BESYLATE 5 MG TABLET PO SCH (08:24)
[2018-11-15] MEDS: POLYETHYLENE GLYCOL 3350 17 GM PACKET. PO SCH (09:00)
[2018-11-15] MEDS ORDERED: BACITRACIN 50,000 UNIT in IV NORMAL SALINE 250ML 250 ML IRR ONE (11:00)
[2018-11-15 11:20] LABS: PROTHROMBIN TIME PATIENT 13.7 SEC (11.7-14.0)
--- NOTE | 2018-11-15 11:27 | NUR ---
Nursing: Patient signed consent for pacemaker and anaesthesia. at bedside.
[2018-11-15] MEDS ORDERED: LIDOCAINE 2%/EPI 1:100,000 20 ML VIAL. ONE (11:35)
[2018-11-15] MEDS ORDERED: MIDAZOLAM HCL/PF 5 MG/5 ML VIAL. ONE (11:36)
[2018-11-15] MEDS ORDERED: fentaNYL PF VIAL 250 MCG/5 ML VIAL ONE (11:37)
[2018-11-15] MEDS ORDERED: MIDAZOLAM HCL/PF 5 MG/5 ML VIAL. IV ONE (12:00)
[2018-11-15] MEDS ORDERED: LIDOCAINE 2%/EPI 1:100,000 20 ML VIAL. IJ ONE (12:00)
[2018-11-15] MEDS ORDERED: fentaNYL PF VIAL 250 MCG/5 ML VIAL IV ONE (12:00)
--- NOTE | 2018-11-15 12:27 | NUR ---
SS following up with discharge planning. SS phoned and faxed clinical updates to [facility], ; fax [phone].
--- NOTE | 2018-11-15 13:09 | PDOC ---
MODERATE SEDATION ASSESSMENT RISKS/ALTERNATIVES Risks/Alternatives Risks and alternatives of this type of sedation and procedure discussed with: RISK/ALTERNATIVES: Patient H & P ON CHART H & P H & P on chart and reviewed for co-morbid conditions and appropriate labs. H&P ON CHART: Yes STATUS PREG STATUS ASSESSED: N/A MEDS/ALLERGIES REVIEWED Meds/Allergies Reviewed Medications and Allergies including time and route of recently administered narcotics and sedatives. MEDS/ALLERGIES REVIEWED: Yes ASA RATING ASA RATING: III AIRWAY ASSESSMENT Airway Assessment Airway patency, oral function limitations, presence of caps, crowns, dentures, partials, and ability to extend neck assessed. AIRWAY ASSESSMENT: Yes MALLAMPATI SCORE MALLAMPATI SCORE: II PRE-SEDATION ASSESSMENT PRE-SEDATION ASSESSMENT: Yes LATANYA GUTIERREZ MD November 15, 2018 13:09
[2018-11-15] MEDS ORDERED: NO ANTICOAGULANT THERAPY. MC PRN (13:15)
--- NOTE | 2018-11-15 13:15 | CARD ---
MR#: [id number] Date of Study: 11/15/2018 Ordering Physician: KINGSTON SAVAGE, Referring Physician: Hailey HENAO Tech: APPROVED REPORT PROCEDURES Successful implantation of [employer] 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 The patient was brought to the cardiac catheterization lab and the left chest and shoulder were prepp ed and draped in a sterile manner. 30 mL of 2% lidocaine was infiltrated into the skin and subcutaneous tissues for local anesthesia. An incision was made over the left infraclavicular fossa and using blunt dissection and cautery a pocke t was created. Venous access was obtained in the left subclavian vein and 8.5 and 7 Wolof sheaths in serted. A [employer] Kurt's bipolar active fixation right ventricular lead model 2088TC/52, serial number [id number] was advanced under fluoroscopy guidance and the tip was positioned in the right ventricle apex. Follo wing this, a [employer] Kurt's bipolar active fixation right atrial lead model 2088TC/46, serial number [id number] was advanced under fluoroscopy guidance and the tip was positioned in the right atrial appendag e. The leads were secured into place and attached to a [employer] Kurt's dual-chamber permanent pacemaker ge nerator model XD1944, serial number [id number]. This was placed in the pocket that was subsequently clos ed in 3 layers. Hemostasis was secured. At the end of procedure, the right ventricular lead showed a sensing amplitude of 9.1 mV, impedance o f 760 ohms and a threshold of 0.75 V. The right atrial lead showed a sensing amplitude of 4.5 mV, imp edance of 730 ohms and a threshold of 1.25 V. Patient tolerated the procedure well. There were no imm ediate complications. CONCLUSION Successful implantation of [employer] Kurt's dual-chamber permanent pacemaker for high-grade second-degree A V block and significant pauses. Signed by : Mykel Anthony, Electronically Approved : 11/15/2018 13:15:08
--- NOTE | 2018-11-15 13:38 | RAD ---
PORTABLE CHEST 1V Clinical Indication: Post pacemaker. Comparison: AP chest November 09, 2018. Findings: There is new left chest dual-chamber pacer. Atherosclerotic and tortuous thoracic aorta. Mild cardiomegaly. Stable mild elevation of right hemidiaphragm. There is minimal right basilar atelectasis or scarring. Lungs are otherwise clear. There is no pneumothorax. No pleural effusion is appreciated. Bones appear stable. IMPRESSION: Left chest dual-chamber pacer. No pneumothorax. Electronically signed by: Geo Boss MD (11/15/2018 1:35 PM) [id number]
--- NOTE | 2018-11-15 14:13 | PDOC ---
PROGRESS NOTES Subjective Subjective Patient seen immediately after pacemaker placed in left shoulder area. Patient doing well but slightly sedated. Blood pressure slightly low post procedure due to pain medications. Continuous monitoring in process and nurse aware. Objective Objective Vital Signs Date Time Temp Pulse Resp B/P (MAP) Pulse Ox O2 Delivery O2 Flow Rate FiO2 11/15/18 12:56 89 16 95 Nasal Cannula 4.0 11/15/18 11:00 98.0 129/75 (93) 98.0 Intake and Output 11/15/18 07:00 Intake Total 540 ml Output Total 600 ml Balance -60 ml Intake Oral 540 ml Output Urine Total 600 ml # Voids 3 # Bowel Movements 2 Physical Exam Abdomen: Normal bowel sounds Heart: Regular rate Extremities: No edema Lungs: Clear to auscultation Assessment Assessment Problems Medical Problems: (1) Acute metabolic encephalopathy Status: Acute (2) CVA, old, hemiparesis Status: Acute (3) Hyperglycemia Status: Acute (4) Sepsis Status: Acute (5) UTI (urinary tract infection) Status: Acute 1. Sepsis with UTI 2. 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 Newly Dx - DM2 4. HTN 5. Late effects CVA Plan Plan of Care Continue IV antibx and supportive care. PPM in place interrogation tomorrow. Start PT/OT eval and treat back to SNU when stable Comment Review of Relevant I have reviewed the following items evin (where applicable) has been applied. Labs Laboratory Tests Test 11/13/18 16:25 11/13/18 21:08 11/14/18 06:59 11/14/18 11:52 Glucose (Fingerstick) 235 mg/dL (70-99) 223 mg/dL (70-99) 199 mg/dL (70-99) 163 mg/dL (70-99) Test 11/14/18 16:39 11/14/18 20:19 11/14/18 21:33 11/15/18 08:01 Glucose (Fingerstick) 217 mg/dL (70-99) 184 mg/dL (70-99) 186 mg/dL (70-99) 161 mg/dL (70-99) Test 11/15/18 10:55 11/15/18 13:19 Prothrombin Time 13.7 SEC (11.7-14.0) Prothromb Time International Ratio 1.1 (0.8-1.1) Glucose (Fingerstick) 164 mg/dL (70-99) Laboratory Tests Test 11/14/18 16:39 11/14/18 20:19 11/14/18 21:33 11/15/18 08:01 Glucose (Fingerstick) 217 mg/dL (70-99) 184 mg/dL (70-99) 186 mg/dL (70-99) 161 mg/dL (70-99) Test 11/15/18 10:55 11/15/18 13:19 Prothrombin Time 13.7 SEC (11.7-14.0) Prothromb Time International Ratio 1.1 (0.8-1.1) Glucose (Fingerstick) 164 mg/dL (70-99) Microbiology 11/12/18 Blood Culture - Preliminary, Resulted NO GROWTH AFTER 3 DAYS 11/09/18 Urine Culture - Final, Complete 11/09/18 Urine Culture Result 1 (GALEN) - Final, Complete 11/09/18 Antimicrobic Susceptibility - Final, Complete Medications Current Medications Sodium Chloride 1,000 ml @ 1,000 mls/hr 1X ONCE IV Last administered on 11/09/18at 19:09; Start 11/09/18 at 18:45; Stop 11/09/18 at 19:44; Status DC Iohexol (Omnipaque 350 Mg/ml) 75 ml 1X ONCE IV ; Start 11/09/18 at 19:00; Stop 11/09/18 at 19:01; Status DC Info (CONTRAST GIVEN -- Rx MONITORING) 1 each PRN DAILY PRN MC SEE COMMENTS; Start 11/09/18 at 19:00; Stop 11/11/18 at 18:59; Status DC Acetaminophen (Tylenol) 1,000 mg 1X ONCE PO Last administered on 11/09/18at 19: 14; Start 11/09/18 at 19:15; Stop 11/09/18 at 19:16; Status DC Sodium Chloride 1,000 ml @ 1,000 mls/hr 1X ONCE IV Last administered on 11/09/18at 19:50; Start 11/09/18 at 19:45; Stop 11/09/18 at 20:44; Status DC Ceftriaxone Sodium (Rocephin) 1 gm 1X ONCE IVP Last administered on 11/09/18at 20:37; Start 11/09/18 at 20:30; Stop 11/09/18 at 20:36; Status DC Ondansetron HCl (Zofran) 4 mg PRN Q8HRS PRN IV NAUSEA/VOMITING; Start 11/09/18 at 20:45; Stop 11/10/18 at 09:10; Status DC Sodium Chloride 1,000 ml @ 125 mls/hr Q8H IV Last administered on 11/09/18at 22:05; Start 11/09/18 at 20:41; Stop 11/10/18 at 20:40; Status DC Acetaminophen (Tylenol) 650 mg PRN Q4HRS PRN PO FEVER; Start 11/09/18 at 20:45; Stop 11/10/18 at 08:29; Status DC Ceftriaxone Sodium (Rocephin) 1 gm Q24H IVP ; Start 11/10/18 at 21:00; Stop 11/10/18 at 21:00; Status DC Insulin Human Lispro (HumaLOG) 0-7 UNITS TIDWMEALS SQ Last administered on 11/14/18at 18:15; Start 11/10/18 at 08:30 Dextrose (Dextrose 50%-Water Syringe) 12.5 gm PRN Q15MIN PRN IV SEE COMMENTS; Start 11/10/18 at 08:30 Acetaminophen (Tylenol) 325 mg PRN Q4HRS PRN PO MILD PAIN / TEMP Last admini stered on 11/14/18at 20:17; Start 11/10/18 at 08:30 Amlodipine Besylate (Norvasc) 5 mg DAILY PO Last administered on 11/15/18at 0 8:24; Start 11/10/18 at 09:00 Aspirin (Children'S Aspirin) 81 mg DAILY PO Last administered on 11/15/18at 08:23; Start 11/10/18 at 09:00 Atorvastatin Calcium (Lipitor) 20 mg DAILY PO Last administered on 11/14/18at 14:24; Start 11/10/18 at 09:00 Citalopram Hydrobromide (CeleXA) 10 mg DAILY PO ; Start 11/10/18 at 09:00; Stop 11/10/18 at 09:10; Status DC Diclofenac Sodium (Voltaren) 2 mainor QID TP Last administered on 11/12/18at 12:34; Start 11/10/18 at 09:00; Stop 11/12/18 at 12:44; Status DC Finasteride (Proscar) 5 mg DAILY PO Last administered on 11/14/18 14:24; Start 11/10/18 at 09:00 Gabapentin (Neurontin) 300 mg PRN QHS PRN PO NEUROPATHIC PAIN Last administered on 11/13/18 20:18; Start 11/10/18 at 08:30 Levetiracetam (Keppra) 1,000 mg BID PO Last administered on 11/15/18 08:23; Start 11/10/18 at 09:00 Tamsulosin HCl (Flomax) 0.4 mg DAILY PO Last administered on 11/14/18 14:24; Start 11/10/18 at 09:00 Cetirizine HCl (ZyrTEC) 10 mg DAILY PO Last administered on 11/14/18 14:23; Start 11/10/18 at 09:00 Multivitamins (Thera M Plus) 1 tab DAILY PO Last administered on 11/14/18 14:24; Start 11/10/18 at 09:00 Nystatin (Mycostatin) 1 mainor PRN BID PRN TP REDNESS Last administered on 11/11/18 08:50; Start 11/10/18 at 09:00 Polyethylene Glycol (miraLAX PACKET) 17 gm DAILY PO Last administered on 11/13/18 08:42; Start 11/10/18 at 09:00 Furosemide (Lasix) 20 mg 1X ONCE IVP Last administered on 11/10/18 09:57; Start 11/10/18 at 09:30; Stop 11/10/18 at 09:31; Status DC Piperacillin Sod/ Tazobactam Sod 3.375 gm/Sodium Chloride 50 ml @ 100 mls/hr Q6HRS IV Last administered on 11/14/18 05:35; Start 11/10/18 at 12:30; Stop 11/14/18 at 08:42; Status DC Enoxaparin Sodium (Lovenox 40mg Syringe) 40 mg Q24H SQ Last administered on 11/14/18 18:10; Start 11/10/18 at 16:00; Stop 11/15/18 at 13:12; Status DC Metformin HCl (Glucophage Xr) 500 mg DAILYWBKFT PO Last administered on 9at 14:24; Start 11/12/18 at 08:00 Insulin Glargine (Lantus) 10 units QHS SQ Last administered on 11/11/18at 20:24; Start 11/11/18 at 21:00; Stop 11/12/18 at 10:59; Status DC Lactobacillus Rhamnosus (Culturelle) 1 cap BID PO Last administered on 11/14/18a t 20:18; Start 11/11/18 at 21:00 Insulin Glargine (Lantus) 16 units QHS SQ Last administered on 11/14/18at 20:27; Start 11/12/18 at 21:00 Diclofenac Sodium (Voltaren) 2 mainor PRN QID PRN TP SHOULDER PAIN Last administered on 11/13/18at 20:19; Start 11/12/18 at 12:45 Ceftriaxone Sodium (Rocephin) 2 gm Q24H IVP Last administered on 11/15/18at 08:23; Start 11/14/18 at 09:00 Cefazolin Sodium/ Dextrose 50 ml @ 100 mls/hr 1X ONCE IV ; Start 11/15/18 at 06:00; Stop 11/15/18 at 06:29; Status Cancel Bacitracin 34896 unit/Sodium Chloride 250 ml @ 250 mls/hr 1X ONCE IRR Last administered on 11/15/18at 12:48; Start 11/15/18 at 11:00; Stop 11/15/18 at 11:59; Status DC Cefazolin Sodium/ Dextrose 50 ml @ 100 mls/hr 1X ONCE IV Last administered on 11/15/18at 10:30; Start 11/15/18 at 10:30; Stop 11/15/18 at 10:59; Status DC Lidocaine/ Epinephrine (LIDOCAINE 2%-EPI 1:100,000 multi-dose) 20 ml STK-MED ONCE .ROUTE ; Start 11/15/18 at 11:35; Stop 11/15/18 at 11:36; Status DC Midazolam HCl (Versed) 5 mg STK-MED ONCE .ROUTE ; Start 11/15/18 at 11:36; Stop 11/15/18 at 11:37; Status DC Fentanyl Citrate (Fentanyl 5ml Vial) 250 mcg STK-MED ONCE .ROUTE ; Start 11/15/18 at 11:37; Stop 11/15/18 at 11:38; Status DC Midazolam HCl (Versed) 5 mg 1X ONCE IV Last administered on 11/15/18at 12:48; Start 11/15/18 at 12:00; Stop 11/15/18 at 12:01; Status DC Fentanyl Citrate (Fentanyl 5ml Vial) 250 mcg 1X ONCE IV Last administered on 11/15/18at 12:51; Start 11/15/18 at 12:00; Stop 11/15/18 at 12:01; Status DC Lidocaine/ Epinephrine (LIDOCAINE 2%-EPI 1:100,000 multi-dose) 20 ml 1X ONCE IJ Last administered on 11/15/18at 12:48; Start 11/15/18 at 12:00; Stop 11/15/18 at 12:01; Status DC Info (No Anticoagulant Therapy) 1 ea CONT PRN PRN MC PER PROTOCOL; Start 11/15/18 at 13:15 Active Scripts Active Reported Tylenol (Acetaminophen) 325 Mg Tablet 325 Mg PO PRN Q4HRS PRN Aspirin 81 Mg Tab.chew 1 Tab PO DAILY Levetiracetam 500 Mg Tablet 1,000 Mg PO BID Miralax (Polyethylene Glycol 3350) 17 Gm Powd.pack 1 Packet PO DAILY Flomax (Tamsulosin Hcl) 0.4 Mg Cap.er.24h 1 Cap PO DAILY Multivitamins (Multivitamin) 1 Each Tablet 1 Tab PO DAILY Norvasc (Amlodipine Besylate) 5 Mg Tablet 1 Tab PO DAILY Atorvastatin Calcium 20 Mg Tablet 1 Tab PO DAILY Gabapentin 300 Mg Capsule 300 Mg PO PRN QHS PRN Proscar (Finasteride) 5 Mg Tablet 1 Tab PO DAILY Voltaren (Diclofenac Sodium) 100 Gm Gel..gram. 2 Gm TP QID Claritin (Loratadine) 10 Mg Tablet 1 Tab PO DAILY Citalopram Hbr (Citalopram Hydrobromide) 10 Mg Tablet 1 Tab PO DAILY Robitussin Cough-Chest Dm Liq (Guaifenesin/Dextromethorphan) 237 Ml Liquid 10 Ml PO PRN Q4HRS PRN Nystatin 15 Gm Cream..g. 1 Mainor TP PRN BID PRN Vitals/I & O Vital Sign - Last 24 Hours 11/14/18 11/14/18 11/14/18 11/14/18 14:24 14:43 19:45 20:00 Temp 97.5 97.4 97.5 97.4 Pulse 75 85 88 Resp 16 16 B/P (MAP) 142/76 146/84 (104) 119/70 (86) Pulse Ox 93 93 O2 Delivery Room Air Room Air Room Air 11/14/18 11/15/18 11/15/18 11/15/18 22:22 02:12 07:00 08:00 Temp 97.6 97.5 98.6 97.6 97.5 98.6 Pulse 82 77 79 Resp 16 16 12 B/P (MAP) 122/64 (83) 97/59 (72) 130/69 (89) Pulse Ox 96 98 93 O2 Delivery Room Air Room Air Room Air Room Air 11/15/18 11/15/18 11/15/18 11/15/18 08:24 11:00 12:51 12:56 Temp 98.0 98.0 Pulse 85 83 89 Resp 14 15 16 B/P (MAP) 129/75 (93) Pulse Ox 91 94 95 O2 Delivery Room Air Nasal Cannula Nasal Cannula O2 Flow Rate 2.0 4.0 Intake and Output 11/14/18 11/14/18 11/15/18 15:00 23:00 07:00 Intake Total 540 ml Output Total 400 ml 200 ml Balance 140 ml -200 ml GERMAN HE MD November 15, 2018 14:13
--- NOTE | 2018-11-15 14:13 | NUR ---
Wound care: patient seen per wound care consult. Patient has no open areas at this time. There are two small areas on the left hip area but they are closed. Coccyx has some incontinence associated dermatitis, reddened but remains blanchable. Recommendations for calazime cream. Calazime cream applied. Patient repositioned in bed. Call light in reach. Wound care will follow up next week to make sure area remains closed.
[2018-11-15] MEDS: TAMSULOSIN 0.4 MG CAP.ER.24H. PO SCH (14:42)
[2018-11-15] MEDS: FINASTERIDE 5 MG TABLET. PO SCH (14:42)
[2018-11-15] MEDS: CETIRIZINE HCL 10 MG TABLET. PO SCH (14:42)
[2018-11-15] MEDS: MULTIVITAMIN with MINERAL TABLET. PO SCH (14:42)
[2018-11-15] MEDS: ATORVASTATIN CALCIUM 20 MG TABLET PO SCH (14:42)
[2018-11-15] MEDS: ACETAMINOPHEN 325 MG TABLET. PO PRN (21:22)
[2018-11-15] MEDS: GABAPENTIN 300 MG CAPSULE. PO PRN (21:23)
[2018-11-15] MEDS: DICLOFENAC SODIUM 1% TOPICAL GEL 100GM TUBE. TP PRN (21:24)
[2018-11-15] MEDS: INSULIN GLARGINE 300 UNITS/3 ML INSULN.PEN. SQ SCH (21:34)
[2018-11-16 03:00] VITALS: BP_SYST 119; BP_SYST 121; BP_DIAS 68; BP_DIAS 69
[2018-11-16 07:14] VITALS: BP 138/72
--- NOTE | 2018-11-16 08:23 | PDOC ---
Infectious Disease Note Subjective Subjective pt is feeling ok, had pacemaker ROS ROS no n/v/d/sob Vital Sign Vital Signs Vital Signs Date Time Temp Pulse Resp B/P (MAP) Pulse Ox O2 Delivery O2 Flow Rate FiO2 11/16/18 07:14 97.8 80 16 138/72 (94) 92 Room Air 4.0 97.8 Physical Exam PHYSICAL EXAM GENERAL: Lying down, awake, NAD HEENT: Pupils are status post cataract surgery with normal conjunctivae. Oral cavity, pharynx is clear, there is some questionable dentition. NECK: Supple, without JVD. LUNGS: Decreased in the bases. HEART: S1, S2. ABDOMEN: Soft, nontender, no guarding or rebound. EXTREMITIES: No clubbing or cyanosis. No gross edema. SKIN: Warm to touch without signs of rash. NEUROLOGIC: Alert, answers questions appropriately. PIV Labs Lab Laboratory Tests Test 11/15/18 10:55 11/15/18 13:19 11/15/18 16:39 11/15/18 21:21 Prothrombin Time 13.7 SEC (11.7-14.0) Prothromb Time International Ratio 1.1 (0.8-1.1) Glucose (Fingerstick) 164 mg/dL (70-99) 236 mg/dL (70-99) 206 mg/dL (70-99) Test 11/16/18 07:01 Glucose (Fingerstick) 162 mg/dL (70-99) Micro BC g neg wilmer, E coli repeat neg urine with e coli Objective Assessment Sepsis with GNR bacteremia (POA), 11/09/2018. E coli Leukocytosis, better Urinary tract infection, (POA), 11/09/2018. UC E. coli Bradycardia with sinus pauses. Plan Plan of Care rocephine,,, change to po omnicef x 7 days repeat bc neg pacemaker done d/w DEEPA ok to d/c ROBBY KEEN MD November 16, 2018 08:23
--- NOTE | 2018-11-16 08:28 | RAD ---
Portable chest, 11/16/2018: HISTORY: Post pacemaker insertion Comparison is made to yesterday's study. A left-sided transvenous pacemaker is unchanged in position with 2 leads extending into the right heart. There is mild unchanged elevation of the right hemidiaphragm. The heart appears mildly enlarged and is unchanged. There is calcific plaquing of the aorta. The pulmonary vascularity is normal. No acute infiltrate is seen. There is no evidence of pneumothorax or significant pleural fluid. IMPRESSION: No acute abnormality is detected with no significant change since yesterday's exam. Electronically signed by: Lloyd Rousseau MD (11/16/2018 8:25 AM) [facility]
[2018-11-16] MEDS: FINASTERIDE 5 MG TABLET. PO SCH (08:59)
[2018-11-16] MEDS: TAMSULOSIN 0.4 MG CAP.ER.24H. PO SCH (08:59)
[2018-11-16] MEDS: CETIRIZINE HCL 10 MG TABLET. PO SCH (09:00)
[2018-11-16] MEDS: metFORMIN XR 500 MG TAB.ER.24H PO SCH (09:00)
[2018-11-16] MEDS: MULTIVITAMIN with MINERAL TABLET. PO SCH (09:00)
[2018-11-16] MEDS: amLODIPine BESYLATE 5 MG TABLET PO SCH (09:00)
[2018-11-16] MEDS: LACTOBACILLUS RHAMNOSUS GG 1 CAPSULE. PO SCH (09:00)
[2018-11-16] MEDS: ATORVASTATIN CALCIUM 20 MG TABLET PO SCH (09:00)
[2018-11-16] MEDS ORDERED: CEFDINIR 300 MG CAPSULE PO SCH (09:00)
[2018-11-16] MEDS: POLYETHYLENE GLYCOL 3350 17 GM PACKET. PO SCH (09:00)
[2018-11-16] MEDS: levETIRAcetam 500 MG TABLET PO SCH (09:00)
[2018-11-16] MEDS: ASPIRIN CHEWABLE 81 MG TABLET. PO SCH (09:00)
[2018-11-16] MEDS: INSULIN LISPRO 300 UNITS/3 ML INSULN.PEN. SQ SCH ×2 (09:17→12:07)
[2018-11-16 11:08] VITALS: BP 121/75
[2018-11-16] MEDS ORDERED: CEFD300C PO (11:17)
[2018-11-16] MEDS ORDERED: METF500T3 PO (11:17)
[2018-11-16] MEDS ORDERED: INSU100I11 SQ (11:17)
[2018-11-16] MEDS ORDERED: INSU100I13 SQ (11:17)
--- NOTE | 2018-11-16 12:17 | SNU/HH DC ---
DISCHARGE ORDERS DISCHARGE INFORMATION: DISCHARGE DATE: November 16, 2018 FINAL DIAGNOSIS Problems Medical Problems: (1) Acute metabolic encephalopathy Status: Acute (2) CVA, old, hemiparesis Status: Acute (3) Hyperglycemia Status: Acute (4) Sepsis Status: Acute (5) UTI (urinary tract infection) Status: Acute CONDITION ON DISCHARGE: Stable CODE STATUS: Code Status: Full INTERMEDIATE: SNF STAY <30 DAYS: Yes POST DISCHARGE ORDERS: ACTIVITY ORDERS: Resume previous activity DIET AFTER DISCHARGE: ADA TREATMENT/EQUIPMENT ORDERS: Physical Therapy For: Other: Occupational Therapy For: Other: (usp care) DISCHARGE MEDICATIONS: Home Meds Active Scripts Insulin Lispro (HUMALOG) 100 Unit/1 Ml Insuln.pen, 0 UNITS SQ TIDWMEALS for dm2 for 30 Days, #1 EACH Prov:GERMAN HE MD 11/16/18 Insulin Glargine,Hum.rec.anlog (LANTUS SOLOSTAR) 100 Unit/1 Ml Insuln.pen, 16 UNITS SQ QHS for dm2 for 30 Days, #1 EACH Prov:GERMAN HE MD 11/16/18 Metformin Hcl (GLUCOPHAGE XR) 500 Mg Tab.er.24h, 500 MG PO DAILYWBKFT for dm for 30 Days, #30 TAB.SR Prov:GERMAN HE MD 11/16/18 Cefdinir (CEFDINIR) 300 Mg Capsule, 300 MG PO BID for uti for 7 Days, #14 CAP Prov:GERMAN HE MD 11/16/18 Reported Medications Acetaminophen (TYLENOL) 325 Mg Tablet, 325 MG PO PRN Q4HRS PRN for MILD PAIN / TEMP, TAB 11/10/18 Aspirin (ASPIRIN) 81 Mg Tab.chew, 1 TAB PO DAILY for CVA prevention, TAB 11/10/18 Levetiracetam (LEVETIRACETAM) 500 Mg Tablet, 1000 MG PO BID for Seizures, TAB 11/10/18 Polyethylene Glycol 3350 (MIRALAX) 17 Gm Powd.pack, 1 PACKET PO DAILY for Constipation, PACKET 11/10/18 Tamsulosin Hcl (FLOMAX) 0.4 Mg Cap.er.24h, 1 CAP PO DAILY for Urinary , CAP 11/10/18 Multivitamin (MULTIVITAMINS) 1 Each Tablet, 1 TAB PO DAILY for Supplement, TAB 5/17/19 Amlodipine Besylate (NORVASC) 5 Mg Tablet, 1 TAB PO DAILY for HTN, TAB 11/10/18 Atorvastatin Calcium (ATORVASTATIN CALCIUM) 20 Mg Tablet, 1 TAB PO DAILY for Cholesterol, TAB 11/10/18 Gabapentin (GABAPENTIN) 300 Mg Capsule, 300 MG PO PRN QHS PRN for PAIN, CAP 11/10/18 Finasteride (PROSCAR) 5 Mg Tablet, 1 TAB PO DAILY for BPH, TAB 11/10/18 Diclofenac Sodium (VOLTAREN) 100 Gm Gel..gram., 2 GM TP QID for Shoulder pain, GM 11/10/18 Loratadine (CLARITIN) 10 Mg Tablet, 1 TAB PO DAILY for Allergies, TAB 11/10/18 Citalopram Hydrobromide (CITALOPRAM HBR) 10 Mg Tablet, 1 TAB PO DAILY for Depression, TAB 11/10/18 Guaifenesin/Dextromethorphan (Robitussin Cough-Chest Dm Liq) 237 Ml Liquid, 10 ML PO PRN Q4HRS PRN for COUGH, LIQUID 11/10/18 Nystatin (NYSTATIN) 15 Gm Cream..g., 1 ADAMARIS TP PRN BID PRN for REDNESS, GM 11/10/18 GERMAN HE MD November 16, 2018 12:17
--- NOTE | 2018-11-16 12:50 | NUR ---
SS following up with discharge planning. Discharge orders received for return to [facility], ; fax [phone]. SS phoned and faxed discharge orders to [facility]. Pt will discharge today and go to [facility] at 1400 via [facility], . Pt, pt's RN, and pt's spouse notified.
--- NOTE | 2018-11-16 13:12 | PDOC ---
KINGSTON SAVAGE [employer] 11/16/18 1312: CARDIO Progress Notes Date and Time Date of Service 11/16/2018 Time of Evaluation 1300 Subjective Subjective: No Chest Pain, No shortness of breath, No Palpitations Vitals Vitals Vital Signs Date Time Temp Pulse Resp B/P (MAP) Pulse Ox O2 Delivery O2 Flow Rate FiO2 11/16/18 11:08 97.8 88 16 121/75 (90) 92 Room Air 4.0 97.8 Weight Weight [ ] Input and Output Intake and Output Intake and Output 11/16/18 06:59 Intake Total 200 ml Output Total 1050 ml Balance -850 ml Intake Oral 200 ml Output Urine Total 1050 ml # Voids 1 # Bowel Movements 2 Laboratory Labs Laboratory Tests Test 11/15/18 13:19 11/15/18 16:39 11/15/18 21:21 11/16/18 07:01 Glucose (Fingerstick) 164 mg/dL (70-99) 236 mg/dL (70-99) 206 mg/dL (70-99) 162 mg/dL (70-99) Test 11/16/18 11:20 Glucose (Fingerstick) 167 mg/dL (70-99) Microbiology Micro Microbiology 11/12/18 Blood Culture - Preliminary, Resulted NO GROWTH AFTER 4 DAYS 11/09/18 Urine Culture - Final, Complete 11/09/18 Urine Culture Result 1 (GALEN) - Final, Complete 11/09/18 Antimicrobic Susceptibility - Final, Complete Physical Exam HEENT: Neck Supple W Full Motion Chest: Symmetric LUNGS: Clear to Auscultation Heart: S1S2, RRR (SR with intermittent pacing) Abdomen: Soft N/T Extremities: Other (left side hemiparesis)) Neurology: alert, oriented, follow commands Other Exams left chest incision with steristrips, well approximated, no oozing, no significant erythema, now RECEPTIONIST CLERK. Neurovascular status to LUE intact Assessment Assessment 1. SSS/high grade AV block/pauses: EF and WM nml. S/P PPM St. Kurt dual chamber no complications. repeat interrogation revealed normal function 2. UTI with sepsis: improved 3. Metabolic encephalopathy: Improved 4. HTN: controlled 5. DM2/HLP: Per IM 6. Chronic diastolic CHF: compensated. Recommendations 1. Continue with secondary prevention measures. 2. Follow up in office in 4 weeks. Defer 2 week wound check to SNU where he resides. 3. Continue with BP regimen. Post PPM instructions per staff. 4. Will consider for outpt ischemic w/u as an outpt if none done recently given his significant cardiac risks factors. LATANYA GUTIERREZ MD 11/16/182129: CARDIO Progress Notes Assessment Assessment Patient seen and examined. Agree with PIPE FOREMAN's assessment and plan. s/p PPM implantation yesterday CXR without pneumo, device check showed normal function Follow up in one month KINGSTON SAVAGE APRN November 16, 2018 13:12 LATANYA GUTIERREZ MD November 16, 2018 21:30
--- NOTE | 2018-11-16 14:12 | NUR ---
Discharge Note: [place] Discharge instructions and discharge home medications reviewed with Other facility and a copy given. All questions have been answered and understanding verbalized. The following instructions and handouts were given: Cefdinir, Insulin Glargine, Insulin Lispro, and Metformin. Patient discharged to [facility] via EMS.
== END 2018-11-16 14:00 | DRG 853 ==
LOC: ER 18:36 → 6 SOUTH 18:50 → 2 NORTH 11-10 04:34
PROVIDERS: ADMIT Family Medicine; ATTEND Family Medicine
PROC: 0JH606Z Insertion of Pacemaker, Dual Chamber into Chest Subcutaneous Tissue and Fascia, Open Approach (ICD-10-PCS; principal; 2018-11-15)
PROC: 02H63JZ Insertion of Pacemaker Lead into Right Atrium, Percutaneous Approach (ICD-10-PCS; 2018-11-15)
PROC: 02HK3JZ Insertion of Pacemaker Lead into Right Ventricle, Percutaneous Approach (ICD-10-PCS; 2018-11-15)
PROC: 4B02XSZ Measurement of Cardiac Pacemaker, External Approach (ICD-10-PCS; 2018-11-16)
DX: A41.51 Sepsis due to Escherichia coli [E. coli] (principal); I46.9 Cardiac arrest, cause unspecified; G92 Toxic encephalopathy; I69.354 Hemiplegia and hemiparesis following cerebral infarction affecting left non-dominant side; N39.0 Urinary tract infection, site not specified; I50.32 Chronic diastolic (congestive) heart failure; I44.1 Atrioventricular block, second degree; F32.9 Major depressive disorder, single episode, unspecified; M19.90 Unspecified osteoarthritis, unspecified site; E66.9 Obesity, unspecified; K59.00 Constipation, unspecified; F41.9 Anxiety disorder, unspecified; E11.65 Type 2 diabetes mellitus with hyperglycemia; E78.5 Hyperlipidemia, unspecified; G40.909 Epilepsy, unspecified, not intractable, without status epilepticus; I11.0 Hypertensive heart disease with heart failure; I45.81 Long QT syndrome; I49.5 Sick sinus syndrome; J44.9 Chronic obstructive pulmonary disease, unspecified; N40.0 Benign prostatic hyperplasia without lower urinary tract symptoms; Z82.49 Family history of ischemic heart disease and other diseases of the circulatory system; Z85.51 Personal history of malignant neoplasm of bladder; Z87.440 Personal history of urinary (tract) infections; Z68.34 Body mass index [BMI] 34.0-34.9, adult; Z82.61 Family history of arthritis
CPT/HCPCS: 33208; 36415; 70450; 71045; 80048; 80053; 80307; 81001; 82962; 83036; 83605; 83735; 83880; 84443; 84484; 85007; 85025; 85610; 87040; 87077; 87086; 87186; 87205; 87641; 93005; 93306; 96361; 96374; 99152; 99153; C1785; C1898; J0696; J1650; J1815; J1940; J2250; J2543; J3010; J3490; J7030; J7050; 99285-25

== ENCOUNTER → 2019-04-08 | Outpatient (CLI) | payer MEDICARE ==
[~2019-04-08] MED LIST: ACET325T9 PO; AMLO5TAB4 PO; ASPI-630 PO; ATOR20TA58 PO; CEFD300C PO; CITA10TA4 PO; DICL100G18 TP; FINA5TAB PO; GABA300C18 PO; GUAI237L83 PO; INSU100I11 SQ; INSU100I13 SQ; LEVE500T6 PO; LORA10TA68 PO; METF500T3 PO; MULT1TAB52 PO; NYST15CR TP; POLY17PO29 PO; TAMS0.4C97 PO
[2019-04-08 08:27] LABS: BASO % 0 % (0-3); EOS # 0.5 x10^3/uL (0.0-0.7); EOS % 5 % (0-3); HEMATOCRIT 41.1 % (39.0-53.0); HEMOGLOBIN 14.3 g/dL (13.0-17.5); LYMPH # 1.4 x10^3/uL (1.0-4.8); LYMPH % 14 % (24-48); MEAN CORPUSCULAR HEMOGLOBIN 32 pg (25-35); MEAN CORPUSCULAR HGB CONC 35 g/dL (31-37); MEAN CORPUSCULAR VOLUME 91 fL (79-100); MONO # 0.8 x10^3/uL (0.0-1.1); MONO % 8 % (0-9); NEUT # 7.2 x10^3/uL (1.8-7.7); NEUT % 73 % (31-73); PLATELET COUNT 224 x10^3/uL (140-400); RED BLOOD COUNT 4.54 x10^6/uL (4.30-5.70); RED CELL DISTRIBUTION WIDTH 13.7 % (11.5-14.5); WHITE BLOOD COUNT 9.9 x10^3/uL (4.0-11.0)
[2019-04-08 08:51] LABS: CALCIUM 9.4 mg/dL (8.5-10.1); CREATININE 0.6 mg/dL (0.7-1.3); GFR 130.6; POTASSIUM 3.9 mmol/L (3.5-5.1)
== END | disposition home or self-care (01) ==
LOC: SPEC 02:56 → EDSTATUS 04-09 12:31
PROVIDERS: ATTEND Family Medicine
DX: R09.89 Other specified symptoms and signs involving the circulatory and respiratory systems (principal)
CPT/HCPCS: 36415; 80048; 85025

== ENCOUNTER → 2019-06-01 | Outpatient (CLI) | payer MEDICARE ==
[2019-06-01 09:54] LABS: ALBUMIN 3.1 g/dL (3.4-5.0); ALBUMIN/GLOBULIN RATIO 0.8 (1.0-1.7); CALCIUM 8.6 mg/dL (8.5-10.1); CHOLESTEROL/HDL RATIO 3.2; CREATININE 0.6 mg/dL (0.7-1.3); GFR 130.6; POTASSIUM 3.6 mmol/L (3.5-5.1); TOTAL BILIRUBIN 0.9 mg/dL (0.2-1.0); TOTAL PROTEIN 6.9 g/dL (6.4-8.2)
[2019-06-02 00:07] LABS: HEMOGLOBIN A1C 6.4 % (4.8-5.6)
== END ==
LOC: SPEC 03:14
PROVIDERS: ATTEND Family Medicine
DX: E11.9 Type 2 diabetes mellitus without complications (principal); I11.0 Hypertensive heart disease with heart failure; I50.9 Heart failure, unspecified; E78.00 Pure hypercholesterolemia, unspecified; J44.9 Chronic obstructive pulmonary disease, unspecified
CPT/HCPCS: 36415; 80053; 80061; 83036

== ENCOUNTER → 2019-07-06 | Outpatient (CLI) | payer MEDICARE ==
[2019-07-06 05:27] LABS: BASO % 1 % (0-3); EOS # 0.3 x10^3/uL (0.0-0.7); EOS % 5 % (0-3); HEMOGLOBIN 13.6 g/dL (13.0-17.5); LYMPH % 29 % (24-48); MEAN CORPUSCULAR HEMOGLOBIN 31 pg (25-35); MEAN CORPUSCULAR HGB CONC 34 g/dL (31-37); MEAN CORPUSCULAR VOLUME 91 fL (79-100); MONO # 0.5 x10^3/uL (0.0-1.1); MONO % 7 % (0-9); NEUT % 59 % (31-73); PLATELET COUNT 238 x10^3/uL (140-400); RED BLOOD COUNT 4.38 x10^6/uL (4.30-5.70); RED CELL DISTRIBUTION WIDTH 13.7 % (11.5-14.5); WHITE BLOOD COUNT 6.9 x10^3/uL (4.0-11.0)
[2019-07-06 06:06] LABS: CALCIUM 8.4 mg/dL (8.5-10.1); CREATININE 0.6 mg/dL (0.7-1.3); GFR 130.6; TOTAL BILIRUBIN 0.5 mg/dL (0.2-1.0)
== END | disposition home or self-care (01) ==
LOC: SPEC 02:20
PROVIDERS: ATTEND Family Medicine
DX: E11.9 Type 2 diabetes mellitus without complications (principal); I11.0 Hypertensive heart disease with heart failure; I50.30 Unspecified diastolic (congestive) heart failure; I69.990 Apraxia following unspecified cerebrovascular disease
CPT/HCPCS: 36415; 80053; 85025

== ENCOUNTER → 2019-12-10 | Outpatient (CLI) | payer MEDICARE ==
[~2019-12-10] MED LIST changes: -DICL100G18 TP; +DICL100G54 TP; +MULT-445 PO; -MULT1TAB52 PO
[2019-12-10 09:00] LABS: BASO % 1 % (0-3); EOS # 0.3 x10^3/uL (0.0-0.7); EOS % 5 % (0-3); HEMATOCRIT 45.4 % (39.0-53.0); HEMOGLOBIN 15.6 g/dL (13.0-17.5); LYMPH # 1.7 x10^3/uL (1.0-4.8); LYMPH % 31 % (24-48); MEAN CORPUSCULAR HEMOGLOBIN 31 pg (25-35); MEAN CORPUSCULAR HGB CONC 34 g/dL (31-37); MEAN CORPUSCULAR VOLUME 91 fL (79-100); MONO # 0.4 x10^3/uL (0.0-1.1); MONO % 6 % (0-9); NEUT # 3.2 x10^3/uL (1.8-7.7); NEUT % 57 % (31-73); PLATELET COUNT 246 x10^3/uL (140-400); RED CELL DISTRIBUTION WIDTH 13.8 % (11.5-14.5); WHITE BLOOD COUNT 5.7 x10^3/uL (4.0-11.0)
[2019-12-10 09:34] LABS: ALBUMIN 3.4 g/dL (3.4-5.0); CALCIUM 8.9 mg/dL (8.5-10.1); CREATININE 0.7 mg/dL (0.7-1.3); GFR 109.4; POTASSIUM 4.4 mmol/L (3.5-5.1); TOTAL BILIRUBIN 0.9 mg/dL (0.2-1.0); TOTAL PROTEIN 6.7 g/dL (6.4-8.2)
[2019-12-11 01:08] LABS: HEMOGLOBIN A1C 7.6 % (4.8-5.6)
== END | disposition home or self-care (01) ==
LOC: SPEC 08:27
PROVIDERS: ATTEND Family Medicine
DX: I11.0 Hypertensive heart disease with heart failure (principal); I50.30 Unspecified diastolic (congestive) heart failure; E11.9 Type 2 diabetes mellitus without complications
CPT/HCPCS: 36415; 80053; 83036; 85025

== ENCOUNTER → 2020-03-05 | Outpatient (CLI) | payer MEDICARE ==
[2020-03-06 01:08] LABS: HEMOGLOBIN A1C 7.5 % (4.8-5.6)
== END | disposition home or self-care (01) ==
LOC: SPEC 11:39
PROVIDERS: ATTEND Family Medicine
DX: E11.9 Type 2 diabetes mellitus without complications (principal)
CPT/HCPCS: 36415; 83036

== ENCOUNTER → 2020-04-02 | Outpatient (CLI) | payer MEDICARE, OTHER ==
--- NOTE | 2020-04-02 12:47 | CARD ---
MR#: [id number] Date of Study: 04/02/2020 Ordering Physician: ELA BUENROSTRO, Referring Physician: ELA BUENROSTRO, Tech: Noy Gutierrez APPROVED REPORT EXAM: Two-dimensional and M-mode echocardiogram with Doppler and color Doppler. Other Information Quality : FairHR: 74bpm Technically limited study due to patient scanned in wheel chair INDICATION Arrhythmia Sick Sinus Syndrome Surgery/Intervention Pacemaker: Date: 2016 RISK FACTORS Hypertension Hyperlipidemia Diabetes Stroke 2017 2D DIMENSIONS Left Atrium(2D)3.9 (1.6-4.0cm)IVSd1.3 (0.7-1.1cm) Aortic Root(2D)3.3 (2.0-3.7cm)LVDd4.6 (3.9-5.9cm) LVOT Diameter1.9 (1.8-2.4cm)PWd1.3 (0.7-1.1cm) LVDs3.5 (2.5-4.0cm)FS (%) 24.1 % SV47.7 mlLVEF(%)48.0 (>50%) Aortic Valve AoV Peak Reji.127.9cm/sAoV VTI26.5cm AO Peak GR.6.5mmHgLVOT Peak Reji.107.2cm/s AO Mean GR.5mmHgAVA (VMAX)2.42cm2 Mitral Valve MV E Mvmkhcpr78.9cm/sMV E Peak Gr.9mmHg MV DECEL [id number] A Srezheco875.7cm/s MV E Mean Gr.4mmHgE/A Ratio0.6 Pulmonary Valve PV Peak Yipwsleu26.2cm/s Tricuspid Valve TR P. Mwqdtipb958mg/sRAP HOCDXUZN7pyCh TR Peak Gr.39qbFaIAEI57zbDm LEFT VENTRICLE The left ventricle is normal size. There is mild to moderate concentric left ventricular hypertrophy. The left ventricular systolic function is normal. The ejection fraction is 55 to 60%. There is kar l LV segmental wall motion. Transmitral Doppler flow pattern is Grade I-abnormal relaxation pattern. RIGHT VENTRICLE The right ventricle is normal size. There is normal right ventricular wall thickness. The right ventr icular systolic function is normal. ATRIA The left atrium size is normal. The right atrium is borderline dilated. The interatrial septum is int act with no evidence for an atrial septal defect or patent foramen ovale as noted on 2-D or Doppler i maging. AORTIC VALVE The aortic valve is mildly to moderately thickened. Doppler and Color Flow revealed trace aortic regu rgitation. There is no significant aortic valvular stenosis. Calculated aortic valve area is 3.2 cm2 with maximum pressure gradient of 8 mmHg and mean pressure gradient of 5 mmHg. MITRAL VALVE The mitral valve is thickened but opens well. There is no evidence of mitral valve prolapse. There is no mitral valve stenosis. Trace mitral regurgitation. TRICUSPID VALVE The tricuspid valve is normal in structure and function. Doppler and Color Flow revealed trace tricus pid regurgitation with an estimated PAP of 31 mmHg. There is no tricuspid valve stenosis. PULMONIC VALVE The pulmonic valve is not well visualized. Doppler and Color Flow revealed trace pulmonic valvular re gurgitation. GREAT VESSELS The aortic root is normal in size. The ascending aorta is normal in size. The IVC was not well visual ized. PERICARDIAL EFFUSION There is no evidence of significant pericardial effusion. Critical Notification Critical Value: No <Conclusion> The left ventricular systolic function is normal. The ejection fraction is 55 to 60%. There is normal LV segmental wall motion. Transmitral Doppler flow pattern is Grade I-abnormal relaxation pattern. Trace mitral regurgitation. Trace tricuspid regurgitation with an estimated PAP of 31 mmHg. There is no evidence of significant pericardial effusion. Signed by : Mykel Anthony, Electronically Approved : 04/02/2020 12:46:37
== END ==
LOC: ECHO 09:41
PROVIDERS: ATTEND Internal Medicine Cardiovascular Disease
DX: I49.5 Sick sinus syndrome (principal); I51.7 Cardiomegaly
CPT/HCPCS: 93306

== ENCOUNTER → 2020-04-10 | Outpatient (CLI) | payer MEDICARE, OTHER ==
[2020-04-10 10:21] LABS: CHOLESTEROL/HDL RATIO 3.9
== END ==
LOC: SPEC 09:31 → EDSTATUS 16:31
PROVIDERS: ATTEND Family Medicine
DX: E78.5 Hyperlipidemia, unspecified (principal); I69.354 Hemiplegia and hemiparesis following cerebral infarction affecting left non-dominant side
CPT/HCPCS: 36415; 80061

== ENCOUNTER → 2020-05-28 | Outpatient (CLI) | payer MEDICARE, OTHER ==
[2020-05-28 14:07] LABS: BILIRUBIN,URINE NEGATIVE (NEG); CLARITY,URINE CLEAR; COLOR,URINE YELLOW; NITRITE,URINE NEGATIVE (NEG); PROTEIN,URINE 30 mg/dL (NEG-TRACE)
[2020-05-28 14:16] LABS: RBC,URINE 20-40 /HPF (0-2)
[2020-05-28 14:17] LABS: BACTERIA,URINE FEW /HPF (0-FEW); WBC,URINE OCC /HPF (0-4)
== END ==
LOC: SPEC 13:43
PROVIDERS: ATTEND Family Medicine
DX: R30.0 Dysuria (principal)
CPT/HCPCS: 81001

== ENCOUNTER → 2020-06-03 | Outpatient (CLI) | payer MEDICARE, OTHER ==
[2020-06-03 12:01] LABS: HEMATOCRIT 45.2 % (39.0-53.0); HEMOGLOBIN 15.5 g/dL (13.0-17.5); RED BLOOD COUNT 4.96 x10^6/uL (4.30-5.70); RED CELL DISTRIBUTION WIDTH 13.7 % (11.5-14.5); WHITE BLOOD COUNT 6.2 x10^3/uL (4.0-11.0)
[2020-06-03 12:37] LABS: ALBUMIN 3.5 g/dL (3.4-5.0); ALBUMIN/GLOBULIN RATIO 1.1 (1.0-1.7); CALCIUM 8.9 mg/dL (8.5-10.1); CREATININE 0.5 mg/dL (0.7-1.3); GFR 160.8; POTASSIUM 3.9 mmol/L (3.5-5.1); TOTAL BILIRUBIN 1.2 mg/dL (0.2-1.0); TOTAL PROTEIN 6.7 g/dL (6.4-8.2)
[2020-06-04 01:13] LABS: HEMOGLOBIN A1C 7.9 % (4.8-5.6)
== END ==
LOC: SPEC 10:18
PROVIDERS: ATTEND Family Medicine
DX: E11.9 Type 2 diabetes mellitus without complications (principal); J44.9 Chronic obstructive pulmonary disease, unspecified; I11.0 Hypertensive heart disease with heart failure
CPT/HCPCS: 36415; 80053; 83036; 85027

== ENCOUNTER → 2020-06-12 | Outpatient (CLI) | payer MEDICARE, OTHER ==
[2020-06-12 14:47] LABS: BILIRUBIN,URINE NEGATIVE (NEG); CLARITY,URINE CLEAR; COLOR,URINE YELLOW; NITRITE,URINE NEGATIVE (NEG); PROTEIN,URINE NEGATIVE (NEG-TRACE)
[2020-06-12 14:53] LABS: RBC,URINE 20-40 /HPF (0-2); WBC,URINE OCC /HPF (0-4)
[2020-06-12 14:54] LABS: BACTERIA,URINE 0 /HPF (0-FEW)
== END ==
LOC: SPEC 14:05
PROVIDERS: ATTEND Family Medicine
DX: R39.198 Other difficulties with micturition (principal)
CPT/HCPCS: 81001

== ENCOUNTER → 2020-06-26 | Outpatient (CLI) | payer MEDICARE, OTHER ==
[2020-06-26 15:30] LABS: BILIRUBIN,URINE NEGATIVE (NEG); CLARITY,URINE CLEAR; COLOR,URINE YELLOW; NITRITE,URINE NEGATIVE (NEG); PROTEIN,URINE 100 mg/dL (NEG-TRACE); UROBILINOGEN,URINE 0.2 mg/dL (0.2 mg/dL)
[2020-06-26 15:35] LABS: BACTERIA,URINE 0 /HPF (0-FEW); RBC,URINE TNTC /HPF (0-2)
== END ==
LOC: SPEC 15:09
PROVIDERS: ATTEND Family Medicine
DX: R31.9 Hematuria, unspecified (principal)
CPT/HCPCS: 81001; 87086

== ENCOUNTER → 2020-10-28 | Outpatient (CLI) | payer MEDICARE, OTHER ==
[2020-10-28 13:56] LABS: BILIRUBIN,URINE NEGATIVE (NEG); CLARITY,URINE CLEAR; COLOR,URINE YELLOW; NITRITE,URINE NEGATIVE (NEG); PROTEIN,URINE 100 mg/dL (NEG-TRACE); UROBILINOGEN,URINE 0.2 mg/dL (0.2 mg/dL)
[2020-10-28 14:34] LABS: BACTERIA,URINE 0 /HPF (0-FEW)
== END ==
LOC: SPEC 13:33
PROVIDERS: ATTEND Family Medicine
DX: R39.15 Urgency of urination (principal)
CPT/HCPCS: 81001; 87086

== ENCOUNTER → 2020-11-04 | Outpatient (CLI) | payer MEDICARE, OTHER | LOC: SPEC 08:16 | PROVIDERS: ATTEND Family Medicine | DX: Z12.5 Encounter for screening for malignant neoplasm of prostate (principal); R33.9 Retention of urine, unspecified | CPT/HCPCS: 36415; G0103 ==

== ENCOUNTER → 2020-11-27 | Outpatient (CLI) | payer MEDICARE, OTHER ==
[2020-11-27 07:07] LABS: BASO % 1 % (0-3); EOS # 0.3 x10^3/uL (0.0-0.7); EOS % 4 % (0-3); HEMATOCRIT 41.7 % (39.0-53.0); HEMOGLOBIN 14.4 g/dL (13.0-17.5); LYMPH # 1.7 x10^3/uL (1.0-4.8); LYMPH % 25 % (24-48); MEAN CORPUSCULAR HEMOGLOBIN 32 pg (25-35); MEAN CORPUSCULAR HGB CONC 35 g/dL (31-37); MEAN CORPUSCULAR VOLUME 92 fL (79-100); MONO # 0.5 x10^3/uL (0.0-1.1); MONO % 8 % (0-9); NEUT # 4.3 x10^3/uL (1.8-7.7); NEUT % 63 % (31-73); PLATELET COUNT 235 x10^3/uL (140-400); RED BLOOD COUNT 4.55 x10^6/uL (4.30-5.70); RED CELL DISTRIBUTION WIDTH 13.8 % (11.5-14.5); WHITE BLOOD COUNT 6.8 x10^3/uL (4.0-11.0)
[2020-11-27 07:35] LABS: ALBUMIN 3.1 g/dL (3.4-5.0); ALBUMIN/GLOBULIN RATIO 0.9 (1.0-1.7); CALCIUM 8.9 mg/dL (8.5-10.1); CREATININE 0.6 mg/dL (0.7-1.3); GFR 130.3; POTASSIUM 3.6 mmol/L (3.5-5.1); TOTAL BILIRUBIN 0.9 mg/dL (0.2-1.0); TOTAL PROTEIN 6.7 g/dL (6.4-8.2)
[2020-11-28 03:25] LABS: HEMOGLOBIN A1C 8.4 % (4.8-5.6)
== END ==
LOC: SPEC 03:33
PROVIDERS: ATTEND Family Medicine
DX: J44.9 Chronic obstructive pulmonary disease, unspecified (principal); I10 Essential (primary) hypertension
CPT/HCPCS: 36415; 80053; 83036; 85025

== ENCOUNTER → 2021-01-07 | Outpatient (CLI) | payer MEDICARE, OTHER ==
[2021-01-08 16:04] LABS: BASO % 0 % (0-3); EOS # 0.3 x10^3/uL (0.0-0.7); EOS % 4 % (0-3); HEMATOCRIT 43.5 % (39.0-53.0); HEMOGLOBIN 14.7 g/dL (13.0-17.5); LYMPH # 1.7 x10^3/uL (1.0-4.8); LYMPH % 23 % (24-48); MEAN CORPUSCULAR HEMOGLOBIN 32 pg (25-35); MEAN CORPUSCULAR HGB CONC 34 g/dL (31-37); MEAN CORPUSCULAR VOLUME 93 fL (79-100); MONO # 0.5 x10^3/uL (0.0-1.1); MONO % 7 % (0-9); NEUT # 4.7 x10^3/uL (1.8-7.7); NEUT % 66 % (31-73); PLATELET COUNT 279 x10^3/uL (140-400); RED BLOOD COUNT 4.68 x10^6/uL (4.30-5.70); RED CELL DISTRIBUTION WIDTH 13.8 % (11.5-14.5); WHITE BLOOD COUNT 7.2 x10^3/uL (4.0-11.0)
[2021-01-08 16:08] LABS: ALBUMIN 3.1 g/dL (3.4-5.0); ALBUMIN/GLOBULIN RATIO 0.8 (1.0-1.7); CALCIUM 9.1 mg/dL (8.5-10.1); CREATININE 0.6 mg/dL (0.7-1.3); POTASSIUM 3.5 mmol/L (3.5-5.1); TOTAL BILIRUBIN 1.8 mg/dL (0.2-1.0)
== END ==
LOC: LAB 11:51
PROVIDERS: ATTEND Internal Medicine Cardiovascular Disease
DX: I63.9 Cerebral infarction, unspecified (principal)
CPT/HCPCS: 36415; 80053; 85025

== ENCOUNTER → 2021-01-08 | Outpatient (CLI) | payer MEDICARE, OTHER ==
[2021-01-08 09:17] LABS: CHOLESTEROL/HDL RATIO 3.7
== END ==
LOC: SPEC 07:43
PROVIDERS: ATTEND Family Medicine
DX: E78.5 Hyperlipidemia, unspecified (principal)
CPT/HCPCS: 36415; 80061

== ENCOUNTER → 2021-01-12 | Outpatient (CLI) | payer MEDICARE, OTHER ==
--- NOTE | 2021-01-12 18:21 | RAD ---
MR#: [id number] Date of Study: 01/12/2021 Ordering Physician: ELA BUENROSTRO, Referring Physician: ELA BUENROSTRO, Tech: Arpan Medina MBA, RDMS, RVT, RDCS, RTR APPROVED REPORT Patient Location: OUT-PATIENT Laterality:Bilateral Indications CVA/TIA: Doppler Spectral Velocity Analysis Right Left pCCA 66/7 cm/spCCA 125/16 cm/s mCCA 69/7 cm/smCCA 98/14 cm/s dCCA 60/6 cm/sdCCA 69/9 cm/s Bulb 67/11 cm/sBulb 68/18 cm/s ECA 136/ cm/sECA 94/ cm/s pICA 69/14 cm/spICA 81/16 cm/s Mynor 51/10 cm/smICA 72/15 cm/s dICA 61/11 cm/sdICA 52/9 cm/s Vert. 53/ cm/sVert. 44/ cm/s Subcl. 98/ cm/sSubcl. 100/ cm/s ICA/CCA 1.00ICA/CCA 0.65 Findings Grayscale images of the bilateral carotid vessels demonstrates mild to moderate diffuse atheroscleros is. Overall based on spectral waveforms and velocities there is 0 to less than 50% stenosis in the bilate ral extracranial carotid vasculature. Bilateral ICA to CCA ratios are within normal limits. Bilateral vertebral velocities are within normal limits. Bilateral subclavian velocities are within normal limits. Critical Notification Critical Value: No <Conclusion> 1. No significant carotid occlusive disease bilateral Signed by : Ela Buenrostro, Electronically Approved : 01/12/2021 18:21:06
== END ==
LOC: US 14:20
PROVIDERS: ATTEND Internal Medicine Cardiovascular Disease
DX: I65.23 Occlusion and stenosis of bilateral carotid arteries (principal); I63.9 Cerebral infarction, unspecified
CPT/HCPCS: 93880

== ENCOUNTER → 2021-01-15 | Outpatient (CLI) | payer MEDICARE, OTHER ==
--- NOTE | 2021-01-16 12:01 | CARD ---
MR#: [id number] Date of Study: 01/15/2021 Ordering Physician: ELA BUENROSTRO, Referring Physician: ELA BUENROSTRO, Tech: Noy Gutierrez, [facility] APPROVED REPORT EXAM: Two-dimensional and M-mode echocardiogram with Doppler and color Doppler. Other Information Quality : PoorHR: 86bpm Technically limited study due to Patient in wheel chair INDICATION Aortic Valve Disease Surgery/Intervention Pacemaker: RISK FACTORS Hypertension 2D DIMENSIONS IVSd1.2 (0.7-1.1cm)Aortic Root(2D)3.3 (2.0-3.7cm) LVDd5.4 (3.9-5.9cm)LVOT Diameter2.0 (1.8-2.4cm) PWd1.2 (0.7-1.1cm)LVDs2.5 (2.5-4.0cm) FS (%) 53.3 %SV118.8 ml Aortic Valve AoV Peak Reji.321.8cm/sAoV VTI55.5cm AO Peak GR.31.0mmHgLVOT Peak Reji.105.3cm/s AO Mean GR.25mmHgAVA (VMAX)0.93cm2 Mitral Valve MV E Fpfrgxph24.5cm/sMV DECEL [id number] MV A Eqtvbrlo896.9cm/sE/A Ratio0.5 Pulmonary Valve PV Peak Cmtvkzfs69.6cm/s Tricuspid Valve TR P. Gxtkkmyg170ry/sRAP BWDLVYKN5ulWz TR Peak Gr.69ggHjTFGH45yuOt LEFT VENTRICLE The left ventricle is normal size. There is mild concentric left ventricular hypertrophy. The left ve ntricular systolic function is normal and the ejection fraction is within normal range. The Ejection Fraction is 55-60%. There is normal LV segmental wall motion. Transmitral Doppler flow pattern is Gra de I-abnormal relaxation pattern. RIGHT VENTRICLE The right ventricle is normal size. There is normal right ventricular wall thickness. The right ventr icular systolic function is normal. ATRIA The left atrium size is normal. The right atrium is not well visualized. AORTIC VALVE The aortic valve is calcified and displays decreased opening on a technically difficult study. Dopple r and Color Flow revealed no significant aortic regurgitation. Calculated aortic valve maximum pressu re gradient of 33 mmHg and mean pressure gradient of 23 mmHg. There is mild to moderate valvular aort ic stenosis. MITRAL VALVE The mitral valve is normal in structure and function. There is no evidence of mitral valve prolapse. There is no mitral valve stenosis. Doppler and Color Flow revealed trace mitral valve regurgitation. TRICUSPID VALVE The tricuspid valve is normal in structure and function. Doppler and Color Flow revealed mild tricusp id regurgitation with an estimated PAP of 35 mmHg. There is no tricuspid valve stenosis. PULMONIC VALVE The pulmonic valve is not well visualized. Doppler and Color Flow revealed no pulmonic valvular regur gitation. GREAT VESSELS The aortic root is normal in size. The IVC was not visualized. PERICARDIAL EFFUSION There is no evidence of significant pericardial effusion. Critical Notification Critical Value: No <Conclusion> The left ventricle is normal size. The left ventricular systolic function is normal and the ejection fraction is within normal range. The Ejection Fraction is 55-60%. There is mild concentric left ventricular hypertrophy. The aortic valve is calcified and displays decreased opening on a technically difficult study. Doppler and Color Flow revealed no significant aortic regurgitation. Calculated aortic valve maximum pressure gradient of 33 mmHg and mean pressure gradient of 23 mmHg. There is mild to moderate valvular aortic stenosis. Doppler and Color Flow revealed trace mitral valve regurgitation. Doppler and Color Flow revealed mild tricuspid regurgitation with an estimated PAP of 35 mmHg. Signed by : Aj Martinez MD Electronically Approved : 01/16/2021 12:01:04
== END ==
LOC: ECHO 09:46
PROVIDERS: ATTEND Internal Medicine Cardiovascular Disease
DX: I08.2 Rheumatic disorders of both aortic and tricuspid valves (principal)
CPT/HCPCS: 93306

== ENCOUNTER → 2021-02-20 | Outpatient (CLI) | payer MEDICARE, OTHER ==
[2021-02-20 23:24] LABS: HEMOGLOBIN A1C 7.8 % (4.8-5.6)
== END ==
LOC: SPEC 00:09
PROVIDERS: ATTEND Family Medicine
DX: E11.9 Type 2 diabetes mellitus without complications (principal)
CPT/HCPCS: 36415; 83036

== ENCOUNTER → 2021-03-13 | Outpatient (CLI) | payer MEDICARE, OTHER ==
[~2021-03-13] MED LIST changes: +AMIO200T6 PO; +APIX2.5T PO; +INSU100V6 SQ
[2021-03-13 08:15] LABS: BASO % 1 % (0-3); EOS # 0.2 x10^3/uL (0.0-0.7); EOS % 3 % (0-3); HEMATOCRIT 41.3 % (39.0-53.0); HEMOGLOBIN 14.1 g/dL (13.0-17.5); LYMPH # 1.6 x10^3/uL (1.0-4.8); LYMPH % 20 % (24-48); MEAN CORPUSCULAR HEMOGLOBIN 31 pg (25-35); MEAN CORPUSCULAR HGB CONC 34 g/dL (31-37); MEAN CORPUSCULAR VOLUME 92 fL (79-100); MONO # 0.4 x10^3/uL (0.0-1.1); MONO % 5 % (0-9); NEUT # 5.6 x10^3/uL (1.8-7.7); NEUT % 72 % (31-73); PLATELET COUNT 251 x10^3/uL (140-400); RED CELL DISTRIBUTION WIDTH 13.4 % (11.5-14.5); WHITE BLOOD COUNT 7.8 x10^3/uL (4.0-11.0)
[2021-03-13 08:21] LABS: CALCIUM 9.1 mg/dL (8.5-10.1); CREATININE 0.7 mg/dL (0.7-1.3); GFR 108.8; POTASSIUM 3.6 mmol/L (3.5-5.1)
== END ==
LOC: SPEC 05:42
PROVIDERS: ATTEND Family Medicine
DX: F32.9 Major depressive disorder, single episode, unspecified (principal)
CPT/HCPCS: 36415; 80048; 84443; 85025

== ENCOUNTER 2021-03-21 05:20 | Inpatient (IN) | payer MEDICARE, OTHER ==
[~2021-03-21] VITALS: Ht 165.1 cm; Wt 90.5 kg
[~2021-03-21 05:20] MED LIST changes: -AMIO200T6 PO; -APIX2.5T PO; -INSU100V6 SQ
[2021-03-21 05:40] LABS: BASO # 0.1 x10^3/uL (0.0-0.2); BASO % 1 % (0-3); EOS # 0.2 x10^3/uL (0.0-0.7); EOS % 2 % (0-3); HEMATOCRIT 39.3 % (39.0-53.0); HEMOGLOBIN 13.5 g/dL (13.0-17.5); LYMPH # 2.1 x10^3/uL (1.0-4.8); LYMPH % 18 % (24-48); MEAN CORPUSCULAR HEMOGLOBIN 31 pg (25-35); MEAN CORPUSCULAR HGB CONC 34 g/dL (31-37); MEAN CORPUSCULAR VOLUME 91 fL (79-100); MONO # 0.5 x10^3/uL (0.0-1.1); MONO % 5 % (0-9); NEUT # 8.6 x10^3/uL (1.8-7.7); NEUT % 75 % (31-73); PLATELET COUNT 269 x10^3/uL (140-400); RED BLOOD COUNT 4.31 x10^6/uL (4.30-5.70); RED CELL DISTRIBUTION WIDTH 13.9 % (11.5-14.5); WHITE BLOOD COUNT 11.5 x10^3/uL (4.0-11.0)
[2021-03-21] MEDS: MAGNESIUM SULFATE 2GM 50 ML IV ONE ×2 (05:47→06:00)
[2021-03-21 05:53] LABS: CALCIUM 8.8 mg/dL (8.5-10.1); CREATININE 0.5 mg/dL (0.7-1.3); GFR 160.4; POTASSIUM 3.6 mmol/L (3.5-5.1)
[2021-03-21 05:59] LABS: ALBUMIN 3.4 g/dL (3.4-5.0); TOTAL BILIRUBIN 1.8 mg/dL (0.2-1.0); TOTAL PROTEIN 6.9 g/dL (6.4-8.2)
[2021-03-21] MEDS ORDERED: AMIODARONE 150 MG in IV DEXTROSE 5% 100ML 100 ML IV ONE (06:00)
--- NOTE | 2021-03-21 06:03 | PHYS DOC ---
Past Medical History Past Medical History: Arthritis, COPD, Depression, Hypertension, Seizure, Stroke, UTI Additional Past Medical Histor: hyperlipidemia, bph, Past Surgical History: No Surgical History Smoking Status: Unknown if ever smoked Alcohol Use: None Drug Use: None General Adult EDM: Chief Complaint: DYSPNEA/RESPIRATORY DISTRESS HPI: HPI: Patient is a 80 year old male with past medical history of seizure copd hypertension presents for evaluation due to difficulty breathing. Nursing staff found patient with room oxygen saturation of 70% Patient states he woke up with SOB and felt nauseas. He denied any chest pain or palpitations. Upon EMS arrival patient was 97% on 15L NRB. EMS placed patient on CPAP with O2 sat of 99% on arrival. EMS ekg showed a sinus tachycardia. Shortly after arrival patient went into a wide complex tachycardia. Review of Systems: Review of Systems: Constitutional: Denies fever or chills. [] Eyes: Denies change in visual acuity. [] HENT: Denies nasal congestion or sore throat. [] Respiratory: Positive shortness of breath. [] Cardiovascular: Positve chest pain or edema. [] GI: Denies abdominal pain, nausea, vomiting, bloody stools or diarrhea. [] : Denies dysuria. [] Musculoskeletal: Denies back pain or joint pain. [] Integument: Denies rash. [] Neurologic: Denies headache, focal weakness or sensory changes. [] Endocrine: Denies polyuria or polydipsia. [] Lymphatic: Denies swollen glands. [] Psychiatric: Denies depression or anxiety. [] Heart Score: C/O Chest Pain: N/A Risk Factors: Risk Factors: DM, Current or recent (<one month) smoker, HTN, HLP, family history of CAD, obesity. Risk Scores: Score 0 - 3: 2.5% MACE over next 6 weeks - Discharge Home Score 4 - 6: 20.3% MACE over next 6 weeks - Admit for Clinical Observation Score 7 - 10: 72.7% MACE over next 6 weeks - Early Invasive Strategies Current Medications: Current Medications Medications (Trade) Dose Ordered Sig/Darius Start Time Stop Time Status Last Admin Dose Admin Amiodarone HCl 150 mg/Dextrose 103 ml @ 618 mls/hr 1X ONCE 03/21/21 06:00 03/21/21 06:09 Magnesium Sulfate 50 ml @ 25 mls/hr 1X ONCE 03/21/21 06:00 03/21/21 07:59 03/21/21 05:47 25 MLS/HR Allergies: Allergies: Allergies Coded Allergies Type Severity Reaction Last Updated Verified No Known Drug Allergies 02/21/18 No Physical Exam: PE: General: alert, acute distress. Skin: warm, dry and intact, no erythema, no rash. HENT: bilateral external ears normal, oropharynx moist, nose normal. Head:: Normocephalic, atraumatic. Neck: Trachea midline. Eyes: EOMI, Normal conjunctiva, No drainage CARDIOVASCULAR: Tachycardia RESPIRATORY: Acute respiratory distress tachypneic Back: Full range of motion. MUSCULOSKELETAL: Full range of motion of bilateral upper and lower extremities. GASTROINTESTINAL: Abdomen soft without rebound or guarding. NEUROLOGICAL: Alert and noted to person, place and time. No neurological deficits observed Psychiatric: Cooperative. Normal judgment Current Patient Data: Labs: Laboratory Tests Test 03/21/21 05:28 White Blood Count 11.5 x10^3/uL (4.0-11.0) H Red Blood Count 4.31 x10^6/uL (4.30-5.70) Hemoglobin 13.5 g/dL (13.0-17.5) Hematocrit 39.3 % (39.0-53.0) Mean Corpuscular Volume 91 fL (79-100) Mean Corpuscular Hemoglobin 31 pg (25-35) Mean Corpuscular Hemoglobin Concent 34 g/dL (31-37) Red Cell Distribution Width 13.9 % (11.5-14.5) Platelet Count 269 x10^3/uL (140-400) Neutrophils (%) (Auto) 75 % (31-73) H Lymphocytes (%) (Auto) 18 % (24-48) L Monocytes (%) (Auto) 5 % (0-9) Eosinophils (%) (Auto) 2 % (0-3) Basophils (%) (Auto) 1 % (0-3) Neutrophils # (Auto) 8.6 x10^3/uL (1.8-7.7) H Lymphocytes # (Auto) 2.1 x10^3/uL (1.0-4.8) Monocytes # (Auto) 0.5 x10^3/uL (0.0-1.1) Eosinophils # (Auto) 0.2 x10^3/uL (0.0-0.7) Basophils # (Auto) 0.1 x10^3/uL (0.0-0.2) Sodium Level 131 mmol/L (136-145) L Potassium Level 3.6 mmol/L (3.5-5.1) Chloride Level 95 mmol/L (98-107) L Carbon Dioxide Level 25 mmol/L (21-32) Anion Gap 11 (6-14) Blood Urea Nitrogen 11 mg/dL (8-26) Creatinine 0.5 mg/dL (0.7-1.3) L Estimated GFR (Cockcroft-Gault) 160.4 BUN/Creatinine Ratio 22 (6-20) H Glucose Level 200 mg/dL (70-99) H Calcium Level 8.8 mg/dL (8.5-10.1) Total Bilirubin Pending Aspartate Amino Transferase (AST) Pending Alanine Aminotransferase (ALT) Pending Alkaline Phosphatase Pending Total Protein Pending Albumin Pending Albumin/Globulin Ratio Pending Laboratory Tests 03/21/21 05:28 Laboratory Tests 03/21/21 05:28 EKG: EKG: [] Performed at 0536 Rate 122 wide complex tachycardia No acute PA Performed at 526 Rate 130 Wide-complex tachycardia No acute PA Radiology/Procedures: Radiology/Procedures: [] Course & Med Decision Making: Course & Med Decision Making Pertinent Labs and Imaging studies reviewed. (See chart for details) []Patient evaluated evaluated for chief complaint. Work-up consisted of laboratory analysis radiologic imaging and ekg. Results reviewed and discussed Shortly after arrival patient placed on Bipap with O2 sat of 100% Patient went from a sinus tachycardia to a wide complex tachycardia Treatment with Amioderone and Magnesium Admitted to hospitalist with cardiology consult. Dragon Disclaimer: Dragon Disclaimer: This electronic medical record was generated, in whole or in part, using a voice recognition dictation system. Departure Departure Referrals: GERMAN HE MD (PCP) AYSE RAMIREZ DO Mar 21, 2021 06:03
[2021-03-21] MEDS ORDERED: MAGNESIUM SULFATE 1GM 100 ML IV ONE (06:30)
--- NOTE | 2021-03-21 06:48 | RAD ---
EXAM: CHEST ONE VIEW. HISTORY: Shortness of breath. COMPARISON: 04/07/2019. FINDINGS: A frontal view of the chest is obtained. A left-sided pacemaker has its leads in the right atrium and right ventricle. There are interstitial opacities on the right greater than left. There our small bilateral pleural ef fusions. There is no pneumothorax. The heart is mildly enlarged. There are atherosclerotic calcificat ions of the aorta. IMPRESSION: 1. Mild pulmonary edema versus atypical pneumonia. Small bilateral pleural effusions. Electronically signed by: Matty Estes MD (03/21/2021 6:45 AM) [facility]
[2021-03-21] MEDS: AMIODARONE 450 MG in IV DEXTROSE 5% 250 ML IV PRN ×2 (06:50→22:18)
[2021-03-21] MEDS ORDERED: FUROSEMIDE 40 MG/4 ML VIAL. IVP ONE (07:30)
[2021-03-21 10:00] VITALS: BP 156/92
--- NOTE | 2021-03-21 10:00 | NUR ---
ADMISSION PT ARRIVES ON THE FLOOR FROM ED BY RENNY. HE IS NO LONGER ON BIPAP WAS REPORTED, NOW ON 6L/NC, WITH SATURATIONS IN THE 90'S. HE HAS AN AMIODARONE GTT INFUSING. TRANSFERRED BY DRAW SHEET FROM [facility] TO BED. SETTLED INTO ROOM, ORIENTED TO SITUATION ET HOSPITAL. VS ASSESSED, TELE PLACED. ABLE TO MAKE NEEDS KNOWN, CALL LIGHT IN REACH.
--- NOTE | 2021-03-21 11:04 | EKG ---
[facility] [address] [place] [address] Test Date: 2021-03-21 Test Time: 05:36:40 Pat Name: MISBAH [place] Department: Room: Gender: M Patient Case Coordinator: : 1940 Requested By: AYSE RAMIREZ Order Number: [id number] Reading MD: Measurements Intervals [place] Rate: 122 P: -100 DE: 120 QRS: -90 QRSD: 200 T: 85 QT: 350 QTc: 500 Interpretive Statements SUPRAVENTRICULAR RHYTHM ABNORMAL LEFT AXIS DEVIATION NON SPECIFIC INTRAVENTRICULAR BLOCK RVH WITH REPOLARIZATION ABNORMALITY QRS(T) CONTOUR ABNORMALITY CONSIDER ANTEROSEPTAL INFARCT CONSISTENT WITH INFERIOR INFARCT POSSIBLY RECENT ABNORMAL ECG RI6.01 No previous ECG available for comparison
[2021-03-21] MEDS ORDERED: INSU100I13 SQ (13:09)
[2021-03-21] MEDS ORDERED: INSU100V6 SQ (13:09)
[2021-03-21] MEDS ORDERED: FLU VACC QUAD 21-22 (6MOS+) PF 0.5 ML SYRINGE. VAX IM ONE (14:00)
[2021-03-21 15:01] VITALS: BP 149/77
[2021-03-21] MEDS ORDERED: APIX2.5T PO (15:26)
[2021-03-21] MEDS ORDERED: AMIO200T6 PO (15:26)
--- NOTE | 2021-03-21 17:56 | NUR ---
NURSING ADMISSION COMPLETED BY HELPER NURSE. MEDICATION RECONCILIATION COMPLETED, AWAITING PHYSICIAN CONTINUATION OF HOME MEDICATIONS. PT WAS AT BEDSIDE FOR ABOUT AN HOUR THIS AFTERNOON.
[2021-03-21 19:00] VITALS: BP 150/94
[2021-03-21 22:59] VITALS: BP 142/83
[2021-03-22 02:41] VITALS: BP 181/85
--- NOTE | 2021-03-22 03:27 | EKG ---
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
[2021-03-22 07:20] VITALS: BP 169/86
[2021-03-22] MEDS ORDERED: DEXTROSE 50% 25 GM / 50ML DISP.SYRIN. IV PRN (09:15)
[2021-03-22] MEDS ORDERED: guaiFENesin DM 200MG/20MG 10 ML SYRUP PO PRN (09:30)
[2021-03-22] MEDS: TAMSULOSIN 0.4 MG CAP.ER.24H. PO SCH (10:00)
[2021-03-22] MEDS: metFORMIN XR 500 MG TAB.ER.24H PO SCH (10:00)
[2021-03-22] MEDS: MULTIVITAMIN with MINERAL TABLET. PO SCH (10:00)
[2021-03-22] MEDS: AMIODARONE HCL 200 MG TABLET. PO SCH (10:01)
[2021-03-22] MEDS: CETIRIZINE HCL 10 MG TABLET. PO SCH (10:01)
[2021-03-22] MEDS: FINASTERIDE 5 MG TABLET. PO SCH (10:01)
[2021-03-22] MEDS: APIXABAN 2.5 MG TABLET. PO SCH ×2 (10:01→20:38)
[2021-03-22] MEDS: CITALOPRAM 10 MG TABLET. PO SCH (10:01)
[2021-03-22] MEDS: POLYETHYLENE GLYCOL 3350 17 GM PACKET. PO SCH (10:01)
[2021-03-22] MEDS: INSULIN LISPRO 300 UNITS/3 ML VIAL. SQ SCH ×2 (10:03→17:11)
[2021-03-22 10:28] VITALS: BP 166/94
[2021-03-22] MEDS ORDERED: FUROSEMIDE 20 MG/2 ML VIAL. IVP ONE (11:00)
[2021-03-22] MEDS ORDERED: PIP/TAZO PER PHARMACY MC PRN (13:45)
--- NOTE | 2021-03-22 14:14 | PDOC2 ---
CONSULT Date of Consult Date of Consult DATE: 03/22/21 TIME: 14:07 Reason for Consult Reason for Consult: Heart failure, permanent pacemaker Referring Physician Referring Physician: Dr. Sidhu Identification/Chief Complaint Chief Complaint Shortness of breath Source Source: Chart review, Patient History of Present Illness Reason for Visit: The patient is a 80-year-old male who was admitted from the emergency room for increasing shortness of breath. The patient denied any chest pain. He has a history of COPD and was treated with pulmonary medications and eventually BiPAP. His EKG showed a paced rhythm with a rate of 1 20-1 30 which is now resolved into a rate of approximately 80 with no paced beats. After treatment overnight the patient is reportedly more comfortable but remains confused. He again however denies any episodes of chest discomfort. Past Medical History Cardiovascular: CHF, HTN, Hyperlipidemia Pulmonary: No pertinent hx CENTRAL NERVOUS SYSTEM: CVA, Seizure GI: No pertinent hx Heme/Onc: Cancer Hepatobiliary: No pertinent hx Psych: Depression Musculoskeletal: Osteoarthritis, Other Rheumatologic: Other Infectious disease: No pertinent hx Renal/: UTI, Benign prostatic enlarg., Bladder Ca. Endocrine: Diabetes Past Surgical History Past Surgical History: Other (Pacemaker placement.) Family History Family History: Coronary Artery Disease, Hypertension, Osteo Arthiritis Social History ALCOHOL: none Drugs: None Lives: Longterm Current Problem List Problem List Problems Medical Problems: (1) Wide-complex tachycardia Status: Acute Current Medications Current Medications Current Medications Amiodarone HCl 150 mg/Dextrose 103 ml @ 618 mls/hr 1X ONCE IV Last administered on 03/21/21at 05:57; Start 03/21/21 at 06:00; Stop 03/21/21 at 06:09; Status DC Magnesium Sulfate 50 ml @ 25 mls/hr 1X ONCE IV ; Start 03/21/21 at 06:00; Stop 03/21/21 at 07:59; Status DC Amiodarone HCl 450 mg/Dextrose 259 ml @ 0 mls/hr CONT PRN IV SEE I/O RECORD Last administered on 03/21/21at 22:18; Start 03/21/21 at 06:30; Stop 03/22/21 at 06:29; Status DC Magnesium Sulfate/ Dextrose 100 ml @ 100 mls/hr 1X ONCE IV Last administered on 03/21/21at 05:30; Start 03/21/21 at 06:30; Stop 03/21/21 at 07:29; Status DC Furosemide (Lasix) 40 mg 1X ONCE IVP Last administered on 03/21/21at 08:08; Start 03/21/21 at 07:30; Stop 03/21/21 at 07:31; Status DC Influenza Virus Vaccine Quadrival (Flulaval Quad [id number] Syringe) 0.5 ml ONCE ONCE VAX IM Last administered on 03/22/21at 10:00; Start 03/21/21 at 14:00; Stop 03/21/21 at 14:01; Status DC Acetaminophen (Tylenol) 325 mg PRN Q4HRS PRN PO MILD PAIN / TEMP > 100.3'F; Start 03/22/21 at 09:15 Amiodarone HCl (Cordarone) 200 mg DAILY PO Last administered on 03/22/21at 10:01; Start 03/22/21 at 10:00 Amlodipine Besylate (Norvasc) 5 mg DAILY PO Last administered on 03/22/21at 10:01; Start 03/22/21 at 10:00 Apixaban (Eliquis) 2.5 mg BID PO Last administered on 03/22/21at 10:01; Start 03/22/21 at 10:00 Atorvastatin Calcium (Lipitor) 20 mg QHS PO ; Start 03/22/21 at 21:00 Citalopram Hydrobromide (CeleXA) 10 mg DAILY PO Last administered on 03/22/21at 10:01; Start 03/22/21 at 10:00 Finasteride (Proscar) 5 mg DAILY PO Last administered on 03/22/21at 10:01; Start 03/22/21 at 10:00 Metformin HCl (Glucophage Xr) 500 mg DAILYWBKFT PO Last administered on 03/22/21at 10:00; Start 03/22/21 at 10:00 Polyethylene Glycol (miraLAX PACKET) 17 gm DAILY PO Last administered on 03/22/21at 10:01; Start 03/22/21 at 10:00 Tamsulosin HCl (Flomax) 0.4 mg DAILY PO Last administered on 03/22/21at 10:00; Start 03/22/21 at 10:00 Guaifenesin (Robitussin Dm) 10 ml PRN Q4HRS PRN PO COUGH; Start 03/22/21 at 09:30 Non-Formulary Medication (Insulin Glargine,Hum.rec.anlog (Lantus Solostar)) 35 unit QHS SQ ; Start 03/22/21 at 21:00; Status UNV Cetirizine HCl (ZyrTEC) 10 mg DAILY PO Last administered on 03/22/21at 10:01; Start 03/22/21 at 10:00 Multivitamins (Thera M Plus) 1 tab DAILY PO Last administered on 03/22/21at 10:00; Start 03/22/21 at 10:00 Insulin Glargine (Lantus Syringe) 35 unit QHS SQ ; Start 03/22/21 at 21:00 Insulin Human Lispro (HumaLOG) 0-7 UNITS TIDWMEALS SQ Last administered on 03/22/21at 10:03; Start 03/22/21 at 12:00 Dextrose (Dextrose 50%-Water Syringe) 12.5 gm PRN Q15MIN PRN IV SEE COMMENTS; Start 03/22/21 at 09:15 Furosemide (Lasix) 20 mg 1X ONCE IVP Last administered on 03/22/21at 10:54; Start 03/22/21 at 11:00; Stop 03/22/21 at 11:01; Status DC Methylprednisolone Sodium Succinate (SOLU-Medrol 40MG VIAL) 40 mg BID IV ; Start 03/22/21 at 21:00 Piperacillin Sod/ Tazobactam Sod (Zosyn Per Pharmacy) 1 each PRN DAILY PRN MC SEE COMMENTS; Start 03/22/21 at 13:45; Status UNV Albuterol/ Ipratropium (Duoneb) 3 ml RTQID NEB ; Start 03/22/21 at 16:00 Active Scripts Active Humalog (Insulin Lispro) 100 Unit/1 Ml Insuln.pen 0 Units SQ TIDWMEALS 30 Days Glucophage Xr (Metformin Hcl) 500 Mg Tab.er.24h 500 Mg PO DAILYWBKFT 30 Days Cefdinir 300 Mg Capsule 300 Mg PO BID 7 Days Reported Eliquis (Apixaban) 2.5 Mg Tablet 2.5 Mg PO BID Amiodarone Hcl 200 Mg Tablet 1 Tab PO DAILY Humalog (Insulin Lispro) 100 Unit/1 Ml Vial 4 Unit SQ TIDAC Lantus Solostar (Insulin Glargine,Hum.rec.anlog) 100 Unit/1 Ml Insuln.pen 35 Unit SQ QHS Tylenol (Acetaminophen) 325 Mg Tablet 325 Mg PO PRN Q4HRS PRN Levetiracetam 500 Mg Tablet 1,000 Mg PO BID Miralax (Polyethylene Glycol 3350) 17 Gm Powd.pack 1 Packet PO DAILY Flomax (Tamsulosin Hcl) 0.4 Mg Cap.er.24h 1 Cap PO DAILY Multivitamins (Multivitamin) 1 Each Tablet 1 Tab PO DAILY Norvasc (Amlodipine Besylate) 5 Mg Tablet 1 Tab PO DAILY Atorvastatin Calcium 20 Mg Tablet 1 Tab PO DAILY Gabapentin 300 Mg Capsule 300 Mg PO PRN QHS PRN Proscar (Finasteride) 5 Mg Tablet 1 Tab PO DAILY Voltaren (Diclofenac Sodium) 100 Gm Gel..gram. 2 Gm TP QID Claritin (Loratadine) 10 Mg Tablet 1 Tab PO DAILY Citalopram Hbr (Citalopram Hydrobromide) 10 Mg Tablet 1 Tab PO DAILY Robitussin Cough-Chest Dm Liq (Guaifenesin/Dextromethorphan) 237 Ml Liquid 10 Ml PO PRN Q4HRS PRN Nystatin 15 Gm Cream..g. 1 Mainor TP PRN BID PRN Allergies Allergies: Coded Allergies: No Known Drug Allergies (Unverified , 02/21/18) ROS Respiratory: YES: Shortness of breath, SOB with excertion Physical Exam General: mild distress HEENT: Atraumatic Lungs: Other (Mildly decreased breath sounds) Heart: Regular rate Abdomen: Normal bowel sounds Vitals VITALS Vital Signs Date Time Temp Pulse Resp B/P (MAP) Pulse Ox O2 Delivery O2 Flow Rate FiO2 03/22/21 11:53 91 Nasal Cannula 3.0 03/22/21 10:28 98.0 80 24 166/94 (118) 98.0 Labs Labs Laboratory Tests Test 03/21/21 05:28 03/21/21 06:30 03/22/21 08:27 03/22/21 11:18 White Blood Count 11.5 x10^3/uL (4.0-11.0) Red Blood Count 4.31 x10^6/uL (4.30-5.70) Hemoglobin 13.5 g/dL (13.0-17.5) Hematocrit 39.3 % (39.0-53.0) Mean Corpuscular Volume 91 fL (79-100) Mean Corpuscular Hemoglobin 31 pg (25-35) Mean Corpuscular Hemoglobin Concent 34 g/dL (31-37) Red Cell Distribution Width 13.9 % (11.5-14.5) Platelet Count 269 x10^3/uL (140-400) Neutrophils (%) (Auto) 75 % (31-73) Lymphocytes (%) (Auto) 18 % (24-48) Monocytes (%) (Auto) 5 % (0-9) Eosinophils (%) (Auto) 2 % (0-3) Basophils (%) (Auto) 1 % (0-3) Neutrophils # (Auto) 8.6 x10^3/uL (1.8-7.7) Lymphocytes # (Auto) 2.1 x10^3/uL (1.0-4.8) Monocytes # (Auto) 0.5 x10^3/uL (0.0-1.1) Eosinophils # (Auto) 0.2 x10^3/uL (0.0-0.7) Basophils # (Auto) 0.1 x10^3/uL (0.0-0.2) Sodium Level 131 mmol/L (136-145) Potassium Level 3.6 mmol/L (3.5-5.1) Chloride Level 95 mmol/L (98-107) Carbon Dioxide Level 25 mmol/L (21-32) Anion Gap 11 (6-14) Blood Urea Nitrogen 11 mg/dL (8-26) Creatinine 0.5 mg/dL (0.7-1.3) Estimated GFR (Cockcroft-Gault) 160.4 BUN/Creatinine Ratio 22 (6-20) Glucose Level 200 mg/dL (70-99) Calcium Level 8.8 mg/dL (8.5-10.1) Total Bilirubin 1.8 mg/dL (0.2-1.0) Aspartate Amino Transf (AST/SGOT) 33 U/L (15-37) Alanine Aminotransferase (ALT/SGPT) 36 U/L (16-63) Alkaline Phosphatase 78 U/L (46-116) Troponin I Quantitative < 0.017 ng/mL (0.000-0.055) RI-Kwc-H-Type Natriuretic Peptide 331 pg/mL (0-449) Total Protein 6.9 g/dL (6.4-8.2) Albumin 3.4 g/dL (3.4-5.0) Albumin/Globulin Ratio 1.0 (1.0-1.7) SARS-CoV-2 RNA (LAURA) Negative (Negative) SARS-CoV-2 Antigen (Rapid) Negative (NEGATIVE) Glucose (Fingerstick) 184 mg/dL (70-99) 202 mg/dL (70-99) Laboratory Tests Test 03/22/21 08:27 03/22/21 11:18 Glucose (Fingerstick) 184 mg/dL (70-99) 202 mg/dL (70-99) Images Images Chest x-ray with interstitial opacities right greater than left and small bilateral pleural effusions. A pacemaker is present. Assessment/Plan Assessment/Plan 1. Respiratory failure. History of significant COPD and possibly heart failure. Patient is a limited historian. We will continue pulmonary medications. Will check old records. Initial EKG as above. Initial troponin normal at less than 0.017 with a BNP of 331. The patient is improved today symptomatically. 2. Permanent pacemaker. Will check records and obtain clay processing labourer and interrogate the device. 3. Reported history of hyperlipidemia. Will check lab. 4. History of a probable CVA and a possible seizure disorder. Continue present treatments and attempt to find further records. 4. Elevated glucose of 200. Continue present treatments and monitor. OLIMPIA ROMERO MD Mar 22, 2021 14:14
--- NOTE | 2021-03-22 14:32 | HP ---
ADMIT DATE: 03/21/2021 CHIEF COMPLAINT: Shortness of breath. HISTORY OF PRESENT ILLNESS: The patient is a pleasant 80-year-old male who has COPD and congestive heart failure and a previous stroke among other things. Basically, he presented with shortness of breath, was noted to have an O2 sat around 70%; it woke him up; he felt nauseated. EMS brought him to the hospital and he was on a 100% nonrebreather. He was also placed on CPAP when he got to the ER. His EKG showed some sinus tachycardia. The patient has now been admitted to the medical floor, where we are treating him for his COPD and CHF. PAST MEDICAL HISTORY: COPD, CHF, stroke, left-sided hemiparesis, seizures, hypertension, UTI, hyperlipidemia, BPH. ALLERGIES: None. FAMILY HISTORY: Diabetes. SOCIAL HISTORY: He is retired. 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 He does not drink, smoke or take drugs. MEDICATIONS: Reviewed, please refer to the MRAD. REVIEW OF SYSTEMS: GENERAL: No history of weight change, weakness or fevers. SKIN: No bruising, hair changes or rashes. EYES: No blurred, double or loss of vision. NOSE AND THROAT: No history of nosebleeds, hoarseness or sore throat. HEART: No history of palpitations, chest pain or shortness of breath on exertion. PULMONARY: He complains of shortness of breath. GASTROINTESTINAL: Denies changes in appetite, nausea, vomiting, diarrhea or constipation. GENITOURINARY: No history of frequency, urgency, hesitancy or nocturia. NEUROLOGIC: He complains of left hemiparesis. PSYCHIATRIC: No history of panic, anxiety or depression. ENDOCRINE: No history of heat or cold intolerance, polyuria or polydipsia. EXTREMITIES: Denies muscle weakness, joint pain, pain on walking or stiffness. PHYSICAL EXAMINATION: VITALS: Within normal limits and are stable. GENERAL: He is weak. HEENT: Normal cephalic atraumatic, external auditory canals are patent. EYES: Extraocular muscles are intact, pupils are equally round and reactive to light and accommodation. MUSCULOSKELETAL: Well developed, well nourished, good range of motion. ENDOCRINE: No thyromegaly was palpated. LYMPHATICS: No cervical chain or axillary nodes were noted. HEMATOPOIETIC: No bruising. NECK: Supple, no JVD, no thyromegaly was noted. PULMONARY: He has bibasilar crackles. HEART: RRR, S1, S2 present. Peripheral pulses intact, no obvious murmurs were noted. ABDOMEN: Soft, nontender. Positive bowel sounds no organomegaly, normal bowel sounds. EXTREMITIES: Without any cyanosis, clubbing, or edema. Pedal pulses intact, Homans sign is negative. NEUROLOGIC: He has a left hemiparesis. PSYCHIATRIC: He is a little depressed. SKIN: No ulcerations or rashes, good skin turgor, no jaundice. VASCULAR: Good capillary refill, neurovascular bundle appears to be intact. LABORATORY DATA: White count 11, hemoglobin 13, platelets 269. Electrolytes: Sodium 131, potassium 3.6, chloride 95, bicarb 25, BUN 11, creatinine 0.5, glucose is 200. DIAGNOSTIC DATA: Chest x-ray shows pulmonary congestion versus atypical pneumonia. ASSESSMENT AND PLAN: Respiratory failure. The patient has been admitted. We ruled out COVID-19. We have consulted Cardiology. Home meds. Deep vein thrombosis prophylaxis. Full code. He received a flu vaccine. He was on amiodarone drip, we have titrated that off. He is now on p.o. amiodarone, IV Lasix, IV antibiotics, DuoNebs, IV steroids. [facility] unit evaluation. Long-term prognosis is guarded. NATALYA DR: Rubi TID: [id number]
[2021-03-22 14:50] VITALS: BP 144/81
[2021-03-22] MEDS: PIPERACILLIN/TAZOBACTAM 3.375 GM in IV NORMAL SALINE 50ML 50 ML IV SCH ×3 (15:06→23:56)
--- NOTE | 2021-03-22 15:06 | NUR ---
Request for PT/OT services After review of medical chart and speaking to pt., pt. would benefit from PT/OT services at this time. Please issue PT/OT Evaluation and Rx orders if you agree.
[2021-03-22 19:15] VITALS: BP 151/86
[2021-03-22] MEDS: methylPREDNISolone SOD SUCC PF 40 MG/ML VIAL. IV SCH (20:38)
[2021-03-22] MEDS: ATORVASTATIN CALCIUM 20 MG TABLET PO SCH (20:38)
[2021-03-22] MEDS ORDERED: INSULIN GLARGINE HUM REC ANLOG 35 UNIT SQ SCH (21:00)
[2021-03-22] MEDS: INSULIN GLARGINE SYRINGE. SQ SCH (21:00)
[2021-03-22] MEDS: IPRATRPIUM/ALBUTEROL 0.5/2.5MG 3 ML NEBU. NEB SCH (21:17)
[2021-03-22 22:20] VITALS: BP 101/58
[2021-03-22 22:44] LABS: BASE EXCESS ABG -1 mmol/L (-3-3); HCO3 ABG 24 mmol/L (21-28); PCO2 ABG 44 mmHg (35-46); PO2 ABG 186 mmHg (65-108)
[2021-03-22 22:45] LABS: FIO2 ABG 65 (BIPAP)
[2021-03-22 22:47] LABS: SAT O2 ABG 99 % (92-99)
[2021-03-23 02:40] VITALS: BP 139/81
[2021-03-23 04:57] LABS: BASO % 0 % (0-3); EOS % 0 % (0-3); HEMATOCRIT 39.6 % (39.0-53.0); HEMOGLOBIN 13.5 g/dL (13.0-17.5); LYMPH # 0.5 x10^3/uL (1.0-4.8); LYMPH % 5 % (24-48); MEAN CORPUSCULAR HEMOGLOBIN 31 pg (25-35); MEAN CORPUSCULAR HGB CONC 34 g/dL (31-37); MEAN CORPUSCULAR VOLUME 92 fL (79-100); MONO # 0.1 x10^3/uL (0.0-1.1); MONO % 1 % (0-9); NEUT # 9.7 x10^3/uL (1.8-7.7); NEUT % 94 % (31-73); PLATELET COUNT 267 x10^3/uL (140-400); RED BLOOD COUNT 4.33 x10^6/uL (4.30-5.70); RED CELL DISTRIBUTION WIDTH 13.8 % (11.5-14.5); WHITE BLOOD COUNT 10.3 x10^3/uL (4.0-11.0)
[2021-03-23 05:31] LABS: CHOLESTEROL/HDL RATIO 3.1
[2021-03-23] MEDS: PIPERACILLIN/TAZOBACTAM 3.375 GM in IV NORMAL SALINE 50ML 50 ML IV SCH ×2 (05:40→13:14)
[2021-03-23 07:00] VITALS: BP 134/84
[2021-03-23] MEDS: IPRATRPIUM/ALBUTEROL 0.5/2.5MG 3 ML NEBU. NEB SCH ×4 (08:00→20:04)
[2021-03-23 08:43] LABS: % LYMPHS 8 % (24-48); % SEGS 92 % (35-66); PLT ESTIMATE ADEQUATE (ADEQUATE)
[2021-03-23] MEDS: APIXABAN 2.5 MG TABLET. PO SCH ×2 (08:54→20:20)
[2021-03-23] MEDS: CITALOPRAM 10 MG TABLET. PO SCH (08:54)
[2021-03-23] MEDS: CETIRIZINE HCL 10 MG TABLET. PO SCH (08:55)
[2021-03-23] MEDS: AMIODARONE HCL 200 MG TABLET. PO SCH (08:55)
[2021-03-23] MEDS: metFORMIN XR 500 MG TAB.ER.24H PO SCH (08:55)
[2021-03-23] MEDS: MULTIVITAMIN with MINERAL TABLET. PO SCH (08:55)
[2021-03-23] MEDS: TAMSULOSIN 0.4 MG CAP.ER.24H. PO SCH (08:55)
[2021-03-23] MEDS: FINASTERIDE 5 MG TABLET. PO SCH (08:55)
[2021-03-23] MEDS: LACTOBACILLUS RHAMNOSUS GG 1 CAPSULE. PO SCH ×2 (08:56→20:19)
[2021-03-23] MEDS: POLYETHYLENE GLYCOL 3350 17 GM PACKET. PO SCH (08:56)
[2021-03-23] MEDS: methylPREDNISolone SOD SUCC PF 40 MG/ML VIAL. IV SCH ×2 (08:56→20:39)
[2021-03-23] MEDS: INSULIN LISPRO 300 UNITS/3 ML VIAL. SQ SCH ×3 (09:14→18:04)
[2021-03-23 11:00] VITALS: BP 137/74
--- NOTE | 2021-03-23 11:44 | NUR ---
SS following for discharge planning. SS reviewed pt chart and discussed with pt RN. Pt is LTC resident from [facility], ; fax [phone]. COVID19 negative. Pt has been vaccinated. PT/OT ordered. Pt on IV Solu-Medrol and IV Zosyn. Pt is able to return when medically ready. SS will continue to follow for discharge planning.
--- NOTE | 2021-03-23 12:31 | PDOC ---
JACKELIN SALAS GAS TENDER 03/23/21 1231: CARDIO Progress Notes Date and Time Date of Service 03/23/21 Time of Evaluation 1230 Subjective Subjective: No Chest Pain, No Palpitations, Other (mild SOA) Vitals Vitals Vital Signs Date Time Temp Pulse Resp B/P (MAP) Pulse Ox O2 Delivery O2 Flow Rate FiO2 03/23/21 08:56 120 139/81 03/23/21 08:52 96 Nasal Cannula 5.0 03/23/21 07:00 97.1 22 97.1 Weight Weight [ ] Input and Output Intake and Output Intake and Output 03/23/21 07:00 Intake Total 1040 ml Output Total 1150 ml Balance -110 ml Intake Oral 1040 ml Output Urine Total 1150 ml # Voids 3 # Bowel Movements 1 Laboratory Labs Laboratory Tests Test 03/22/21 17:01 03/22/21 20:42 03/23/21 04:15 03/23/21 07:36 Glucose (Fingerstick) 186 mg/dL (70-99) 158 mg/dL (70-99) 202 mg/dL (70-99) White Blood Count 10.3 x10^3/uL (4.0-11.0) Red Blood Count 4.33 x10^6/uL (4.30-5.70) Hemoglobin 13.5 g/dL (13.0-17.5) Hematocrit 39.6 % (39.0-53.0) Mean Corpuscular Volume 92 fL (79-100) Mean Corpuscular Hemoglobin 31 pg (25-35) Mean Corpuscular Hemoglobin Concent 34 g/dL (31-37) Red Cell Distribution Width 13.8 % (11.5-14.5) Platelet Count 267 x10^3/uL (140-400) Neutrophils (%) (Auto) 94 % (31-73) Lymphocytes (%) (Auto) 5 % (24-48) Monocytes (%) (Auto) 1 % (0-9) Eosinophils (%) (Auto) 0 % (0-3) Basophils (%) (Auto) 0 % (0-3) Neutrophils # (Auto) 9.7 x10^3/uL (1.8-7.7) Lymphocytes # (Auto) 0.5 x10^3/uL (1.0-4.8) Monocytes # (Auto) 0.1 x10^3/uL (0.0-1.1) Eosinophils # (Auto) 0.0 x10^3/uL (0.0-0.7) Basophils # (Auto) 0.0 x10^3/uL (0.0-0.2) Segmented Neutrophils % 92 % (35-66) Lymphocytes % 8 % (24-48) Platelet Estimate Adequate (ADEQUATE) Triglycerides Level 93 mg/dL (0-150) Cholesterol Level 120 mg/dL (0-200) LDL Cholesterol, Calculated 62 mg/dL (0-100) VLDL Cholesterol, Calculated 19 mg/dL (0-40) Non-HDL Cholesterol Calculated 81 mg/dL (0-129) HDL Cholesterol 39 mg/dL (40-60) Cholesterol/HDL Ratio 3.1 Test 03/23/21 11:54 Glucose (Fingerstick) 222 mg/dL (70-99) Physical Exam HEENT: Neck Supple W Full Motion Chest: Symmetric LUNGS: Other (diminished bases) Heart: irregularly irregular (AFIB/flutter) Abdomen: Soft N/T, Other (obese) Extremities: Other (1+ bilateral LE edema ) Neurology: alert, oriented, follow commands Assessment Assessment 1. Acute respiratory failure with mild CHF, AE COPD 2. PAFIB/flutter with RVR; On Amiodarone for rhythm maintenance. Recent device check with 0% AFIB burden. On Low dose Eliquis for stroke prophylaxis 3. Acute on chronic diastolic CHF; s/p IV Lasix. Echo with preserved LV systolic function and moderate to severe valvular aortic stenosis. 4. SSS s/p PPM ([facility]). 5. Hypertension; now controlled 6. Hyperlipidemia; statin 7. Diabetes, II 8. H/o CVA 9. H/o Seizures Recommendations Device interrogation Mild diuresis Continue Amiodarone Add metoprolol for rate control Eliquis for stroke prophylaxis Secondary prevention Supportive care Consider CV if patient remains in AFIB Further workup of on an outpatient basis Justicifation of Admission Dx: Justifications for Admission: Justification of Admission Dx: Yes Comments: AFIB/flutter with RVR Acute on chronic CHF ELA BUENROSTRO MD 03/23/21 3513: CARDIO Progress Notes Plan Plan The patient was seen and interviewed as well as examined at the bedside. The chart was reviewed. The case was discussed. Agree with the plan of care. JACKELIN SALAS APRN Mar 23, 2021 12:31 ELA BUENROSTRO MD Mar 23, 2021 17:23
[2021-03-23 15:00] VITALS: BP 131/70
--- NOTE | 2021-03-23 15:19 | PDOC ---
[facility] PROGRESS NOTE Date of Service DOS: DATE: 03/23/21 TIME: 15:10 Chief Complaint Chief Complaint A/P: Acute respiratory failure with hypoxia - acute exacerbation of COPD and possibly heart failure. Patient is a limited historian. We will continue pulmonary medications. BIPAP prn S/p Permanent pacemaker Hyperlipidemia. Will check lab. History of a probable CVA and a possible seizure disorder Elevated glucose of 200. Continue present treatments and monitor. Hyponatremia Elevated bilirubin FEN - Cardiac diet PPX - heparin FULL CODE Dispo - inpatient History of Present Illness History of Present Illness Mr Griffith is a 80-year-old male who has COPD and congestive heart failure and a previous stroke who presented with shortness of breath, was noted to have an O2 sat around 70% at his SNF. He was also placed on CPAP when he got to the ER. His EKG showed some sinus tachycardia. The patient has now been admitted to the medical floor, where we are treating him for his COPD and CHF. O2 saturations improved on BIPAP, now on NCO2 6 l/min. Hollins placed for urinary retention. He is still confused. Vitals/I&O Vitals/I&O: Vital Signs Date Time Temp Pulse Resp B/P (MAP) Pulse Ox O2 Delivery O2 Flow Rate FiO2 03/23/21 13:13 94 Nasal Cannula 5.0 03/23/21 11:00 98.1 127 20 137/74 (95) 98.1 I & O 03/22/21 03/22/21 03/23/21 15:00 23:00 07:00 Intake Total 560 ml 380 ml 100 ml Output Total 550 ml 600 ml Balance 560 ml -170 ml -500 ml Physical Exam General: mild distress Heart: Regular rate Abdomen: Normal bowel sounds Labs Labs: Laboratory Tests Test 03/22/21 17:01 03/22/21 20:42 03/23/21 04:15 03/23/21 07:36 Glucose (Fingerstick) 186 mg/dL (70-99) 158 mg/dL (70-99) 202 mg/dL (70-99) White Blood Count 10.3 x10^3/uL (4.0-11.0) Red Blood Count 4.33 x10^6/uL (4.30-5.70) Hemoglobin 13.5 g/dL (13.0-17.5) Hematocrit 39.6 % (39.0-53.0) Mean Corpuscular Volume 92 fL (79-100) Mean Corpuscular Hemoglobin 31 pg (25-35) Mean Corpuscular Hemoglobin Concent 34 g/dL (31-37) Red Cell Distribution Width 13.8 % (11.5-14.5) Platelet Count 267 x10^3/uL (140-400) Neutrophils (%) (Auto) 94 % (31-73) Lymphocytes (%) (Auto) 5 % (24-48) Monocytes (%) (Auto) 1 % (0-9) Eosinophils (%) (Auto) 0 % (0-3) Basophils (%) (Auto) 0 % (0-3) Neutrophils # (Auto) 9.7 x10^3/uL (1.8-7.7) Lymphocytes # (Auto) 0.5 x10^3/uL (1.0-4.8) Monocytes # (Auto) 0.1 x10^3/uL (0.0-1.1) Eosinophils # (Auto) 0.0 x10^3/uL (0.0-0.7) Basophils # (Auto) 0.0 x10^3/uL (0.0-0.2) Segmented Neutrophils % 92 % (35-66) Lymphocytes % 8 % (24-48) Platelet Estimate Adequate (ADEQUATE) Triglycerides Level 93 mg/dL (0-150) Cholesterol Level 120 mg/dL (0-200) LDL Cholesterol, Calculated 62 mg/dL (0-100) VLDL Cholesterol, Calculated 19 mg/dL (0-40) Non-HDL Cholesterol Calculated 81 mg/dL (0-129) HDL Cholesterol 39 mg/dL (40-60) Cholesterol/HDL Ratio 3.1 Test 03/23/21 11:54 Glucose (Fingerstick) 222 mg/dL (70-99) Assessment and Plan Assessmemt and Plan Problems Medical Problems: (1) Wide-complex tachycardia Status: Acute Comment Review of Relevant I have reviewed the following items evin (where applicable) has been applied. Medications: Current Medications Medications (Trade) Dose Ordered Sig/Darius Route PRN Reason Start Time Stop Time Status Last Admin Dose Admin Atorvastatin Calcium (Lipitor) 20 mg QHS PO 03/22/21 21:00 03/22/21 20:38 Insulin Glargine (Lantus Syringe) 35 unit QHS SQ 03/22/21 21:00 03/22/21 21:00 Methylprednisolone Sodium Succinate (SOLU-Medrol 40MG VIAL) 40 mg BID IV 03/22/21 21:00 03/23/21 08:56 Albuterol/ Ipratropium (Duoneb) 3 ml RTQID NEB 03/22/21 16:00 03/23/21 13:12 Lactobacillus Rhamnosus (Culturelle) 1 cap BID PO 03/23/21 09:00 03/23/21 08:56 Justifications for Admission Other Justification LENNOX GROSS MD Mar 23, 2021 15:19
--- NOTE | 2021-03-23 16:27 | CARD ---
MR#: [id number] Date of Study: 03/23/2021 Ordering Physician: OLIMPIA MARTINEZ, Referring Physician: OLIMPIA MARTINEZ, Tech: Marlon Noel [facility] APPROVED REPORT EXAM: Two-dimensional and M-mode echocardiogram with Doppler and color Doppler. Other Information Quality : FairHR: 127bpm Rhythm : TachycardiaTechnically limited study due to body habitus and smoking. INDICATION Congestive Heart Failure COPD Surgery/Intervention Pacemaker: RISK FACTORS Hypertension Obesity Hyperlipidemia Diabetes Smoking COPD 2D DIMENSIONS Left Atrium(2D)5.0 (1.6-4.0cm)IVSd1.3 (0.7-1.1cm) Aortic Root(2D)3.2 (2.0-3.7cm)LVDd3.6 (3.9-5.9cm) LVOT Diameter1.7 (1.8-2.4cm)PWd1.2 (0.7-1.1cm) LVDs2.1 (2.5-4.0cm)FS (%) 43.4 % SV42.4 ml Aortic Valve AoV Peak Reji.311.3cm/sAoV VTI53.0cm AO Peak GR.38.8mmHgLVOT Peak Reji.106.7cm/s AO Mean GR.22mmHgAVA (VMAX)0.82cm2 Mitral Valve MV E Peak Gr.18mmHgMV E Mean Gr.7mmHg Pulmonary Valve PV Peak Kmirgppl53.7cm/s Tricuspid Valve TR P. [id number]/sTR Peak Gr.37mmHg LEFT VENTRICLE The left ventricle is normal size. There is mild concentric left ventricular hypertrophy. The left ve ntricular systolic function is normal. LV ejection fraction is 55 to 60%. There is normal LV segment al wall motion. Diastolic function unable to be assessed due to confounding valvular disease. No left ventricle thrombus noted on this study. There is no ventricular septal defect visualized. There is n o left ventricular aneurysm. There is no mass noted in the left ventricle. RIGHT VENTRICLE The right ventricle is normal size. There is normal right ventricular wall thickness. The right ventr icular systolic function is normal. ATRIA The left atrium is mild to moderately dilated. The right atrium size is normal. The interatrial septu m is intact with no evidence for an atrial septal defect or patent foramen ovale as noted on 2-D or D oppler imaging. AORTIC VALVE The aortic valve is moderately to severely calcified. Doppler and Color Flow revealed no significant aortic regurgitation. There is moderate to severe valvular aortic stenosis. Calculated aortic valve a rubina is 0.8 cm2 with maximum pressure gradient of 39 mmHg and mean pressure gradient of 22 mmHg. There is no aortic valvular vegetation. MITRAL VALVE Mitral annular calcification is mild. The mitral valve is calcified and displays decreased opening. T here is no evidence of mitral valve prolapse. There is mild mitral valve stenosis. Calculated mitral valve area is 1.3 cm2 with maximum pressure gradient of 19 mmHg and mean pressure gradient of 8 mmHg. Doppler and Color-flow revealed mild mitral regurgitation. TRICUSPID VALVE The tricuspid valve is normal in structure and function. Doppler and Color Flow revealed mild tricusp id regurgitation. The PA pressure was estimated at 46 mmHg. There is no tricuspid valve prolapse or v egetation. There is no tricuspid valve stenosis. PULMONIC VALVE The pulmonic valve is not well seen. Doppler and Color Flow revealed no pulmonic valvular regurgitati on. There is no pulmonic valvular stenosis. GREAT VESSELS The aortic root is normal in size. The ascending aorta is normal in size. The pulmonary artery is nor mal. The IVC is mildly dilated with blunted inspiratory response. PERICARDIAL EFFUSION There is no pleural effusion. There is no evidence of significant pericardial effusion. Critical Notification Critical Value: No <Conclusion> The left ventricle is normal size. The left ventricular systolic function is normal. LV ejection fraction is 55 to 60%. There is mild concentric left ventricular hypertrophy. The aortic valve is moderately to severely calcified. There is moderate to severe valvular aortic stenosis. Calculated aortic valve area is 0.8 cm2 with maximum pressure gradient of 39 mmHg and mean pressure g radient of 22 mmHg. Doppler and Color Flow revealed no significant aortic regurgitation. There is mild mitral valve stenosis. Calculated mitral valve area is 1.3 cm2 with maximum pressure gradient of 19 mmHg and mean pressure g radient of 8 mmHg. Doppler and Color-flow revealed mild mitral regurgitation. Doppler and Color Flow revealed mild tricuspid regurgitation. The PA pressure was estimated at 46 mmHg. Signed by : Olimpia Martinez MD Electronically Approved : 03/23/2021 16:26:47
[2021-03-23] MEDS ORDERED: POTASSIUM CHLORIDE 20 MEQ TABLET.ER. PO ONE (17:00)
[2021-03-23] MEDS ORDERED: FUROSEMIDE 40 MG/4 ML VIAL. IVP ONE (17:00)
[2021-03-23] MEDS: DOXYCYCLINE HYCLATE 100 MG in IV DEXTROSE 5% 100ML 100 ML IV SCH (17:54)
[2021-03-23] MEDS: PIPERACILLIN/TAZOBACTAM 4.5 GM in IV NORMAL SALINE 100ML 100 ML IV SCH (18:44)
[2021-03-23 19:00] VITALS: BP 142/80
[2021-03-23] MEDS: METOPROLOL TART IMMED RELEASE 25 MG TABLET. PO SCH (20:19)
[2021-03-23] MEDS: ATORVASTATIN CALCIUM 20 MG TABLET PO SCH (20:19)
[2021-03-23] MEDS: INSULIN GLARGINE SYRINGE. SQ SCH (20:32)
[2021-03-23] MEDS ORDERED: APIXABAN 2.5 MG TABLET. PO SCH (21:00)
--- NOTE | 2021-03-23 21:36 | NUR ---
pt hr was 129 showing v-tach. at approx 2136 the patient's heart rate dropped to 85 with a-fib. patient was asymptomatic and had no complaints when asked. Patient was resting comfortably will continue to monitor.
[2021-03-23 23:00] VITALS: BP 137/64
[2021-03-24] MEDS: PIPERACILLIN/TAZOBACTAM 4.5 GM in IV NORMAL SALINE 100ML 100 ML IV SCH ×4 (00:11→17:19)
[2021-03-24 03:00] VITALS: BP 112/64
[2021-03-24 04:38] LABS: ALBUMIN 2.7 g/dL (3.4-5.0); ALBUMIN/GLOBULIN RATIO 0.8 (1.0-1.7); CALCIUM 8.5 mg/dL (8.5-10.1); CREATININE 0.9 mg/dL (0.7-1.3); GFR 81.4; POTASSIUM 3.6 mmol/L (3.5-5.1); TOTAL BILIRUBIN 1.6 mg/dL (0.2-1.0); TOTAL PROTEIN 6.2 g/dL (6.4-8.2)
[2021-03-24 07:00] VITALS: BP 114/76
--- NOTE | 2021-03-24 07:41 | PDOC ---
[facility] [facility] PROGRESS NOTE Date of Service DOS: DATE: 03/24/21 TIME: 07:39 Chief Complaint Chief Complaint A/P: Acute respiratory failure with hypoxia - acute exacerbation of COPD and possibly heart failure. Patient is a limited historian. We will continue pulmonary medications. BIPAP prn S/p Permanent pacemaker Hyperlipidemia. Will check lab. History of a probable CVA and a possible seizure disorder Elevated glucose of 200. Continue present treatments and monitor. Hyponatremia Elevated bilirubin Severe aortic stenosis - will need outpatient evaluation Mild mitral stenosis Echo 03/23/2021: The left ventricle is normal size. The left ventricular systolic function is normal. LV ejection fraction is 55 to 60%. There is mild concentric left ventricular hypertrophy. The aortic valve is moderately to severely calcified. There is moderate to severe valvular aortic stenosis. Calculated aortic valve area is 0.8 cm2 with maximum pressure gradient of 39 mmHg and mean pressure gradient of 22 mmHg. Doppler and Color Flow revealed no significant aortic regurgitation. There is mild mitral valve stenosis. Calculated mitral valve area is 1.3 cm2 with maximum pressure gradient of 19 mmHg and mean pressure gradient of 8 mmHg. Doppler and Color-flow revealed mild mitral regurgitation. Doppler and Color Flow revealed mild tricuspid regurgitation. The PA pressure was estimated at 46 mmHg. FEN - Cardiac diet PPX - heparin FULL CODE Dispo - inpatient History of Present Illness History of Present Illness Mr Griffith is a 80-year-old male who has COPD and congestive heart failure and a previous stroke who presented with shortness of breath, was noted to have an O2 sat around 70% at his SNF. He was also placed on CPAP when he got to the ER. His EKG showed some sinus tachycardia. The patient has now been admitted to the medical floor, where we are treating him for his COPD and CHF. 03/23: O2 saturations improved on BIPAP, now on NCO2 6 l/min. Hollins placed for urinary retention. He is still confused. Echo with severe aortic stenosis and mild mitral stenosis. Less confused. Tolerated BiPAP well. Still on O2. Requiring 4 L nasal cannula to maintain O2 saturations 91%. Vitals/I&O Vitals/I&O: Vital Signs Date Time Temp Pulse Resp B/P (MAP) Pulse Ox O2 Delivery O2 Flow Rate FiO2 03/24/21 04:40 94 BiPAP/CPAP 03/24/21 03:00 97.7 80 21 112/64 (80) 97.7 03/23/21 20:05 5.0 I & O 03/23/21 03/23/21 03/24/21 15:00 23:00 07:00 Intake Total 337 ml 0 ml Output Total 1100 ml Balance 337 ml -1100 ml Physical Exam General: mild distress Heart: Regular rate Abdomen: Normal bowel sounds Labs Labs: Laboratory Tests Test 03/23/21 11:54 03/23/21 17:25 03/23/21 20:50 03/23/21 23:38 Glucose (Fingerstick) 222 mg/dL (70-99) 243 mg/dL (70-99) 307 mg/dL (70-99) 248 mg/dL (70-99) Test 03/24/21 03:20 Sodium Level 132 mmol/L (136-145) Potassium Level 3.6 mmol/L (3.5-5.1) Chloride Level 96 mmol/L (98-107) Carbon Dioxide Level 31 mmol/L (21-32) Anion Gap 5 (6-14) Blood Urea Nitrogen 22 mg/dL (8-26) Creatinine 0.9 mg/dL (0.7-1.3) Estimated GFR (Cockcroft-Gault) 81.4 BUN/Creatinine Ratio 24 (6-20) Glucose Level 215 mg/dL (70-99) Calcium Level 8.5 mg/dL (8.5-10.1) Total Bilirubin 1.6 mg/dL (0.2-1.0) Aspartate Amino Transf (AST/SGOT) 25 U/L (15-37) Alanine Aminotransferase (ALT/SGPT) 44 U/L (16-63) Alkaline Phosphatase 58 U/L (46-116) Total Protein 6.2 g/dL (6.4-8.2) Albumin 2.7 g/dL (3.4-5.0) Albumin/Globulin Ratio 0.8 (1.0-1.7) Assessment and Plan Assessmemt and Plan Problems Medical Problems: (1) Wide-complex tachycardia Status: Acute Comment Review of Relevant I have reviewed the following items evin (where applicable) has been applied. Medications: Current Medications Medications (Trade) Dose Ordered Sig/Darius Route PRN Reason Start Time Stop Time Status Last Admin Dose Admin Lactobacillus Rhamnosus (Culturelle) 1 cap BID PO 03/23/21 09:00 03/23/21 20:19 Doxycycline Hyclate 100 mg/ Dextrose 100 ml @ 50 mls/hr Q12HR IV 03/23/21 17:00 03/23/21 17:54 Piperacillin Sod/ Tazobactam Sod 4.5 gm/Sodium Chloride 100 ml @ 200 mls/hr Q6HRS IV 03/23/21 18:00 03/24/21 06:12 Furosemide (Lasix) 40 mg 1X ONCE IVP 03/23/21 17:00 03/23/21 17:02 DC 03/23/21 17:53 Potassium Chloride (Klor-Con) 20 meq 1X ONCE PO 03/23/21 17:00 03/23/21 17:02 DC 03/23/21 17:53 Metoprolol Tartrate (Lopressor) 25 mg BID PO 03/23/21 21:00 03/23/21 20:19 Justifications for Admission Other Justification LENNOX GROSS MD Mar 24, 2021 07:41
[2021-03-24] MEDS: IPRATRPIUM/ALBUTEROL 0.5/2.5MG 3 ML NEBU. NEB SCH ×4 (07:46→20:41)
[2021-03-24] MEDS: INSULIN LISPRO 300 UNITS/3 ML VIAL. SQ SCH ×3 (08:00→17:28)
[2021-03-24] MEDS: MULTIVITAMIN with MINERAL TABLET. PO SCH (08:21)
[2021-03-24] MEDS: METOPROLOL TART IMMED RELEASE 25 MG TABLET. PO SCH ×2 (08:22→20:30)
[2021-03-24] MEDS: LACTOBACILLUS RHAMNOSUS GG 1 CAPSULE. PO SCH ×2 (08:22→20:30)
[2021-03-24] MEDS: metFORMIN XR 500 MG TAB.ER.24H PO SCH (08:22)
[2021-03-24] MEDS: TAMSULOSIN 0.4 MG CAP.ER.24H. PO SCH (08:22)
[2021-03-24] MEDS: APIXABAN 2.5 MG TABLET. PO SCH ×2 (08:23→20:30)
[2021-03-24] MEDS: CETIRIZINE HCL 10 MG TABLET. PO SCH (08:23)
[2021-03-24] MEDS: POLYETHYLENE GLYCOL 3350 17 GM PACKET. PO SCH (08:23)
[2021-03-24] MEDS: AMIODARONE HCL 200 MG TABLET. PO SCH (08:23)
[2021-03-24] MEDS: FINASTERIDE 5 MG TABLET. PO SCH (08:23)
[2021-03-24] MEDS: CITALOPRAM 10 MG TABLET. PO SCH (08:23)
[2021-03-24] MEDS: ANTI-COAG MONITOR BY PHARMACY. MC PRN (10:28)
[2021-03-24] MEDS: DOXYCYCLINE HYCLATE 100 MG in IV DEXTROSE 5% 100ML 100 ML IV SCH ×2 (10:56→20:29)
[2021-03-24] MEDS: methylPREDNISolone SOD SUCC PF 40 MG/ML VIAL. IV SCH ×2 (10:58→20:30)
[2021-03-24 11:00] VITALS: BP 119/70
--- NOTE | 2021-03-24 11:13 | NUR ---
SS following up with discharge planning. SS reviewed pt chart and discussed with pt RN. Pt is LTC resident from [facility], ; fax [phone]. COVID19 negative. Pt is currently requiring oxygen at five liters nasal canula. Pt on IV Zosyn, IV Doxycycline, and IV Solu-Medrol. No PT/OT needs. Discharge plan is to return to [facility] when medically ready for discharge. SS will continue to follow for discharge planning.
--- NOTE | 2021-03-24 13:51 | PDOC ---
JACKELIN SALAS SAP CRM DEVELOPER 03/24/21 1351: CARDIO Progress Notes Date and Time Date of Service 03/24/21 Time of Evaluation 1210 Subjective Subjective: No Chest Pain, No Palpitations, Other (eating lunch, slightly SOA) Vitals Vitals Vital Signs Date Time Temp Pulse Resp B/P (MAP) Pulse Ox O2 Delivery O2 Flow Rate FiO2 03/24/21 11:33 97 Nasal Cannula 5.0 03/24/21 11:00 98.5 80 18 119/70 (86) 98.5 Weight Weight [ ] Input and Output Intake and Output Intake and Output 03/24/21 07:00 Intake Total 337 ml Output Total 1100 ml Balance -763 ml Intake Oral 337 ml Output Urine Total 1100 ml # Bowel Movements 2 Laboratory Labs Laboratory Tests Test 03/23/21 17:25 03/23/21 20:50 03/23/21 23:38 03/24/21 03:20 Glucose (Fingerstick) 243 mg/dL (70-99) 307 mg/dL (70-99) 248 mg/dL (70-99) Sodium Level 132 mmol/L (136-145) Potassium Level 3.6 mmol/L (3.5-5.1) Chloride Level 96 mmol/L (98-107) Carbon Dioxide Level 31 mmol/L (21-32) Anion Gap 5 (6-14) Blood Urea Nitrogen 22 mg/dL (8-26) Creatinine 0.9 mg/dL (0.7-1.3) Estimated GFR (Cockcroft-Gault) 81.4 BUN/Creatinine Ratio 24 (6-20) Glucose Level 215 mg/dL (70-99) Calcium Level 8.5 mg/dL (8.5-10.1) Total Bilirubin 1.6 mg/dL (0.2-1.0) Aspartate Amino Transf (AST/SGOT) 25 U/L (15-37) Alanine Aminotransferase (ALT/SGPT) 44 U/L (16-63) Alkaline Phosphatase 58 U/L (46-116) Total Protein 6.2 g/dL (6.4-8.2) Albumin 2.7 g/dL (3.4-5.0) Albumin/Globulin Ratio 0.8 (1.0-1.7) Test 03/24/21 07:59 03/24/21 11:46 Glucose (Fingerstick) 149 mg/dL (70-99) 180 mg/dL (70-99) Physical Exam HEENT: Neck Supple W Full Motion Chest: Symmetric LUNGS: Other (diminished bases) Heart: irregularly irregular (AFIB/flutter, rate controlled ) Abdomen: Soft N/T, Other (obese) Extremities: Other (1+ bilateral LE edema ) Neurology: alert, oriented, follow commands Assessment Assessment 1. Acute respiratory failure with mild CHF, AE COPD 2. PAFIB/flutter with RVR; On Amiodarone for rhythm maintenance. Recent device check with 0% AFIB burden. On Low dose Eliquis for stroke prophylaxis 3. Acute on chronic diastolic CHF; s/p IV Lasix. Echo with preserved LV systolic function and moderate to severe valvular aortic stenosis. 4. SSS s/p PPM ([facility]) 5. Hypertension; now controlled 6. Hyperlipidemia; statin 7. Diabetes, II 8. H/o CVA 9. H/o Seizures Recommendations Lasix therapy Continue Amiodarone therapy Metoprolol for rate control Eliquis for stroke prophylaxis Secondary prevention Supportive care Consider CV if patient remains in AFIB Further workup of on an outpatient basis Justicifation of Admission Dx: Justifications for Admission: Justification of Admission Dx: Yes ELA BUENROSTRO MD 03/24/21 1545: CARDIO Progress Notes Plan Plan Pt. seen and examined. Agree with above SPECIAL INVESTIGATION UNIT INVESTIGATOR note. Continue diuresis. Prior echo and most recent echo reviewed. By exam he has had severe . We will plan for a right and left heart cath prior to DC. Aim for procedure in the next 24 to 48 hours depending on clinical status. JACKELIN SALAS APRN Mar 24, 2021 13:51 ELA BUENROSTRO MD Mar 24, 2021 15:45
[2021-03-24] MEDS ORDERED: POTASSIUM CHLORIDE 20 MEQ TABLET.ER. PO ONE (14:00)
[2021-03-24] MEDS ORDERED: FUROSEMIDE 40 MG/4 ML VIAL. IVP ONE (14:00)
[2021-03-24 15:00] VITALS: BP 125/76
[2021-03-24 19:20] VITALS: BP 125/63
[2021-03-24] MEDS: ATORVASTATIN CALCIUM 20 MG TABLET PO SCH (20:30)
[2021-03-24] MEDS: INSULIN GLARGINE SYRINGE. SQ SCH (21:20)
[2021-03-24 22:50] VITALS: BP 139/68
--- NOTE | 2021-03-24 23:00 | NUR ---
PT GOT A NEW IV IN RIGHT HAND. PT TOLERATED WELL. DC D OLD IV NO COMPLICATIONS. LCRN
[2021-03-25] MEDS: PIPERACILLIN/TAZOBACTAM 4.5 GM in IV NORMAL SALINE 100ML 100 ML IV SCH ×5 (01:00→23:33)
[2021-03-25 03:00] VITALS: BP 112/68
[2021-03-25 07:00] VITALS: BP 137/76
[2021-03-25] MEDS: IPRATRPIUM/ALBUTEROL 0.5/2.5MG 3 ML NEBU. NEB SCH ×4 (07:48→22:03)
--- NOTE | 2021-03-25 07:49 | NUR ---
PT WORE BIPAP ALL NIGHT, AND TOLERATED WELL. LCRN
[2021-03-25] MEDS: INSULIN LISPRO 300 UNITS/3 ML VIAL. SQ SCH ×3 (08:00→17:18)
[2021-03-25] MEDS: POLYETHYLENE GLYCOL 3350 17 GM PACKET. PO SCH (09:00)
[2021-03-25] MEDS: methylPREDNISolone SOD SUCC PF 40 MG/ML VIAL. IV SCH ×2 (09:04→20:28)
[2021-03-25] MEDS: DOXYCYCLINE HYCLATE 100 MG in IV DEXTROSE 5% 100ML 100 ML IV SCH ×2 (09:07→20:29)
[2021-03-25 11:00] VITALS: BP 168/95
--- NOTE | 2021-03-25 11:31 | PDOC ---
JACKELIN SALAS GAS COLLECTION SYSTEM OPERATOR 03/25/21 1131: CARDIO Progress Notes Date and Time Date of Service 03/25/21 Time of Evaluation 1120 Subjective Subjective: No Chest Pain, No Palpitations, Other (shortness of breathing slightly better, but persists) Vitals Vitals Vital Signs Date Time Temp Pulse Resp B/P (MAP) Pulse Ox O2 Delivery O2 Flow Rate FiO2 03/25/21 11:00 97.5 80 22 168/95 (119) 93 Nasal Cannula 4.0 97.5 Weight Weight [ ] Input and Output Intake and Output Intake and Output 03/25/21 07:00 Intake Total 1040 ml Output Total 2300 ml Balance -1260 ml Intake Oral 1040 ml Output Urine Total 2300 ml # Bowel Movements 1 Laboratory Labs Laboratory Tests Test 03/24/21 11:46 03/24/21 17:18 03/24/21 21:03 03/25/21 07:57 Glucose (Fingerstick) 180 mg/dL (70-99) 268 mg/dL (70-99) 303 mg/dL (70-99) 195 mg/dL (70-99) Physical Exam HEENT: Neck Supple W Full Motion Chest: Symmetric LUNGS: Other (diminished bases) Heart: irregularly irregular (AFIB/flutter, rate controlled ) Abdomen: Soft N/T, Other (obese) Extremities: Other (1+ bilateral LE edema ) Neurology: alert, oriented, follow commands, other (forgetful) Assessment Assessment 1. Acute respiratory failure with mild CHF, AE COPD 2. PAFIB/flutter with RVR; On Amiodarone for rhythm maintenance. Recent device check with 0% AFIB burden. On Low dose Eliquis for stroke prophylaxis 3. Acute on chronic diastolic CHF; s/p IV Lasix. Echo with preserved LV systolic function and moderate to severe valvular aortic stenosis. 4. SSS s/p PPM ([facility]) 5. Hypertension; now controlled 6. Hyperlipidemia; statin 7. Diabetes, II 8. H/o CVA 9. H/o Seizures Recommendations Lasix therapy Continue Amiodarone therapy Metoprolol for rate control Secondary prevention Hold Eliquis tonight and in am Will plan for right and left heart cath in am. R/b/a discussed with patient and he is agreeable. Will discuss with . NPO p MN Justicifation of Admission Dx: Justifications for Admission: Justification of Admission Dx: Yes ELA BUENROSTRO MD 03/25/21 1825: CARDIO Progress Notes Plan Plan The patient was seen and interviewed as well as examined at the bedside. The chart was reviewed. The case was discussed. Agree with the plan of care. JACKELIN SALAS APRN Mar 25, 2021 11:31 ELA BUENROSTRO MD Mar 25, 2021 18:25
--- NOTE | 2021-03-25 11:33 | PDOC ---
[facility] PROGRESS NOTE Date of Service DOS: DATE: 03/25/21 TIME: 11:32 Chief Complaint Chief Complaint A/P: Acute respiratory failure with hypoxia - acute exacerbation of COPD and possibly heart failure. Patient is a limited historian. We will continue pulmonary medications. BIPAP prn S/p Permanent pacemaker Hyperlipidemia. Will check lab. History of a probable CVA and a possible seizure disorder Elevated glucose of 200. Continue present treatments and monitor. Hyponatremia Elevated bilirubin Severe aortic stenosis - will need outpatient evaluation Mild mitral stenosis Echo 03/23/2021: The left ventricle is normal size. The left ventricular systolic function is normal. LV ejection fraction is 55 to 60%. There is mild concentric left ventricular hypertrophy. The aortic valve is moderately to severely calcified. There is moderate to severe valvular aortic stenosis. Calculated aortic valve area is 0.8 cm2 with maximum pressure gradient of 39 mmHg and mean pressure gradient of 22 mmHg. Doppler and Color Flow revealed no significant aortic regurgitation. There is mild mitral valve stenosis. Calculated mitral valve area is 1.3 cm2 with maximum pressure gradient of 19 mmHg and mean pressure gradient of 8 mmHg. Doppler and Color-flow revealed mild mitral regurgitation. Doppler and Color Flow revealed mild tricuspid regurgitation. The PA pressure was estimated at 46 mmHg. FEN - Cardiac diet PPX - heparin FULL CODE Dispo - inpatient History of Present Illness History of Present Illness Mr Griffith is a 80-year-old male who has COPD and congestive heart failure and a previous stroke who presented with shortness of breath, was noted to have an O2 sat around 70% at his SNF. He was also placed on CPAP when he got to the ER. His EKG showed some sinus tachycardia. The patient has now been admitted to the medical floor, where we are treating him for his COPD and CHF. 03/23: O2 saturations improved on BIPAP, now on NCO2 6 l/min. Hollins placed for urinary retention. He is still confused. 03/24: Echo with severe aortic stenosis and mild mitral stenosis. Less confused. Tolerated BiPAP well. Still on O2. Requiring 4 L nasal cannula to maintain O2 saturations 91%. Wore BiPAP overnight well still required 4 L nasal cannula O2. Pacer interrogated this morning 100% A. fib. Vitals/I&O Vitals/I&O: Vital Signs Date Time Temp Pulse Resp B/P (MAP) Pulse Ox O2 Delivery O2 Flow Rate FiO2 03/25/21 11:00 97.5 80 22 168/95 (119) 93 Nasal Cannula 4.0 97.5 I & O 03/24/21 03/24/21 03/25/21 15:00 23:00 07:00 Intake Total 620 ml 300 ml 120 ml Output Total 1450 ml 850 ml Balance 620 ml -1150 ml -730 ml Physical Exam General: mild distress Heart: Regular rate Abdomen: Normal bowel sounds Labs Labs: Laboratory Tests Test 03/24/21 11:46 03/24/21 17:18 03/24/21 21:03 03/25/21 07:57 Glucose (Fingerstick) 180 mg/dL (70-99) 268 mg/dL (70-99) 303 mg/dL (70-99) 195 mg/dL (70-99) Assessment and Plan Assessmemt and Plan Problems Medical Problems: (1) Wide-complex tachycardia Status: Acute Comment Review of Relevant I have reviewed the following items evin (where applicable) has been applied. Medications: Current Medications Medications (Trade) Dose Ordered Sig/Darius Route PRN Reason Start Time Stop Time Status Last Admin Dose Admin Furosemide (Lasix) 40 mg 1X ONCE IVP 03/24/21 14:00 03/24/21 14:01 DC 03/24/21 15:13 Potassium Chloride (Klor-Con) 20 meq 1X ONCE PO 03/24/21 14:00 03/24/21 14:01 DC 03/24/21 15:12 Justifications for Admission Other Justification LENNOX GROSS MD Mar 25, 2021 11:33
[2021-03-25] MEDS: APIXABAN 2.5 MG TABLET. PO SCH (12:52)
[2021-03-25] MEDS: MULTIVITAMIN with MINERAL TABLET. PO SCH (12:52)
[2021-03-25] MEDS: AMIODARONE HCL 200 MG TABLET. PO SCH (12:53)
[2021-03-25] MEDS: CITALOPRAM 10 MG TABLET. PO SCH (12:53)
[2021-03-25] MEDS: metFORMIN XR 500 MG TAB.ER.24H PO SCH (12:53)
[2021-03-25] MEDS: LACTOBACILLUS RHAMNOSUS GG 1 CAPSULE. PO SCH ×2 (12:53→20:25)
[2021-03-25] MEDS: METOPROLOL TART IMMED RELEASE 25 MG TABLET. PO SCH ×2 (12:53→20:30)
[2021-03-25] MEDS: FINASTERIDE 5 MG TABLET. PO SCH (12:53)
[2021-03-25] MEDS: TAMSULOSIN 0.4 MG CAP.ER.24H. PO SCH (12:53)
[2021-03-25] MEDS: CETIRIZINE HCL 10 MG TABLET. PO SCH (12:53)
[2021-03-25] MEDS ORDERED: FUROSEMIDE 40 MG/4 ML VIAL. IVP ONE (13:45)
[2021-03-25 15:00] VITALS: BP 109/63
--- NOTE | 2021-03-25 15:02 | NUR ---
SS following up with discharge planning. SS reviewed pt chart and discussed with pt RN. Pt is currently requiring oxygen at four liters nasal canula. COVID19 negative. Pt on IV Zosyn, IV Doxycycline, IV Solu-Medrol, and IV Lasix. PT/OT ordered. Left and right heart cath tomorrow. Pt is LTC resident from [facility], ; fax [phone], and is able to return when medically ready for discharge. SS will continue to follow for discharge planning.
--- NOTE | 2021-03-25 17:46 | NUR ---
NURSING PT KEPT NPO UNTIL SEEN BY CARDIOLOGY, WAS A POSSIBLE FOR HEART CATH TODAY. PLAN TO CATH TOMORROW. ABLE TO EAT ADA DIET LUNCH ET DINNER, NPO TONIGHT AT MIDNOC. TURNS BACK ET FORTH IN BED WITH ASSIST OF STAFF. USES CALL LIGHT TO MAKE NEEDS KNOWN. 1200ML URINE RETURN AFTER IVP LASIX DOSE THIS AFTERNOON.
[2021-03-25 19:33] VITALS: BP 111/59
[2021-03-25] MEDS: ATORVASTATIN CALCIUM 20 MG TABLET PO SCH (20:25)
[2021-03-25] MEDS: INSULIN GLARGINE SYRINGE. SQ SCH (20:47)
[2021-03-25] MEDS: ACETAMINOPHEN 325 MG TABLET. PO PRN (21:45)
[2021-03-25 23:23] VITALS: BP 151/82
[2021-03-26] VITALS (18 sets, daily range): BP systolic 102–158; BP diastolic 64–92
[2021-03-26] MEDS: PIPERACILLIN/TAZOBACTAM 4.5 GM in IV NORMAL SALINE 100ML 100 ML IV SCH ×4 (05:56→23:35)
[2021-03-26] MEDS: metFORMIN XR 500 MG TAB.ER.24H PO SCH (07:57)
[2021-03-26] MEDS: IPRATRPIUM/ALBUTEROL 0.5/2.5MG 3 ML NEBU. NEB SCH ×4 (08:00→21:10)
[2021-03-26] MEDS: METOPROLOL TART IMMED RELEASE 25 MG TABLET. PO SCH ×2 (08:18→21:05)
[2021-03-26] MEDS: AMIODARONE HCL 200 MG TABLET. PO SCH (08:18)
[2021-03-26] MEDS: INSULIN LISPRO 300 UNITS/3 ML VIAL. SQ SCH ×3 (08:26→18:09)
[2021-03-26] MEDS ORDERED: fentaNYL PF VIAL 100 MCG/2 ML VIAL ONE (08:31)
[2021-03-26] MEDS ORDERED: NITROGLYCERIN 200 MCG/2 ML SYRINGE FOR CATH/VASC LAB. ONE (08:32)
[2021-03-26] MEDS ORDERED: HEPARIN for IV BOLUS 10,000 UNIT/10 ML VIAL. ONE (08:32)
[2021-03-26] MEDS ORDERED: VERAPAMIL 5 MG/2 ML VIAL. ONE (08:32)
[2021-03-26] MEDS ORDERED: MIDAZOLAM HCL/PF 2 MG/2 ML VIAL. ONE (08:32)
--- NOTE | 2021-03-26 08:41 | PDOC ---
MODERATE SEDATION ASSESSMENT RISKS/ALTERNATIVES Risks/Alternatives Risks and alternatives of this type of sedation and procedure discussed with: RISK/ALTERNATIVES: Patient H & P ON CHART H & P H & P on chart and reviewed for co-morbid conditions and appropriate labs. H&P ON CHART: Yes STATUS PREG STATUS ASSESSED: N/A MEDS/ALLERGIES REVIEWED Meds/Allergies Reviewed Medications and Allergies including time and route of recently administered narcotics and sedatives. MEDS/ALLERGIES REVIEWED: Yes ASA RATING ASA RATING: II AIRWAY ASSESSMENT Airway Assessment Airway patency, oral function limitations, presence of caps, crowns, dentures, partials, and ability to extend neck assessed. AIRWAY ASSESSMENT: Yes MALLAMPATI SCORE MALLAMPATI SCORE: II PRE-SEDATION ASSESSMENT PRE-SEDATION ASSESSMENT: Yes ELA BUENROSTRO MD Mar 26, 2021 08:41
[2021-03-26] MEDS: POLYETHYLENE GLYCOL 3350 17 GM PACKET. PO SCH (09:00)
[2021-03-26] MEDS ORDERED: VERAPAMIL 5 MG/2 ML VIAL. IART ONE (09:30)
[2021-03-26] MEDS ORDERED: MIDAZOLAM HCL/PF 2 MG/2 ML VIAL. IV ONE (09:30)
[2021-03-26] MEDS ORDERED: HEPARIN for IV BOLUS 10,000 UNIT/10 ML VIAL. IART ONE (09:30)
[2021-03-26] MEDS ORDERED: LIDOCAINE 1% Multi-Dose 20 ML VIAL. INJ ONE (09:30)
[2021-03-26] MEDS ORDERED: IODIXANOL 320 MG/ML 100 ML VIAL. IART ONE (09:30)
[2021-03-26] MEDS ORDERED: fentaNYL PF VIAL 100 MCG/2 ML VIAL IV ONE (09:30)
[2021-03-26] MEDS ORDERED: NITROGLYCERIN 200 MCG/2 ML SYRINGE FOR CATH/VASC LAB. IART ONE (09:30)
[2021-03-26] MEDS ORDERED: FUROSEMIDE 100 MG/10 ML VIAL. ONE (09:31)
[2021-03-26] MEDS ORDERED: FUROSEMIDE 40 MG/4 ML VIAL. IVP ONE (10:00)
--- NOTE | 2021-03-26 10:25 | CARD ---
MR#: [id number] Date of Study: 03/26/2021 Ordering Physician: JACKELIN SALAS, Referring Physician: JACKELIN SALAS, Tech: Zahra Robert RT(R) APPROVED REPORT Technologist: Zahra Robert RT(R) Nurse: Ronna Mills RN Procedure(s) performed: fl time: 3.1 mins dose: 93 gycm2 contrast: 48 ml moderate sedation: 42 MINS LHC, Coronary angiography, RHC [facility] Clinical Frailty Scale [facility] Clinical Frailty Scale: Severely Frail Heart Failure Heart Failure: Yes If Yes, Newly Diagnosed: No If Yes, HF Type: Diastolic If Yes, NYHA Class: Class III CASE TECHNIQUE IV conscious sedation was used throughout procedure with appropriate monitoring and was performed in the presence of a registered nurse who was an independent trained observer other than the physician p erforming the procedure. During this case, Fluoroscopy and low osmolar contrast were used for imaging . Specimen(s) Removed: N/A Estimated Blood loss: 15 cc's. PROCEDURE NARRATIVE Clinical information: 80-year-old male with past medical history of moderate aortic stenosis presented to the hospital with worsening decompensated heart failure. Echocardiogram revealed normal LV systolic function with mod erate aortic stenosis. Given recurrent symptoms of heart failure and discrepancy between his physica l examination suggestive of severity stenosis and echocardiogram suggesting moderate aortic stenosis decision was made to take the patient to the cardiac catheterization laboratory for further evaluatio n. Procedure details: After proper informed consent the right neck and right wrist were prepped and draped in usual sterile fashion. Under 1% lidocaine local anesthesia and ultrasound guidance a five T[place] d in the right internal jugular vein. Next, a six Togolese sheath was placed in the right radial arter y. Diagnostic angiography was then performed with a six Togolese TIG catheter. Of note, the TIG kinsey ter was easily able to traverse the aortic valve with the aid of a J-tipped guidewire. A pullback wa s performed. Next, a five Togolese PA catheter was advanced to the right heart chambers and pressures and saturations were obtained. At case completion's all catheters and wires were removed and hemosta sis was achieved in the right neck with manual compression and a Terumo radial band was applied to th e right radial artery. No acute complications noted. Findings: Aorta 140/80 LVEDP 35 mmHg LV to aortic pullback gradient of approximately 25 mmHg (Mean gradient by echo of 22 mm Hg) Right heart catheterization: RA 27/23/21 RV 53/17/26 PA 51/28/42 Wedge 39/46/37 PA saturation 68.4, FA saturation 97.8 Alton cardiac output 4.4 L/min Coronary angiography: Left main is a moderate to large caliber vessel with a distal 60 to 70% stenosis LAD is a moderate caliber vessel with a proximal 40 to 50% stenosis. The distal vessel has diffuse 7 0% stenosis in a small in caliber D1 is a small caliber vessel with a proximal 80% stenosis Ramus is a moderate caliber vessel with a proximal 90% stenosis Left circumflex is a moderate to large caliber dominant vessel with mild diffuse irregularities of up to 30% OM1 has a proximal 100% occlusion. RCA is a small caliber codominant vessel with a mid 100% occlusion. RPDA is a small caliber vessel with faint left to right collaterals noted. Conclusion 1. Severe biventricular volume overload. 2. Secondary pulmonary HTN (mPA 42 mm Hg) 3. Normal cardiac output. 4. Probable mixed Mild to Moderate aortic stenosis and insufficiency (Pull back peak to peak gradient of 25 mm Hg, MG of 22 mm Hg) - 6Fr TIG catheter easily able to cross valve with Jtip guide wire. 5. 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 Recommendations 1. Plan for aggrressive diuresis 2. Once patient is euvolemic, reassess need for high risk PCI and further evaluation of aortic valve with JENIFFER. Given that patient is wheel chair bound and lives in a longterm and is currently free o f angina with preserved EF, he may be best served with medical therapy. Discussed with family. Will consider outpt referral to CT surgery for formal consultation. Signed by : Jhon Ballesteros, Electronically Approved : 03/26/2021 10:24:57
[2021-03-26] MEDS: MULTIVITAMIN with MINERAL TABLET. PO SCH (10:26)
[2021-03-26] MEDS: LACTOBACILLUS RHAMNOSUS GG 1 CAPSULE. PO SCH ×2 (10:26→21:04)
[2021-03-26] MEDS: FINASTERIDE 5 MG TABLET. PO SCH (10:26)
[2021-03-26] MEDS: DOXYCYCLINE HYCLATE 100 MG in IV DEXTROSE 5% 100ML 100 ML IV SCH ×2 (10:26→21:04)
[2021-03-26] MEDS: CETIRIZINE HCL 10 MG TABLET. PO SCH (10:26)
[2021-03-26] MEDS: methylPREDNISolone SOD SUCC PF 40 MG/ML VIAL. IV SCH ×2 (10:26→21:05)
[2021-03-26] MEDS: TAMSULOSIN 0.4 MG CAP.ER.24H. PO SCH (10:26)
[2021-03-26] MEDS: CITALOPRAM 10 MG TABLET. PO SCH (10:26)
[2021-03-26] MEDS ORDERED: IODIXANOL 320 MG/ML 100 ML VIAL. ONE (10:39)
[2021-03-26] MEDS ORDERED: LIDOCAINE 1% Multi-Dose 20 ML VIAL. ONE (10:39)
--- NOTE | 2021-03-26 11:06 | NUR ---
SS following up with discharge planning. SS reviewed pt chart and discussed with pt RN. Pt is LTC resident from [facility], ; fax [phone]. COVID19 negative. Pt is currently requiring oxygen at four liters nasal canula. Pt on IV Zosyn, IV Solu-Medrol, and IV Doxycycline. PT/OT ordered. Pt having right and left heart cath today. Clinical updates sent to [facility]. SS will continue to follow for discharge planning.
[2021-03-26] MEDS: ACETAMINOPHEN 325 MG TABLET. PO PRN (13:19)
--- NOTE | 2021-03-26 14:00 | PDOC ---
[facility] PROGRESS NOTE Date of Service DOS: DATE: 03/26/21 TIME: 13:58 Chief Complaint Chief Complaint A/P: Acute respiratory failure with hypoxia - acute exacerbation of COPD and possibly heart failure. Patient is a limited historian. We will continue pulmonary medications. BIPAP prn S/p Permanent pacemaker Hyperlipidemia. Will check lab. History of a probable CVA and a possible seizure disorder - wheelchair bound and SNF resident at baseline Elevated glucose of 200. Continue present treatments and monitor. Hyponatremia Elevated bilirubin Severe aortic stenosis - will need outpatient evaluation Mild mitral stenosis Echo 03/23/2021: The left ventricle is normal size. The left ventricular systolic function is normal. LV ejection fraction is 55 to 60%. There is mild concentric left ventricular hypertrophy. The aortic valve is moderately to severely calcified. There is moderate to severe valvular aortic stenosis. Calculated aortic valve area is 0.8 cm2 with maximum pressure gradient of 39 mmHg and mean pressure gradient of 22 mmHg. Doppler and Color Flow revealed no significant aortic regurgitation. There is mild mitral valve stenosis. Calculated mitral valve area is 1.3 cm2 with maximum pressure gradient of 19 mmHg and mean pressure gradient of 8 mmHg. Doppler and Color-flow revealed mild mitral regurgitation. Doppler and Color Flow revealed mild tricuspid regurgitation. The PA pressure was estimated at 46 mmHg. FEN - Cardiac diet PPX - heparin FULL CODE Dispo - inpatient History of Present Illness History of Present Illness Mr Griffith is a 80-year-old male who has COPD and congestive heart failure and a previous stroke who presented with shortness of breath, was noted to have an O2 sat around 70% at his SNF. He was also placed on CPAP when he got to the ER. His EKG showed some sinus tachycardia. The patient has now been admitted to the medical floor, where we are treating him for his COPD and CHF. 03/23: O2 saturations improved on BIPAP, now on NCO2 6 l/min. Hollins placed for urinary retention. He is still confused. 03/24: Echo with severe aortic stenosis and mild mitral stenosis. Less confused. Tolerated BiPAP well. Still on O2. Requiring 4 L nasal cannula to maintain O2 saturations 91%. 03/25: Wore BiPAP overnight well still required 4 L nasal cannula O2. Pacer inte rrogated this morning 100% A. fib. Afebrile overnight. Still required BiPAP overnight and 4 L nasal cannula oxygen at rest. To the left and right heart cath today with cardiology findings of triple-vessel disease with left main disease as well as biventricular overload plan for aggressive diuresis. Discussed with patient and significant other bedside given his functional status he is still like a formal outpatient CT surgery consultation at some point in the future after returning to SNF. Still require approximately 3 additional days of diuresis likely. Vitals/I&O Vitals/I&O: Vital Signs Date Time Temp Pulse Resp B/P (MAP) Pulse Ox O2 Delivery O2 Flow Rate FiO2 03/26/21 11:45 94 Nasal Cannula 3.0 03/26/21 10:10 98.1 80 18 128/81 (97) 98.1 I & O 03/25/21 03/25/21 03/26/21 15:00 23:00 07:00 Intake Total 0 ml 790 ml 200 ml Output Total 475 ml 700 ml 675 ml Balance -475 ml 90 ml -475 ml Physical Exam General: mild distress Heart: Regular rate Abdomen: Normal bowel sounds Labs Labs: Laboratory Tests Test 03/25/21 16:20 03/25/21 20:41 03/26/21 07:17 03/26/21 12:07 Glucose (Fingerstick) 244 mg/dL (70-99) 218 mg/dL (70-99) 215 mg/dL (70-99) 211 mg/dL (70-99) Assessment and Plan Assessmemt and Plan Problems Medical Problems: (1) Wide-complex tachycardia Status: Acute Comment Review of Relevant I have reviewed the following items evin (where applicable) has been applied. Medications: Current Medications Medications (Trade) Dose Ordered Sig/Darius Route PRN Reason Start Time Stop Time Status Last Admin Dose Admin Nitroglycerin (Nitroglycerin) 200 mcg 1X ONCE IART 03/26/21 09:30 03/26/21 09:32 DC 03/26/21 09:45 Verapamil HCl (Verapamil) 2.5 mg 1X ONCE IART 03/26/21 09:30 03/26/21 09:32 DC 03/26/21 09:10 Heparin Sodium (Porcine) (Heparin Sodium) 2,500 unit 1X ONCE IART 03/26/21 09:30 03/26/21 09:32 DC 03/26/21 09:47 Heparin Sodium/ Sodium Chloride (HEPARIN for ARTERIAL LINE FLUSH) 1,000 unit 1X ONCE IART 03/26/21 09:30 03/26/21 09:32 DC 03/26/21 09:44 Midazolam HCl (Versed) 1 mg 1X ONCE IV 03/26/21 09:30 03/26/21 09:32 DC 03/26/21 09:46 Fentanyl Citrate (Fentanyl 2ml Vial) 50 mcg 1X ONCE IV 03/26/21 09:30 03/26/21 09:32 DC 03/26/21 09:46 Iodixanol (Visipaque 320) 100 ml 1X ONCE IART 03/26/21 09:30 03/26/21 09:32 DC 03/26/21 09:44 Lidocaine HCl (Lidocaine 1% 20ml Vial) 10 ml 1X ONCE INJ 03/26/21 09:30 03/26/21 09:32 DC 03/26/21 09:45 Furosemide (Lasix) 40 mg 1X ONCE IVP 03/26/21 10:00 03/26/21 10:01 DC 03/26/21 09:35 Images: LHC and RHC 03/26/21: "1. Severe biventricular volume overload. 2. Secondary pulmonary HTN (mPA 42 mm Hg) 3. Normal cardiac output. 4. Probable mixed Mild to Moderate aortic stenosis and insufficiency (Pull back peak to peak gradient of 25 mm Hg, MG of 22 mm Hg) - 6Fr TIG catheter easily able to cross valve with Jtip guide wire. 5. 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 Recommendations 1. Plan for aggrressive diuresis 2. Once patient is euvolemic, reassess need for high risk PCI and further evaluation of aortic valve with JENIFFER. Given that patient is wheel chair bound and lives in a care home and is currently free of angina with preserved EF, he may be best served with medical therapy. Discussed with family. Will consider outpt referral to CT surgery for formal consultation. " Justifications for Admission Other Justification LENNOX GROSS MD Mar 26, 2021 14:00
[2021-03-26] MEDS: ATORVASTATIN CALCIUM 20 MG TABLET PO SCH (21:04)
[2021-03-26] MEDS: INSULIN GLARGINE SYRINGE. SQ SCH (21:09)
[2021-03-27 02:04] VITALS: BP 142/81
[2021-03-27 04:42] LABS: BASO % 0 % (0-3); EOS % 0 % (0-3); HEMATOCRIT 37.3 % (39.0-53.0); HEMOGLOBIN 12.6 g/dL (13.0-17.5); LYMPH # 0.6 x10^3/uL (1.0-4.8); LYMPH % 7 % (24-48); MEAN CORPUSCULAR HEMOGLOBIN 31 pg (25-35); MEAN CORPUSCULAR HGB CONC 34 g/dL (31-37); MEAN CORPUSCULAR VOLUME 92 fL (79-100); MONO # 0.4 x10^3/uL (0.0-1.1); MONO % 4 % (0-9); NEUT # 7.8 x10^3/uL (1.8-7.7); NEUT % 89 % (31-73); PLATELET COUNT 242 x10^3/uL (140-400); RED BLOOD COUNT 4.06 x10^6/uL (4.30-5.70); RED CELL DISTRIBUTION WIDTH 13.9 % (11.5-14.5); WHITE BLOOD COUNT 8.7 x10^3/uL (4.0-11.0)
[2021-03-27 05:08] LABS: CREATININE 0.9 mg/dL (0.7-1.3); GFR 81.4; MAGNESIUM 2.2 mg/dL (1.8-2.4); POTASSIUM 3.9 mmol/L (3.5-5.1)
[2021-03-27] MEDS: PIPERACILLIN/TAZOBACTAM 4.5 GM in IV NORMAL SALINE 100ML 100 ML IV SCH ×3 (05:45→17:19)
[2021-03-27] MEDS: metFORMIN XR 500 MG TAB.ER.24H PO SCH (07:22)
[2021-03-27 07:40] VITALS: BP 141/79
[2021-03-27] MEDS: IPRATRPIUM/ALBUTEROL 0.5/2.5MG 3 ML NEBU. NEB SCH ×4 (07:40→16:06)
[2021-03-27] MEDS: CETIRIZINE HCL 10 MG TABLET. PO SCH (08:35)
[2021-03-27] MEDS: TAMSULOSIN 0.4 MG CAP.ER.24H. PO SCH (08:35)
[2021-03-27] MEDS: MULTIVITAMIN with MINERAL TABLET. PO SCH (08:35)
[2021-03-27] MEDS: methylPREDNISolone SOD SUCC PF 40 MG/ML VIAL. IV SCH ×2 (08:35→21:23)
[2021-03-27] MEDS: AMIODARONE HCL 200 MG TABLET. PO SCH (08:35)
[2021-03-27] MEDS: CITALOPRAM 10 MG TABLET. PO SCH (08:35)
[2021-03-27] MEDS: METOPROLOL TART IMMED RELEASE 25 MG TABLET. PO SCH ×2 (08:36→20:59)
[2021-03-27] MEDS: DOXYCYCLINE HYCLATE 100 MG in IV DEXTROSE 5% 100ML 100 ML IV SCH ×2 (08:36→21:22)
[2021-03-27] MEDS: POLYETHYLENE GLYCOL 3350 17 GM PACKET. PO SCH (08:36)
[2021-03-27] MEDS: LACTOBACILLUS RHAMNOSUS GG 1 CAPSULE. PO SCH ×2 (08:36→20:59)
[2021-03-27] MEDS: FINASTERIDE 5 MG TABLET. PO SCH (08:36)
[2021-03-27] MEDS: INSULIN LISPRO 300 UNITS/3 ML VIAL. SQ SCH ×3 (08:52→17:24)
[2021-03-27 10:00] VITALS: BP 117/72
--- NOTE | 2021-03-27 11:24 | PDOC ---
[facility] [facility] PROGRESS NOTE Date of Service DOS: DATE: 03/27/21 TIME: 11:23 Chief Complaint Chief Complaint A/P: Acute respiratory failure with hypoxia - acute exacerbation of COPD and possibly heart failure. Patient is a limited historian. We will continue pulmonary medications. BIPAP prn S/p Permanent pacemaker Hyperlipidemia. Will check lab. History of a probable CVA and a possible seizure disorder - wheelchair bound and SNF resident at baseline Elevated glucose of 200. Continue present treatments and monitor. Hyponatremia Elevated bilirubin Severe aortic stenosis - will need outpatient evaluation Mild mitral stenosis Echo 03/23/2021: The left ventricle is normal size. The left ventricular systolic function is normal. LV ejection fraction is 55 to 60%. There is mild concentric left ventricular hypertrophy. The aortic valve is moderately to severely calcified. There is moderate to severe valvular aortic stenosis. Calculated aortic valve area is 0.8 cm2 with maximum pressure gradient of 39 mmHg and mean pressure gradient of 22 mmHg. Doppler and Color Flow revealed no significant aortic regurgitation. There is mild mitral valve stenosis. Calculated mitral valve area is 1.3 cm2 with maximum pressure gradient of 19 mmHg and mean pressure gradient of 8 mmHg. Doppler and Color-flow revealed mild mitral regurgitation. Doppler and Color Flow revealed mild tricuspid regurgitation. The PA pressure was estimated at 46 mmHg. FEN - Cardiac diet PPX - heparin FULL CODE Dispo - inpatient History of Present Illness History of Present Illness Mr Griffith is a 80-year-old male who has COPD and congestive heart failure and a previous stroke who presented with shortness of breath, was noted to have an O2 sat around 70% at his SNF. He was also placed on CPAP when he got to the ER. His EKG showed some sinus tachycardia. The patient has now been admitted to the medical floor, where we are treating him for his COPD and CHF. 03/23: O2 saturations improved on BIPAP, now on NCO2 6 l/min. Hollins placed for urinary retention. He is still confused. 03/24: Echo with severe aortic stenosis and mild mitral stenosis. Less confused. Tolerated BiPAP well. Still on O2. Requiring 4 L nasal cannula to maintain O2 saturations 91%. 03/25: Wore BiPAP overnight well still required 4 L nasal cannula O2. Pacer inte rrogated this morning 100% A. fib. 03/26: Afebrile overnight. Still required BiPAP overnight and 4 L nasal cannula oxygen at rest. To the left and right heart cath today with cardiology findings of triple-vessel disease with left main disease as well as biventricular overload plan for aggressive diuresis. Discussed with patient and significant other bedside given his functional status he is still like a formal outpatient CT surgery consultation at some point in the future after returning to SNF. Still require approximately 3 additional days of diuresis likely. Afebrile. Still requiring O2 support with BiPAP overnight. Needing further aggressive diuresis. Still short of breath and swollen Vitals/I&O Vitals/I&O: Vital Signs Date Time Temp Pulse Resp B/P (MAP) Pulse Ox O2 Delivery O2 Flow Rate FiO2 03/27/21 10:00 98.9 80 18 117/72 (87) 96 Nasal Cannula 2.5 98.9 I & O 03/26/21 03/26/21 03/27/21 15:00 23:00 07:00 Intake Total 300 ml 100 ml 300 ml Output Total 1700 ml 725 ml 475 ml Balance -1400 ml -625 ml -175 ml Physical Exam General: mild distress Heart: Regular rate Abdomen: Normal bowel sounds Labs Labs: Laboratory Tests Test 03/26/21 12:07 03/26/21 17:12 03/26/21 20:36 03/27/21 04:15 Glucose (Fingerstick) 211 mg/dL (70-99) 224 mg/dL (70-99) 322 mg/dL (70-99) White Blood Count 8.7 x10^3/uL (4.0-11.0) Red Blood Count 4.06 x10^6/uL (4.30-5.70) Hemoglobin 12.6 g/dL (13.0-17.5) Hematocrit 37.3 % (39.0-53.0) Mean Corpuscular Volume 92 fL (79-100) Mean Corpuscular Hemoglobin 31 pg (25-35) Mean Corpuscular Hemoglobin Concent 34 g/dL (31-37) Red Cell Distribution Width 13.9 % (11.5-14.5) Platelet Count 242 x10^3/uL (140-400) Neutrophils (%) (Auto) 89 % (31-73) Lymphocytes (%) (Auto) 7 % (24-48) Monocytes (%) (Auto) 4 % (0-9) Eosinophils (%) (Auto) 0 % (0-3) Basophils (%) (Auto) 0 % (0-3) Neutrophils # (Auto) 7.8 x10^3/uL (1.8-7.7) Lymphocytes # (Auto) 0.6 x10^3/uL (1.0-4.8) Monocytes # (Auto) 0.4 x10^3/uL (0.0-1.1) Eosinophils # (Auto) 0.0 x10^3/uL (0.0-0.7) Basophils # (Auto) 0.0 x10^3/uL (0.0-0.2) Sodium Level 137 mmol/L (136-145) Potassium Level 3.9 mmol/L (3.5-5.1) Chloride Level 97 mmol/L (98-107) Carbon Dioxide Level 33 mmol/L (21-32) Anion Gap 7 (6-14) Blood Urea Nitrogen 25 mg/dL (8-26) Creatinine 0.9 mg/dL (0.7-1.3) Estimated GFR (Cockcroft-Gault) 81.4 Glucose Level 263 mg/dL (70-99) Calcium Level 8.0 mg/dL (8.5-10.1) Magnesium Level 2.2 mg/dL (1.8-2.4) Test 03/27/21 07:50 Glucose (Fingerstick) 222 mg/dL (70-99) Assessment and Plan Assessmemt and Plan Problems Medical Problems: (1) Wide-complex tachycardia Status: Acute Comment Review of Relevant I have reviewed the following items evin (where applicable) has been applied. Justifications for Admission Other Justification LENNOX GROSS MD Mar 27, 2021 11:24
--- NOTE | 2021-03-27 11:38 | PDOC ---
KINGSTON SAVAGE SENIOR SCRUM MASTER 03/27/21 1138: CARDIO Progress Notes Date and Time Date of Service 03/27/2021 Time of Evaluation 1030 Subjective Subjective: No Chest Pain, No Palpitations, Other (SOA better) Vitals Vitals Vital Signs Date Time Temp Pulse Resp B/P (MAP) Pulse Ox O2 Delivery O2 Flow Rate FiO2 03/27/21 10:00 98.9 80 18 117/72 (87) 96 Nasal Cannula 2.5 98.9 Weight Weight [ ] Input and Output Intake and Output Intake and Output 03/27/21 07:00 Intake Total 700 ml Output Total 2900 ml Balance -2200 ml Intake Oral 500 ml IV Total 200 ml Output Urine Total 2900 ml Laboratory Labs Laboratory Tests Test 03/26/21 12:07 03/26/21 17:12 03/26/21 20:36 03/27/21 04:15 Glucose (Fingerstick) 211 mg/dL (70-99) 224 mg/dL (70-99) 322 mg/dL (70-99) White Blood Count 8.7 x10^3/uL (4.0-11.0) Red Blood Count 4.06 x10^6/uL (4.30-5.70) Hemoglobin 12.6 g/dL (13.0-17.5) Hematocrit 37.3 % (39.0-53.0) Mean Corpuscular Volume 92 fL (79-100) Mean Corpuscular Hemoglobin 31 pg (25-35) Mean Corpuscular Hemoglobin Concent 34 g/dL (31-37) Red Cell Distribution Width 13.9 % (11.5-14.5) Platelet Count 242 x10^3/uL (140-400) Neutrophils (%) (Auto) 89 % (31-73) Lymphocytes (%) (Auto) 7 % (24-48) Monocytes (%) (Auto) 4 % (0-9) Eosinophils (%) (Auto) 0 % (0-3) Basophils (%) (Auto) 0 % (0-3) Neutrophils # (Auto) 7.8 x10^3/uL (1.8-7.7) Lymphocytes # (Auto) 0.6 x10^3/uL (1.0-4.8) Monocytes # (Auto) 0.4 x10^3/uL (0.0-1.1) Eosinophils # (Auto) 0.0 x10^3/uL (0.0-0.7) Basophils # (Auto) 0.0 x10^3/uL (0.0-0.2) Sodium Level 137 mmol/L (136-145) Potassium Level 3.9 mmol/L (3.5-5.1) Chloride Level 97 mmol/L (98-107) Carbon Dioxide Level 33 mmol/L (21-32) Anion Gap 7 (6-14) Blood Urea Nitrogen 25 mg/dL (8-26) Creatinine 0.9 mg/dL (0.7-1.3) Estimated GFR (Cockcroft-Gault) 81.4 Glucose Level 263 mg/dL (70-99) Calcium Level 8.0 mg/dL (8.5-10.1) Magnesium Level 2.2 mg/dL (1.8-2.4) Test 03/27/21 07:50 Glucose (Fingerstick) 222 mg/dL (70-99) Physical Exam HEENT: Neck Supple W Full Motion Chest: Symmetric LUNGS: Other (diminished bases) Heart: RRR (SR) Abdomen: Soft N/T, Other (obese) Extremities: Other (1+ bilateral LE edema ) Neurology: alert, oriented, follow commands, other (forgetful) Assessment Assessment 1. Acute respiratory failure with CHF, AE COPD 2. PAFIB/flutter with RVR; Maintaining SR 3. Acute on chronic diastolic CHF: RHC revealed severe BiV overload 4. SSS s/p PPM ([facility]) 5. Hypertension; controlled 6. Hyperlipidemia; statin 7. Diabetes, II 8. H/o CVA 9. H/o Seizures 10. moderate 11. Secondary pulmonary HTN 12. 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 Recommendations Lasix therapy Continue Amiodarone therapy and Metoprolol for rate control. Eliquis resume for stroke prevention Secondary prevention measures, optimize statin. ASA Once patient is euvolemic, reassess need for high risk PCI and further evaluation of aortic valve with JENIFFER. Given that patient is wheel chair bound and lives in a residential and is currently free of angina with preserved EF, he may be best served with medical therapy. Discussed with family. Will consider outpt referral to CT surgery for formal consultation Justicifation of Admission Dx: Justifications for Admission: Justification of Admission Dx: Yes ELA BUENROSTRO MD 03/29/21 1319: CARDIO Progress Notes Plan Plan Late entry for 03/27/21 Pt. seen and examined. Agree with above ASSOCIATE PROFESSOR OF BIOLOGY note. Continue aggressive diuresis. Outpt CT surgery consultation. KINGSTON SAVAGE APRN Mar 27, 2021 11:38 ELA BUENROSTRO MD Mar 29, 2021 13:19
[2021-03-27] MEDS ORDERED: FUROSEMIDE 40 MG/4 ML VIAL. IVP ONE (12:00)
[2021-03-27] MEDS: APIXABAN 5 MG TABLET. PO SCH ×2 (12:37→20:59)
--- NOTE | 2021-03-27 12:59 | NUR ---
SS following up with discharge planning. SS reviewed pt chart and discussed with pt RN. Pt is currently requiring oxygen at two and a half liters nasal canula. COVID19 negative. Pt on IV Lasix, IV Zosyn, IV Doxycycline, and IV Solu-Medrol. Pt had heart cath on 03/26/2021. PT/OT ordered. Pt is LTC resident from [facility], ; fax [phone], and is able to return when medically ready for discharge. SS will continue to follow for discharge planning.
[2021-03-27 14:30] VITALS: BP 129/68
[2021-03-27 19:00] VITALS: BP 124/59
[2021-03-27] MEDS: ATORVASTATIN CALCIUM 20 MG TABLET PO SCH (20:59)
[2021-03-27] MEDS: INSULIN GLARGINE SYRINGE. SQ SCH (21:02)
[2021-03-27 22:59] VITALS: BP 129/67
[2021-03-28] MEDS: PIPERACILLIN/TAZOBACTAM 4.5 GM in IV NORMAL SALINE 100ML 100 ML IV SCH ×2 (00:18→05:58)
[2021-03-28 03:05] VITALS: BP 130/74
[2021-03-28 05:12] LABS: CALCIUM 8.5 mg/dL (8.5-10.1); CREATININE 0.8 mg/dL (0.7-1.3); GFR 93.3; POTASSIUM 4.2 mmol/L (3.5-5.1)
[2021-03-28] MEDS: IPRATRPIUM/ALBUTEROL 0.5/2.5MG 3 ML NEBU. NEB SCH ×4 (06:02→18:26)
[2021-03-28 07:00] VITALS: BP 130/73
--- NOTE | 2021-03-28 08:17 | PDOC ---
[facility] PROGRESS NOTE Date of Service DOS: DATE: 03/28/21 TIME: 08:11 Chief Complaint Chief Complaint A/P: Acute respiratory failure with hypoxia - acute exacerbation of COPD and acute congestive heart failure. Continue pulmonary medications. BIPAP prn as well as diuresis Acute on chronic diastolic CHF - on 03/26 RHC revealed severe BiV overload Paroxysmal AFIB - pacer with 100% afib paced S/p Permanent pacemaker ([employer]) Hyperlipidemia. Will check lab. 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 Hyponatremia - likely hypervolemic, improving Elevated bilirubin - due to constipation Severe aortic stenosis - will need outpatient evaluation Mild mitral stenosis Echo 03/23/2021: The left ventricle is normal size. The left ventricular systolic function is normal. LV ejection fraction is 55 to 60%. There is mild concentric left ventricular hypertrophy. The aortic valve is moderately to severely calcified. There is moderate to severe valvular aortic stenosis. Calculated aortic valve area is 0.8 cm2 with maximum pressure gradient of 39 mmHg and mean pressure gradient of 22 mmHg. Doppler and Color Flow revealed no significant aortic regurgitation. There is mild mitral valve stenosis. Calculated mitral valve area is 1.3 cm2 with maximum pressure gradient of 19 mmHg and mean pressure gradient of 8 mmHg. Doppler and Color-flow revealed mild mitral regurgitation. Doppler and Color Flow revealed mild tricuspid regurgitation. The PA pressure was estimated at 46 mmHg. FEN - Cardiac diet PPX - heparin FULL CODE Dispo - inpatient History of Present Illness History of Present Illness Mr Griffith is a 80-year-old male who has COPD and congestive heart failure and a previous stroke who presented with shortness of breath, was noted to have an O2 sat around 70% at his SNF. He was also placed on CPAP when he got to the ER. His EKG showed some sinus tachycardia. The patient has now been admitted to the medical floor, where we are treating him for his COPD and CHF. 03/23: O2 saturations improved on BIPAP, now on NCO2 6 l/min. Hollins placed for urinary retention. He is still confused. 03/24: Echo with severe aortic stenosis and mild mitral stenosis. Less confused. Tolerated BiPAP well. Still on O2. Requiring 4 L nasal cannula to maintain O2 saturations 91%. 03/25: Wore BiPAP overnight well still required 4 L nasal cannula O2. Pacer interrogated this morning 100% A. fib. 03/26: Afebrile overnight. Still required BiPAP overnight and 4 L nasal cannula oxygen at rest. To the left and right heart cath today with cardiology findings of triple-vessel disease with left main disease as well as biventricular overload plan for aggressive diuresis. Discussed with patient and significant other bedside given his functional status he is still like a formal outpatient CT surgery consultation at some point in the future after returning to SNF. Still require approximately 3 additional days of diuresis likely. 03/27: Afebrile. Still requiring O2 support with BiPAP overnight. Needing further aggressive diuresis. Still short of breath and swollen. 3.8L UOP today Afebrile, still requiring O2 and BIPAP support. 2.1 L uop today. Glucose in 200s requiring correction. Vitals/I&O Vitals/I&O: Vital Signs Date Time Temp Pulse Resp B/P (MAP) Pulse Ox O2 Delivery O2 Flow Rate FiO2 03/28/21 05:58 95 BiPAP/CPAP 03/28/21 03:05 98.1 80 20 130/74 (92) 98.1 03/27/21 20:30 4.0 I & O 03/27/21 03/27/21 03/28/21 15:00 23:00 07:00 Intake Total 600 ml 240 ml 550 ml Output Total 1250 ml 1300 ml 1250 ml Balance -650 ml -1060 ml -700 ml Physical Exam General: mild distress Heart: Regular rate Abdomen: Normal bowel sounds Labs Labs: Laboratory Tests Test 03/27/21 11:33 03/27/21 16:52 03/27/21 20:28 03/28/21 04:30 Glucose (Fingerstick) 278 mg/dL (70-99) 311 mg/dL (70-99) 326 mg/dL (70-99) Sodium Level 136 mmol/L (136-145) Potassium Level 4.2 mmol/L (3.5-5.1) Chloride Level 97 mmol/L (98-107) Carbon Dioxide Level 31 mmol/L (21-32) Anion Gap 8 (6-14) Blood Urea Nitrogen 26 mg/dL (8-26) Creatinine 0.8 mg/dL (0.7-1.3) Estimated GFR (Cockcroft-Gault) 93.3 Glucose Level 266 mg/dL (70-99) Calcium Level 8.5 mg/dL (8.5-10.1) Test 03/28/21 07:47 Glucose (Fingerstick) 251 mg/dL (70-99) Assessment and Plan Assessmemt and Plan Problems Medical Problems: (1) Wide-complex tachycardia Status: Acute Comment Review of Relevant I have reviewed the following items evin (where applicable) has been applied. Medications: Current Medications Medications (Trade) Dose Ordered Sig/Darius Route PRN Reason Start Time Stop Time Status Last Admin Dose Admin Furosemide (Lasix) 60 mg 1X ONCE IVP 03/27/21 12:00 03/27/21 12:19 DC 03/27/21 13:12 Atorvastatin Calcium (Lipitor) 40 mg QHS PO 03/27/21 21:00 03/27/21 20:59 Apixaban (Eliquis) 5 mg BID PO 03/27/21 12:00 03/27/21 20:59 Justifications for Admission Other Justification LENNOX GROSS MD Mar 28, 2021 08:16
[2021-03-28] MEDS: ANTI-COAG MONITOR BY PHARMACY. MC PRN (08:30)
[2021-03-28] MEDS: APIXABAN 5 MG TABLET. PO SCH ×2 (08:48→20:40)
[2021-03-28] MEDS: ASPIRIN ENTERIC COATED 81 MG TABLET.DR. PO SCH (08:48)
[2021-03-28] MEDS: metFORMIN XR 500 MG TAB.ER.24H PO SCH (08:48)
[2021-03-28] MEDS: MULTIVITAMIN with MINERAL TABLET. PO SCH (08:48)
[2021-03-28] MEDS: POTASSIUM CHLORIDE 20 MEQ TABLET.ER. PO SCH (08:48)
[2021-03-28] MEDS: CETIRIZINE HCL 10 MG TABLET. PO SCH (08:48)
[2021-03-28] MEDS: LACTOBACILLUS RHAMNOSUS GG 1 CAPSULE. PO SCH ×2 (08:49→20:40)
[2021-03-28] MEDS: AMIODARONE HCL 200 MG TABLET. PO SCH (08:49)
[2021-03-28] MEDS: FINASTERIDE 5 MG TABLET. PO SCH (08:49)
[2021-03-28] MEDS: CITALOPRAM 10 MG TABLET. PO SCH (08:49)
[2021-03-28] MEDS: TAMSULOSIN 0.4 MG CAP.ER.24H. PO SCH (08:50)
[2021-03-28] MEDS: METOPROLOL TART IMMED RELEASE 25 MG TABLET. PO SCH ×2 (08:50→20:41)
[2021-03-28] MEDS: FUROSEMIDE 40 MG/4 ML VIAL. IVP SCH (08:50)
[2021-03-28] MEDS: DOXYCYCLINE HYCLATE 100 MG TABLET PO SCH ×2 (08:54→20:40)
[2021-03-28] MEDS: predniSONE 20 MG TABLET PO SCH (08:54)
[2021-03-28] MEDS ORDERED: METOPROLOL SUCC 24HR ER 25 MG TAB.ER.24H. PO SCH (09:00)
[2021-03-28] MEDS: POLYETHYLENE GLYCOL 3350 17 GM PACKET. PO SCH (09:00)
[2021-03-28] MEDS: INSULIN LISPRO 300 UNITS/3 ML VIAL. SQ SCH ×3 (09:10→18:16)
[2021-03-28 11:00] VITALS: BP 124/75
[2021-03-28 14:29] VITALS: BP 124/72
--- NOTE | 2021-03-28 14:44 | PDOC ---
PROGRESS NOTES Date of Service: DATE: 03/28/21 TIME: 14:40 Subjective Subjective Denied any chest pain. Shortness of breath improved. Objective Objective Vital Signs Date Time Temp Pulse Resp B/P (MAP) Pulse Ox O2 Delivery O2 Flow Rate FiO2 03/28/21 14:29 97.8 80 16 124/72 (89) 97 Nasal Cannula 5.0 97.8 Intake and Output 03/28/21 07:00 Intake Total 1390 ml Output Total 3800 ml Balance -2410 ml Intake Oral 1190 ml IV Total 200 ml Output Urine Total 3800 ml Stool Total 0 ml Physical Exam Abdomen: Normal bowel sounds Heart: Regular rate Extremities: No edema General: Alert HEENT: Atraumatic Lungs: Other (Mildly decreased breath sounds) MUSCULOSKELETAL: Other Assessment Assessment 1. Acute respiratory failure secondary to combination of acute on chronic diastolic heart failure and AE COPD 2. PAFIB/flutter with RVR; Maintaining SR. Continue amiodarone for rhythm maintenance and Eliquis for stroke prophylaxis 3. Acute on chronic diastolic CHF: RHC revealed severe BiV overload: Improved with diuresis 4. SSS s/p PPM ([facility]): Clinically stable 5. Hypertension; controlled 6. Hyperlipidemia; statin 7. Diabetes, II 8. H/o CVA 9. H/o Seizures 10. moderate 11. Secondary pulmonary HTN 12. 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 Presently chest pain-free. Possible high risk PCI referral 13. NSVT noted on telemetry. Magnesium level normal. We will continue to monitor. Plan Plan of Care Problems Medical Problems: (1) Wide-complex tachycardia Status: Acute Comment Review of Relevant I have reviewed the following items evin (where applicable) has been applied. Labs Laboratory Tests Test 03/27/21 16:52 03/27/21 20:28 03/28/21 04:30 03/28/21 07:47 Glucose (Fingerstick) 311 mg/dL (70-99) 326 mg/dL (70-99) 251 mg/dL (70-99) Sodium Level 136 mmol/L (136-145) Potassium Level 4.2 mmol/L (3.5-5.1) Chloride Level 97 mmol/L (98-107) Carbon Dioxide Level 31 mmol/L (21-32) Anion Gap 8 (6-14) Blood Urea Nitrogen 26 mg/dL (8-26) Creatinine 0.8 mg/dL (0.7-1.3) Estimated GFR (Cockcroft-Gault) 93.3 Glucose Level 266 mg/dL (70-99) Calcium Level 8.5 mg/dL (8.5-10.1) Magnesium Level 2.4 mg/dL (1.8-2.4) Test 03/28/21 12:11 Glucose (Fingerstick) 248 mg/dL (70-99) Medications Current Medications Aspirin (Ecotrin) 81 mg DAILYWBKFT PO Last administered on 03/28/21at 08:48; Start 03/28/21 at 08:00 Atorvastatin Calcium (Lipitor) 40 mg QHS PO Last administered on 03/27/21at 20:59; Start 03/27/21 at 21:00 Doxycycline Hyclate (Vibra-Tab) 100 mg BID PO Last administered on 03/28/21at 08:54; Start 03/28/21 at 09:00; Stop 03/31/21 at 08:59 Furosemide (Lasix) 40 mg DAILY IVP Last administered on 03/28/21at 08:50; Start 03/28/21 at 09:00 Metoprolol Succinate (Toprol Xl) 25 mg DAILY PO ; Start 03/28/21 at 09:00; Stop 03/27/21 at 11:52; Status DC Potassium Chloride (Klor-Con) 20 meq DAILYWBKFT PO Last administered on 03/28/21at 08:48; Start 03/28/21 at 08:00 Prednisone (Prednisone) 20 mg DAILY PO Last administered on 03/28/21at 08:54; Start 03/28/21 at 09:00 Vitals/I & O Vital Sign - Last 24 Hours 03/27/21 03/27/21 03/27/21 03/27/21 15:49 16:07 19:00 20:30 Temp 98.8 98.8 Pulse 88 Resp 17 B/P (MAP) 124/59 (80) Pulse Ox 96 91 O2 Delivery Nasal Cannula Nasal Cannula Nasal Cannula Nasal Cannula O2 Flow Rate 2.5 2.5 2.5 4.0 03/27/21 03/27/21 03/27/21 03/28/21 20:59 21:20 22:59 00:05 Temp 97.3 97.3 Pulse 88 79 Resp 20 B/P (MAP) 124/59 129/67 (87) Pulse Ox 94 96 96 O2 Delivery BiPAP/CPAP BiPAP/CPAP BiPAP/CPAP 03/28/21 03/28/21 03/28/21 03/28/21 03:05 03:51 05:58 07:00 Temp 98.1 98.1 98.1 98.1 Pulse 80 80 Resp 20 18 B/P (MAP) 130/74 (92) 130/73 (92) Pulse Ox 95 96 95 96 O2 Delivery BiPAP/CPAP BiPAP/CPAP BiPAP/CPAP Nasal Cannula O2 Flow Rate 5.0 03/28/21 03/28/21 03/28/21 03/28/21 08:00 08:49 08:49 08:50 Pulse 80 80 80 B/P (MAP) 130/73 130/73 130/73 O2 Delivery Nasal Cannula O2 Flow Rate 4.0 03/28/21 03/28/21 03/28/21 11:00 11:36 14:29 Temp 98.0 97.8 98.0 97.8 Pulse 80 80 Resp 18 16 B/P (MAP) 124/75 (91) 124/72 (89) Pulse Ox 98 98 97 O2 Delivery Nasal Cannula High Flow Nasal Cannula Nasal Cannula O2 Flow Rate 5.0 5.0 5.0 Intake and Output 03/27/21 03/27/21 03/28/21 15:00 23:00 07:00 Intake Total 600 ml 240 ml 550 ml Output Total 1250 ml 1300 ml 1250 ml Balance -650 ml -1060 ml -700 ml LATANYA GUTIERREZ MD Mar 28, 2021 14:44
[2021-03-28 19:30] VITALS: BP 118/73
[2021-03-28] MEDS: ATORVASTATIN CALCIUM 20 MG TABLET PO SCH (20:41)
[2021-03-28] MEDS: INSULIN GLARGINE SYRINGE. SQ SCH (21:01)
[2021-03-28 23:15] VITALS: BP 130/72
[2021-03-29 03:25] VITALS: BP 118/68
[2021-03-29 05:25] LABS: CALCIUM 8.4 mg/dL (8.5-10.1); CREATININE 0.8 mg/dL (0.7-1.3); GFR 93.3; POTASSIUM 3.9 mmol/L (3.5-5.1)
[2021-03-29 07:00] VITALS: BP 147/78
[2021-03-29] MEDS: IPRATRPIUM/ALBUTEROL 0.5/2.5MG 3 ML NEBU. NEB SCH ×4 (07:26→20:07)
[2021-03-29] MEDS: INSULIN LISPRO 300 UNITS/3 ML VIAL. SQ SCH ×3 (08:00→18:30)
[2021-03-29] MEDS: ASPIRIN ENTERIC COATED 81 MG TABLET.DR. PO SCH (09:30)
[2021-03-29] MEDS: metFORMIN XR 500 MG TAB.ER.24H PO SCH (09:30)
[2021-03-29] MEDS: POTASSIUM CHLORIDE 20 MEQ TABLET.ER. PO SCH (09:31)
[2021-03-29] MEDS: FUROSEMIDE 40 MG/4 ML VIAL. IVP SCH (09:31)
[2021-03-29] MEDS: LACTOBACILLUS RHAMNOSUS GG 1 CAPSULE. PO SCH ×2 (09:31→21:50)
[2021-03-29] MEDS: CETIRIZINE HCL 10 MG TABLET. PO SCH (09:31)
[2021-03-29] MEDS: MULTIVITAMIN with MINERAL TABLET. PO SCH (09:32)
[2021-03-29] MEDS: METOPROLOL TART IMMED RELEASE 25 MG TABLET. PO SCH ×2 (09:32→21:50)
[2021-03-29] MEDS: DOXYCYCLINE HYCLATE 100 MG TABLET PO SCH ×2 (09:32→21:50)
[2021-03-29] MEDS: FINASTERIDE 5 MG TABLET. PO SCH (09:33)
[2021-03-29] MEDS: predniSONE 20 MG TABLET PO SCH (09:33)
[2021-03-29] MEDS: AMIODARONE HCL 200 MG TABLET. PO SCH (09:33)
[2021-03-29] MEDS: TAMSULOSIN 0.4 MG CAP.ER.24H. PO SCH (09:33)
[2021-03-29] MEDS: APIXABAN 5 MG TABLET. PO SCH ×2 (09:33→21:50)
[2021-03-29] MEDS: CITALOPRAM 10 MG TABLET. PO SCH (09:33)
[2021-03-29] MEDS: POLYETHYLENE GLYCOL 3350 17 GM PACKET. PO SCH (09:34)
[2021-03-29 11:00] VITALS: BP 125/67
--- NOTE | 2021-03-29 11:00 | PDOC ---
[facility] PROGRESS NOTE Date of Service DOS: DATE: 03/29/21 TIME: 10:59 Chief Complaint Chief Complaint A/P: Acute respiratory failure with hypoxia - acute exacerbation of COPD and acute congestive heart failure. Continue pulmonary medications. BIPAP prn as well as diuresis Acute on chronic diastolic CHF - on 03/26 RHC revealed severe BiV overload Paroxysmal AFIB - pacer with 100% afib paced S/p Permanent pacemaker ([employer]) Hyperlipidemia. Will check lab. 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 Hyponatremia - likely hypervolemic, improving Elevated bilirubin - due to constipation Severe aortic stenosis - will need outpatient evaluation Mild mitral stenosis Echo 03/23/2021: The left ventricle is normal size. The left ventricular systolic function is normal. LV ejection fraction is 55 to 60%. There is mild concentric left ventricular hypertrophy. The aortic valve is moderately to severely calcified. There is moderate to severe valvular aortic stenosis. Calculated aortic valve area is 0.8 cm2 with maximum pressure gradient of 39 mmHg and mean pressure gradient of 22 mmHg. Doppler and Color Flow revealed no significant aortic regurgitation. There is mild mitral valve stenosis. Calculated mitral valve area is 1.3 cm2 with maximum pressure gradient of 19 mmHg and mean pressure gradient of 8 mmHg. Doppler and Color-flow revealed mild mitral regurgitation. Doppler and Color Flow revealed mild tricuspid regurgitation. The PA pressure was estimated at 46 mmHg. FEN - Cardiac diet PPX - heparin FULL CODE Dispo - inpatient History of Present Illness History of Present Illness Mr Griffith is a 80-year-old male who has COPD and congestive heart failure and a previous stroke who presented with shortness of breath, was noted to have an O2 sat around 70% at his SNF. He was also placed on CPAP when he got to the ER. His EKG showed some sinus tachycardia. The patient has now been admitted to the medical floor, where we are treating him for his COPD and CHF. 03/23: O2 saturations improved on BIPAP, now on NCO2 6 l/min. Hollins placed for urinary retention. He is still confused. 03/24: Echo with severe aortic stenosis and mild mitral stenosis. Less confused. Tolerated BiPAP well. Still on O2. Requiring 4 L nasal cannula to maintain O2 saturations 91%. 03/25: Wore BiPAP overnight well still required 4 L nasal cannula O2. Pacer interrogated this morning 100% A. fib. 03/26: Afebrile overnight. Still required BiPAP overnight and 4 L nasal cannula oxygen at rest. To the left and right heart cath today with cardiology findings of triple-vessel disease with left main disease as well as biventricular overload plan for aggressive diuresis. Discussed with patient and significant other bedside given his functional status he is still like a formal outpatient CT surgery consultation at some point in the future after returning to SNF. Still require approximately 3 additional days of diuresis likely. 03/27: Afebrile. Still requiring O2 support with BiPAP overnight. Needing further aggressive diuresis. Still short of breath and swollen. 3.8L UOP today 03/28: Afebrile, still requiring O2 and BIPAP support. 2.1 L uop today. Glucose in 200s requiring correction. Afebrile. On 3 L nasal cannula O2 and overnight BiPAP support. 3.125 L urine output past 24 hours. Glucose improving. Symptomatically he feels little less short of breath. Discussed with cardiology to continue diuresis likely discharge in the next 24 to 48-hour Vitals/I&O Vitals/I&O: Vital Signs Date Time Temp Pulse Resp B/P (MAP) Pulse Ox O2 Delivery O2 Flow Rate FiO2 03/29/21 09:33 84 147/78 03/29/21 07:26 98 High Flow Nasal Cannula 3.0 03/29/21 07:00 98.3 16 98.3 I & O 03/28/21 03/28/21 03/29/21 15:00 23:00 07:00 Intake Total 574 ml 180 ml 200 ml Output Total 2175 ml 950 ml Balance -1601 ml 180 ml -750 ml Physical Exam General: Alert Heart: Regular rate Abdomen: Normal bowel sounds Extremities: No edema Labs Labs: Laboratory Tests Test 03/28/21 12:11 03/28/21 17:12 03/28/21 20:42 03/29/21 04:30 Glucose (Fingerstick) 248 mg/dL (70-99) 232 mg/dL (70-99) 317 mg/dL (70-99) Sodium Level 136 mmol/L (136-145) Potassium Level 3.9 mmol/L (3.5-5.1) Chloride Level 97 mmol/L (98-107) Carbon Dioxide Level 34 mmol/L (21-32) Anion Gap 5 (6-14) Blood Urea Nitrogen 28 mg/dL (8-26) Creatinine 0.8 mg/dL (0.7-1.3) Estimated GFR (Cockcroft-Gault) 93.3 Glucose Level 212 mg/dL (70-99) Calcium Level 8.4 mg/dL (8.5-10.1) Test 03/29/21 08:03 Glucose (Fingerstick) 133 mg/dL (70-99) Assessment and Plan Assessmemt and Plan Problems Medical Problems: (1) Wide-complex tachycardia Status: Acute Comment Review of Relevant I have reviewed the following items evin (where applicable) has been applied. Medications: Current Medications Medications (Trade) Dose Ordered Sig/Darius Route PRN Reason Start Time Stop Time Status Last Admin Dose Admin Insulin Glargine (Lantus Syringe) 42 unit QHS SQ 03/28/21 21:00 03/28/21 21:01 Justifications for Admission Other Justification LENNOX GROSS MD Mar 29, 2021 11:00
--- NOTE | 2021-03-29 12:57 | PDOC ---
PROGRESS NOTES Date of Service: DATE: 03/29/21 TIME: 12:56 Subjective Subjective Dyspnea improved. Denied any chest pain. Objective Objective Vital Signs Date Time Temp Pulse Resp B/P (MAP) Pulse Ox O2 Delivery O2 Flow Rate FiO2 03/29/21 11:30 97 High Flow Nasal Cannula 3.0 03/29/21 11:00 98.6 80 16 125/67 (86) 98.6 Intake and Output 03/29/21 07:00 Intake Total 954 ml Output Total 3125 ml Balance -2171 ml Intake Oral 854 ml IV Total 100 ml Output Urine Total 3125 ml # Bowel Movements 2 Physical Exam Abdomen: Normal bowel sounds Heart: Regular rate Extremities: No edema General: Alert HEENT: Atraumatic Lungs: Other (Mildly decreased breath sounds) MUSCULOSKELETAL: Other Assessment Assessment 1. Acute respiratory failure secondary to combination of acute on chronic diastolic heart failure and AE COPD 2. PAFIB/flutter with RVR; Maintaining SR. Continue amiodarone for rhythm maintenance and Eliquis for stroke prophylaxis 3. Acute on chronic diastolic CHF: RHC revealed severe BiV overload: Improved with diuresis 4. SSS s/p PPM ([facility]): Clinically stable 5. Hypertension; controlled 6. Hyperlipidemia; statin 7. Diabetes, II 8. H/o CVA 9. H/o Seizures 10. moderate 11. Secondary pulmonary HTN 12. 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 Presently chest pain-free. Possible high risk PCI referral 13. NSVT noted on telemetry. Magnesium level normal. We will continue to monitor. Plan Plan of Care Problems Medical Problems: (1) Wide-complex tachycardia Status: Acute Comment Review of Relevant I have reviewed the following items evin (where applicable) has been applied. Labs Laboratory Tests Test 03/28/21 17:12 03/28/21 20:42 03/29/21 04:30 03/29/21 08:03 Glucose (Fingerstick) 232 mg/dL (70-99) 317 mg/dL (70-99) 133 mg/dL (70-99) Sodium Level 136 mmol/L (136-145) Potassium Level 3.9 mmol/L (3.5-5.1) Chloride Level 97 mmol/L (98-107) Carbon Dioxide Level 34 mmol/L (21-32) Anion Gap 5 (6-14) Blood Urea Nitrogen 28 mg/dL (8-26) Creatinine 0.8 mg/dL (0.7-1.3) Estimated GFR (Cockcroft-Gault) 93.3 Glucose Level 212 mg/dL (70-99) Calcium Level 8.4 mg/dL (8.5-10.1) Test 03/29/21 11:44 Glucose (Fingerstick) 189 mg/dL (70-99) Medications Current Medications Insulin Glargine (Lantus Syringe) 42 unit QHS SQ Last administered on 03/28/21at 21:01; Start 03/28/21 at 21:00 Vitals/I & O Vital Sign - Last 24 Hours 03/28/21 03/28/21 03/28/21 03/28/21 14:29 16:04 18:26 19:30 Temp 97.8 97.6 97.8 97.6 Pulse 80 80 Resp 16 22 B/P (MAP) 124/72 (89) 118/73 (88) Pulse Ox 97 100 98 94 O2 Delivery Nasal Cannula High Flow Nasal Cannula High Flow Nasal Cannula Nasal Cannula O2 Flow Rate 5.0 4.0 3.0 3.0 03/28/21 03/28/21 03/28/21 03/28/21 20:10 20:41 23:15 23:33 Temp 97.7 97.7 Pulse 80 80 Resp 22 B/P (MAP) 118/73 130/72 (91) Pulse Ox 98 98 O2 Delivery Nasal Cannula Nasal Cannula BiPAP/CPAP O2 Flow Rate 4.0 3.0 03/29/21 03/29/21 03/29/21 03/29/21 03:25 07:00 07:26 09:32 Temp 97.1 98.3 97.1 98.3 Pulse 80 84 84 Resp 21 16 B/P (MAP) 118/68 (85) 147/78 (101) 147/78 Pulse Ox 97 97 98 O2 Delivery Nasal Cannula Nasal Cannula High Flow Nasal Cannula O2 Flow Rate 3.0 3.0 3.0 03/29/21 03/29/21 03/29/21 03/29/21 09:32 09:33 11:00 11:30 Temp 98.6 98.6 Pulse 84 84 80 Resp 16 B/P (MAP) 147/78 147/78 125/67 (86) Pulse Ox 98 97 O2 Delivery Nasal Cannula High Flow Nasal Cannula O2 Flow Rate 3.0 3.0 Intake and Output 03/28/21 03/28/21 03/29/21 15:00 23:00 07:00 Intake Total 574 ml 180 ml 200 ml Output Total 2175 ml 950 ml Balance -1601 ml 180 ml -750 ml LATANYA GUTIERREZ MD Mar 29, 2021 12:57
[2021-03-29 15:00] VITALS: BP 112/57
[2021-03-29 19:22] VITALS: BP 126/67
[2021-03-29] MEDS: ATORVASTATIN CALCIUM 20 MG TABLET PO SCH (21:50)
[2021-03-29] MEDS: INSULIN GLARGINE SYRINGE. SQ SCH (21:53)
[2021-03-29 22:39] VITALS: BP 115/63
[2021-03-30 02:56] VITALS: BP 137/69
[2021-03-30 06:10] LABS: CALCIUM 8.5 mg/dL (8.5-10.1); CREATININE 0.7 mg/dL (0.7-1.3); GFR 108.8; POTASSIUM 4.2 mmol/L (3.5-5.1)
[2021-03-30 07:00] VITALS: BP 126/64
[2021-03-30] MEDS: IPRATRPIUM/ALBUTEROL 0.5/2.5MG 3 ML NEBU. NEB SCH ×2 (07:39→11:30)
[2021-03-30] MEDS: INSULIN LISPRO 300 UNITS/3 ML VIAL. SQ SCH ×2 (08:00→11:59)
[2021-03-30] MEDS: TAMSULOSIN 0.4 MG CAP.ER.24H. PO SCH (08:36)
[2021-03-30] MEDS: MULTIVITAMIN with MINERAL TABLET. PO SCH (08:36)
[2021-03-30] MEDS: metFORMIN XR 500 MG TAB.ER.24H PO SCH (08:36)
[2021-03-30] MEDS: LACTOBACILLUS RHAMNOSUS GG 1 CAPSULE. PO SCH (08:36)
[2021-03-30] MEDS: POLYETHYLENE GLYCOL 3350 17 GM PACKET. PO SCH (08:36)
[2021-03-30] MEDS: POTASSIUM CHLORIDE 20 MEQ TABLET.ER. PO SCH (08:36)
[2021-03-30] MEDS: predniSONE 20 MG TABLET PO SCH (08:37)
[2021-03-30] MEDS: ASPIRIN ENTERIC COATED 81 MG TABLET.DR. PO SCH (08:37)
[2021-03-30] MEDS: FINASTERIDE 5 MG TABLET. PO SCH (08:37)
[2021-03-30] MEDS: FUROSEMIDE 40 MG/4 ML VIAL. IVP SCH (08:37)
[2021-03-30] MEDS: AMIODARONE HCL 200 MG TABLET. PO SCH (08:37)
[2021-03-30] MEDS: CETIRIZINE HCL 10 MG TABLET. PO SCH (08:37)
[2021-03-30] MEDS: CITALOPRAM 10 MG TABLET. PO SCH (08:37)
[2021-03-30] MEDS: METOPROLOL TART IMMED RELEASE 25 MG TABLET. PO SCH (08:38)
[2021-03-30] MEDS: DOXYCYCLINE HYCLATE 100 MG TABLET PO SCH (08:38)
[2021-03-30] MEDS: APIXABAN 5 MG TABLET. PO SCH (09:00)
[2021-03-30] MEDS: ACETAMINOPHEN 325 MG TABLET. PO PRN (09:37)
[2021-03-30 10:46] VITALS: BP 161/84
[2021-03-30] MEDS ORDERED: FURO-68 PO (10:49)
[2021-03-30] MEDS ORDERED: ASPI-886 PO (10:49)
[2021-03-30] MEDS ORDERED: METO25TA4 PO (10:49)
[2021-03-30] MEDS ORDERED: DOXY100T PO (10:49)
--- NOTE | 2021-03-30 10:50 | SNU/HH DC ---
DISCHARGE ORDERS DISCHARGE INFORMATION: DISCHARGE DATE: Mar 30, 2021 FINAL DIAGNOSIS Problems Medical Problems: (1) Wide-complex tachycardia Status: Acute CONDITION ON DISCHARGE: Stable CODE STATUS: Code Status: Full JAIL: SNF STAY <30 DAYS: No POST DISCHARGE ORDERS: ACTIVITY ORDERS: Activity as tolerated WEIGHT BEARING STATUS: As tolerated BATHING ORDERS: Shower-keep dressing dry, No Tub Bath until see DIET AFTER DISCHARGE: SCOUT WOUND/INCISION CARE: No wound care needed CHECKS AFTER DISCHARGE: CHECKS AFTER DISCHARGE: Check blood press - daily, Check blood sugar, ac/hs, Check your Temp as needed TREATMENT/EQUIPMENT ORDERS: ADAPTIVE EQUIPMENT NEEDED: Walker Physical Therapy For: Evalulation/Treatment Occupational Therapy For: Evaluation/Treatment DISCHARGE MEDICATIONS: Home Meds Active Scripts Insulin Lispro (HUMALOG) 100 Unit/1 Ml Insuln.pen, 0 UNITS SQ TIDWMEALS for dm2 for 30 Days, #1 EACH Prov:GERMAN HE MD 11/16/18 Metformin Hcl (GLUCOPHAGE XR) 500 Mg Tab.er.24h, 500 MG PO DAILYWBKFT for dm for 30 Days, #30 TAB.SR Prov:GERMAN HE MD 11/16/18 Cefdinir (CEFDINIR) 300 Mg Capsule, 300 MG PO BID for uti for 7 Days, #14 CAP Prov:GERMAN HE MD 11/16/18 Reported Medications Apixaban (ELIQUIS) 2.5 Mg Tablet, 2.5 MG PO BID for anticoag, TAB 03/21/21 Amiodarone Hcl (AMIODARONE HCL) 200 Mg Tablet, 1 TAB PO DAILY for cardiac, #90 TAB 1 Refill 03/21/21 Insulin Lispro (HUMALOG) 100 Unit/1 Ml Vial, 4 UNIT SQ TIDAC for DM, EACH 03/21/21 Insulin Glargine,Hum.rec.anlog (LANTUS SOLOSTAR) 100 Unit/1 Ml Insuln.pen, 35 UNIT SQ QHS for DM, #15 ML 3 Refills 03/21/21 Acetaminophen (TYLENOL) 325 Mg Tablet, 325 MG PO PRN Q4HRS PRN for MILD PAIN / TEMP, TAB 11/10/18 Levetiracetam (LEVETIRACETAM) 500 Mg Tablet, 1000 MG PO BID for Seizures, TAB 5/17/19 Polyethylene Glycol 3350 (MIRALAX) 17 Gm Powd.pack, 1 PACKET PO DAILY for Constipation, PACKET 11/10/18 Tamsulosin Hcl (FLOMAX) 0.4 Mg Cap.er.24h, 1 CAP PO DAILY for Urinary , CAP 11/10/18 Multivitamin (MULTIVITAMINS) 1 Each Tablet, 1 TAB PO DAILY for Supplement, TAB 11/10/18 Amlodipine Besylate (NORVASC) 5 Mg Tablet, 1 TAB PO DAILY for HTN, TAB 11/10/18 Atorvastatin Calcium (ATORVASTATIN CALCIUM) 20 Mg Tablet, 1 TAB PO DAILY for Cholesterol, TAB 11/10/18 Gabapentin (GABAPENTIN) 300 Mg Capsule, 300 MG PO PRN QHS PRN for PAIN, CAP 11/10/18 Finasteride (PROSCAR) 5 Mg Tablet, 1 TAB PO DAILY for BPH, TAB 11/10/18 Diclofenac Sodium (VOLTAREN) 100 Gm Gel..gram., 2 GM TP QID for Shoulder pain, GM 11/10/18 Loratadine (CLARITIN) 10 Mg Tablet, 1 TAB PO DAILY for Allergies, TAB 11/10/18 Citalopram Hydrobromide (CITALOPRAM HBR) 10 Mg Tablet, 1 TAB PO DAILY for Depression, TAB 11/10/18 Guaifenesin/Dextromethorphan (Robitussin Cough-Chest Dm Liq) 237 Ml Liquid, 10 ML PO PRN Q4HRS PRN for COUGH, LIQUID 11/10/18 Nystatin (NYSTATIN) 15 Gm Cream..g., 1 ADAMARIS TP PRN BID PRN for REDNESS, GM 11/10/18 LENNOX OLIVER MD Mar 30, 2021 10:50
--- NOTE | 2021-03-30 10:52 | PDOC3 ---
[facility]-Discharge Summary Date of Admission: Date of Admission: Mar 21, 2021 Date of Discharge: Date of Discharge: Mar 30, 2021 Admission Diagnosis: Problems: (1) Wide-complex tachycardia Discharge Diagnosis: Discharge Diagnosis: Same Consults: Consults: Cardiology Hospital Course: Hospital Course: Chief Complaint A/P: Acute respiratory failure with hypoxia - acute exacerbation of COPD and acute congestive heart failure. Continue pulmonary medications. BIPAP prn as well as diuresis Acute on chronic diastolic CHF - on 03/26 RHC revealed severe BiV overload Paroxysmal AFIB - pacer with 100% afib paced S/p Permanent pacemaker ([employer]) Hyperlipidemia. Will check lab. 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 Hyponatremia - likely hypervolemic, improving Elevated bilirubin - due to constipation Severe aortic stenosis - will need outpatient evaluation Mild mitral stenosis Echo 03/23/2021: The left ventricle is normal size. The left ventricular systolic function is normal. LV ejection fraction is 55 to 60%. There is mild concentric left ventricular hypertrophy. The aortic valve is moderately to severely calcified. There is moderate to severe valvular aortic stenosis. Calculated aortic valve area is 0.8 cm2 with maximum pressure gradient of 39 mmHg and mean pressure gradient of 22 mmHg. Doppler and Color Flow revealed no significant aortic regurgitation. There is mild mitral valve stenosis. Calculated mitral valve area is 1.3 cm2 with maximum pressure gradient of 19 mmHg and mean pressure gradient of 8 mmHg. Doppler and Color-flow revealed mild mitral regurgitation. Doppler and Color Flow revealed mild tricuspid regurgitation. The PA pressure was estimated at 46 mmHg. FEN - Cardiac diet PPX - heparin FULL CODE Dispo - inpatient History of Present Illness History of Present Illness Mr Griffith is a 80-year-old male who has COPD and congestive heart failure and a previous stroke who presented with shortness of breath, was noted to have an O2 sat around 70% at his SNF. He was also placed on CPAP when he got to the ER. His EKG showed some sinus tachycardia. The patient has now been admitted to the medical floor, where we are treating him for his COPD and CHF. 03/23: O2 saturations improved on BIPAP, now on NCO2 6 l/min. Hollins placed for urinary retention. He is still confused. 03/24: Echo with severe aortic stenosis and mild mitral stenosis. Less confused. Tolerated BiPAP well. Still on O2. Requiring 4 L nasal cannula to maintain O2 saturations 91%. 03/25: Wore BiPAP overnight well still required 4 L nasal cannula O2. Pacer interrogated this morning 100% A. fib. 03/26: Afebrile overnight. Still required BiPAP overnight and 4 L nasal cannula oxygen at rest. To the left and right heart cath today with cardiology findings of triple-vessel disease with left main disease as well as biventricular overloa d plan for aggressive diuresis. Discussed with patient and significant other bedside given his functional status he is still like a formal outpatient CT surgery consultation at some point in the future after returning to SNF. Still require approximately 3 additional days of diuresis likely. 03/27: Afebrile. Still requiring O2 support with BiPAP overnight. Needing further aggressive diuresis. Still short of breath and swollen. 3.8L UOP today 03/28: Afebrile, still requiring O2 and BIPAP support. 2.1 L uop today. Glucose in 200s requiring correction. Afebrile. On 3 L nasal cannula O2 and overnight BiPAP support. 3.125 L urine output past 24 hours. Glucose improving. Symptomatically he feels little less short of breath. Discussed with cardiology to continue diuresis likely discharge in the next 24 to 48-hour 03/30 Afebrile, no major events or changes. Shortness of breath improving. Accepted at [facility] is long-term resident. Discharge today. Disposition: Disposition/Orders: D/C to Another Facility Activity: Activity: Resume previous activity Diet: Diet: Cardiac Medications: Home Meds Active Scripts Furosemide (LASIX) 40 Mg Tablet, 1 TAB PO DAILY for edema for 30 Days, #30 TAB 0 Refills Prov:LENNOX OLIVER MD 03/30/21 Aspirin (ASPIRIN EC) 81 Mg Tablet.dr, 81 MG PO DAILYWBKFT for cad for 30 Days, #30 TAB.SR Prov:LENNOX OLIVER MD 03/30/21 Metoprolol Tartrate (METOPROLOL TARTRATE) 25 Mg Tablet, 25 MG PO BID for cad for 30 Days, #60 TAB Prov:LENNOX OLIVER MD 03/30/21 Doxycycline Hyclate (DOXYCYCLINE HYCLATE) 100 Mg Tablet, 100 MG PO BID for pneumopnia for 7 Days, #14 TAB Prov:LENNOX OLIVER MD 03/30/21 Insulin Lispro (HUMALOG) 100 Unit/1 Ml Insuln.pen, 0 UNITS SQ TIDWMEALS for dm2 for 30 Days, #1 EACH Prov:GERMAN HE MD 11/16/18 Metformin Hcl (GLUCOPHAGE XR) 500 Mg Tab.er.24h, 500 MG PO DAILYWBKFT for dm for 30 Days, #30 TAB.SR Prov:GERMAN HE MD 11/16/18 Reported Medications Apixaban (ELIQUIS) 2.5 Mg Tablet, 2.5 MG PO BID for anticoag, TAB 03/21/21 Amiodarone Hcl (AMIODARONE HCL) 200 Mg Tablet, 1 TAB PO DAILY for cardiac, #90 TAB 1 Refill 03/21/21 Insulin Lispro (HUMALOG) 100 Unit/1 Ml Vial, 4 UNIT SQ TIDAC for DM, EACH 03/21/21 Insulin Glargine,Hum.rec.anlog (LANTUS SOLOSTAR) 100 Unit/1 Ml Insuln.pen, 35 UNIT SQ QHS for DM, #15 ML 3 Refills 03/21/21 Acetaminophen (TYLENOL) 325 Mg Tablet, 325 MG PO PRN Q4HRS PRN for MILD PAIN / TEMP, TAB 11/10/18 Levetiracetam (LEVETIRACETAM) 500 Mg Tablet, 1000 MG PO BID for Seizures, TAB 11/10/18 Polyethylene Glycol 3350 (MIRALAX) 17 Gm Powd.pack, 1 PACKET PO DAILY for Constipation, PACKET 11/10/18 Tamsulosin Hcl (FLOMAX) 0.4 Mg Cap.er.24h, 1 CAP PO DAILY for Urinary , CAP 11/10/18 Multivitamin (MULTIVITAMINS) 1 Each Tablet, 1 TAB PO DAILY for Supplement, TAB 11/10/18 Amlodipine Besylate (NORVASC) 5 Mg Tablet, 1 TAB PO DAILY for HTN, TAB 11/10/18 Atorvastatin Calcium (ATORVASTATIN CALCIUM) 20 Mg Tablet, 1 TAB PO DAILY for Cholesterol, TAB 11/10/18 Gabapentin (GABAPENTIN) 300 Mg Capsule, 300 MG PO PRN QHS PRN for PAIN, CAP 11/10/18 Finasteride (PROSCAR) 5 Mg Tablet, 1 TAB PO DAILY for BPH, TAB 11/10/18 Diclofenac Sodium (VOLTAREN) 100 Gm Gel..gram., 2 GM TP QID for Shoulder pain, GM 11/10/18 Loratadine (CLARITIN) 10 Mg Tablet, 1 TAB PO DAILY for Allergies, TAB 11/10/18 Citalopram Hydrobromide (CITALOPRAM HBR) 10 Mg Tablet, 1 TAB PO DAILY for Depression, TAB 11/10/18 Guaifenesin/Dextromethorphan (Robitussin Cough-Chest Dm Liq) 237 Ml Liquid, 10 ML PO PRN Q4HRS PRN for COUGH, LIQUID 11/10/18 Nystatin (NYSTATIN) 15 Gm Cream..g., 1 ADAMARIS TP PRN BID PRN for REDNESS, GM 11/10/18 Discontinued Scripts Cefdinir (CEFDINIR) 300 Mg Capsule, 300 MG PO BID for uti for 7 Days, #14 CAP Prov:GERMAN HE MD 11/16/18 Scheduled Amiodarone Hcl (Amiodarone Hcl), 1 TAB PO DAILY, (Reported) Amlodipine Besylate (Norvasc), 1 TAB PO DAILY, (Reported) Apixaban (Eliquis), 2.5 MG PO BID, (Reported) Aspirin (Aspirin Ec), 81 MG PO DAILYWBKFT Atorvastatin Calcium (Atorvastatin Calcium), 1 TAB PO DAILY, (Reported) Citalopram Hydrobromide (Citalopram Hbr), 1 TAB PO DAILY, (Reported) Diclofenac Sodium (Voltaren), 2 GM TP QID, (Reported) Doxycycline Hyclate (Doxycycline Hyclate), 100 MG PO BID Finasteride (Proscar), 1 TAB PO DAILY, (Reported) Furosemide (Lasix), 1 TAB PO DAILY Insulin Glargine,Hum.rec.anlog (Lantus Solostar), 35 UNIT SQ QHS, (Reported) Insulin Lispro (Humalog), 0 UNITS SQ TIDWMEALS Insulin Lispro (Humalog), 4 UNIT SQ TIDAC, (Reported) Levetiracetam (Levetiracetam), 1,000 MG PO BID, (Reported) Loratadine (Claritin), 1 TAB PO DAILY, (Reported) Metformin Hcl (Glucophage Xr), 500 MG PO DAILYWBKFT Metoprolol Tartrate (Metoprolol Tartrate), 25 MG PO BID Multivitamin (Multivitamins), 1 TAB PO DAILY, (Reported) Polyethylene Glycol 3350 (Miralax), 1 PACKET PO DAILY, (Reported) Tamsulosin Hcl (Flomax), 1 CAP PO DAILY, (Reported) Scheduled PRN Acetaminophen (Tylenol), 325 MG PO PRN Q4HRS PRN for MILD PAIN / TEMP, (Reported) Gabapentin (Gabapentin), 300 MG PO PRN QHS PRN for PAIN, (Reported) Guaifenesin/Dextromethorphan (Robitussin Cough-Chest Dm Liq), 10 ML PO PRN Q4HRS PRN for COUGH, (Reported) Nystatin (Nystatin), 1 ADAMARIS TP PRN BID PRN for REDNESS, (Reported) Discontinued Medications Cefdinir (Cefdinir), 300 MG PO BID Justicifation of Admission Dx: Justifications for Admission: Justification of Admission Dx: Yes LENNOX OLIVER MD Mar 30, 2021 10:52
--- NOTE | 2021-03-30 11:25 | NUR ---
SS following up with discharge planning. SS reviewed pt chart and discussed with pt RN. Pt is currently requiring oxygen at two liters nasal canula. COVID19 negative. PT/OT ordered. Pt is LTC resident from [facility], ; fax [phone]. Discharge orders received and sent to [facility]. Pt will discharge today and return to [facility] at 1230 via [facility] stretcher. Pt, pt's family, and pt's RN notified. Packet placed on chart.
[2021-03-30 11:53] VITALS: BP 161/84
--- NOTE | 2021-03-30 12:14 | NUR ---
Gave report to Stephanie RN at [facility] [place]. IV and telemonitor discontinued by this RN. Patient on 1.5LNC. Awaiting EMS for transportation, belongings packed. at bedside.
--- NOTE | 2021-03-30 12:25 | PDOC ---
JACKELIN SALAS PUBLIC HEALTH DIRECTOR 03/30/21 1225: CARDIO Progress Notes Date and Time Date of Service 03/30/21 Time of Evaluation 1200 Subjective Subjective: No Chest Pain, No shortness of breath, No Palpitations Vitals Vitals Vital Signs Date Time Temp Pulse Resp B/P (MAP) Pulse Ox O2 Delivery O2 Flow Rate FiO2 03/30/21 11:53 97 161/84 03/30/21 11:31 High Flow Nasal Cannula 3.0 03/30/21 10:46 97.3 20 96 97.3 Weight Weight [ ] Input and Output Intake and Output Intake and Output 03/30/21 07:00 Intake Total 657 ml Output Total 1250 ml Balance -593 ml Intake Oral 657 ml Output Urine Total 1250 ml # Bowel Movements 2 Laboratory Labs Laboratory Tests Test 03/29/21 17:19 03/29/21 21:01 03/30/21 03:45 03/30/21 08:00 Glucose (Fingerstick) 220 mg/dL (70-99) 279 mg/dL (70-99) 100 mg/dL (70-99) Sodium Level 136 mmol/L (136-145) Potassium Level 4.2 mmol/L (3.5-5.1) Chloride Level 97 mmol/L (98-107) Carbon Dioxide Level 32 mmol/L (21-32) Anion Gap 7 (6-14) Blood Urea Nitrogen 20 mg/dL (8-26) Creatinine 0.7 mg/dL (0.7-1.3) Estimated GFR (Cockcroft-Gault) 108.8 Glucose Level 138 mg/dL (70-99) Calcium Level 8.5 mg/dL (8.5-10.1) Test 03/30/21 11:23 Glucose (Fingerstick) 191 mg/dL (70-99) Physical Exam HEENT: Neck Supple W Full Motion Chest: Symmetric LUNGS: Other (diminished bases) Heart: RRR (SR) Abdomen: Soft N/T, Other (obese) Extremities: Other (1+ bilateral LE edema ) Neurology: alert, oriented, follow commands Assessment Assessment 1. Acute respiratory failure secondary to combination of acute on chronic diastolic heart failure and AE COPD 2. PAFIB/flutter with RVR; Maintaining SR. Continue amiodarone for rhythm maintenance and Eliquis for stroke prophylaxis 3. Acute on chronic diastolic CHF: RHC revealed severe BiV overload: Improved with diuresis 4. SSS s/p PPM ([facility]): Clinically stable 5. Hypertension; controlled 6. Hyperlipidemia; statin 7. Diabetes, II 8. H/o CVA 9. H/o Seizures 10. Moderate 11. Secondary pulmonary HTN 12. CAD: LHC revealed severe 3V CAD with LM involvement. Presently chest pain-free. Possible high risk PCI referral Recommendations Lasix therapy Continue Amiodarone therapy Metoprolol for rate control Secondary prevention Eliquis for stroke prophylaxis Outpatient referral for possible high risk PCI, valvular disease Justicifation of Admission Dx: Justifications for Admission: Justification of Admission Dx: Yes ELA BUENROSTRO MD 03/30/21 1821: CARDIO Progress Notes Plan Plan Patient seen and examined. Agree with above nurse practitioner note. We will plan for outpatient follow-up. I discussed with the patient's family. JACKELIN SALAS APRN Mar 30, 2021 12:25 ELA BUENROSTRO MD Mar 30, 2021 18:21
--- NOTE | 2021-03-30 13:46 | SNU/HH DC ---
DISCHARGE ORDERS DISCHARGE INFORMATION: DISCHARGE DATE: Mar 30, 2021 FINAL DIAGNOSIS Problems Medical Problems: (1) Wide-complex tachycardia Status: Acute CONDITION ON DISCHARGE: Stable CODE STATUS: Code Status: Full PENITENTIARY: SNF STAY <30 DAYS: No ([facility] POST DISCHARGE ORDERS: ACTIVITY ORDERS: Activity as tolerated WEIGHT BEARING STATUS: As tolerated BATHING ORDERS: Shower-keep dressing dry, No Tub Bath until see DIET AFTER DISCHARGE: ADA WOUND/INCISION CARE: No wound care needed CHECKS AFTER DISCHARGE: CHECKS AFTER DISCHARGE: Check blood press - daily, Check blood sugar, ac/hs, Check your Temp as needed FOLLOW-UP: ADDITIONAL FOLLOW-UP: [facility] outpatient TREATMENT/EQUIPMENT ORDERS: ADAPTIVE EQUIPMENT NEEDED: None RESPIRATORY EQUIPMENT NEEDED: CPAP Physical Therapy For: Evalulation/Treatment Occupational Therapy For: Evaluation/Treatment DISCHARGE MEDICATIONS: Home Meds Active Scripts Furosemide (LASIX) 40 Mg Tablet, 1 TAB PO DAILY for edema for 30 Days, #30 TAB 0 Refills Prov:LENNOX OLIVER MD 03/30/21 Aspirin (ASPIRIN EC) 81 Mg Tablet.dr, 81 MG PO DAILYWBKFT for cad for 30 Days, #30 TAB.SR Prov:LENNOX OLIVER MD 03/30/21 Metoprolol Tartrate (METOPROLOL TARTRATE) 25 Mg Tablet, 25 MG PO BID for cad for 30 Days, #60 TAB Prov:LENNOX OLIVER MD 03/30/21 Doxycycline Hyclate (DOXYCYCLINE HYCLATE) 100 Mg Tablet, 100 MG PO BID for pneumopnia for 7 Days, #14 TAB Prov:LENNOX OLIVER MD 03/30/21 Insulin Lispro (HUMALOG) 100 Unit/1 Ml Insuln.pen, 0 UNITS SQ TIDWMEALS for dm2 for 30 Days, #1 EACH Prov:GERMAN HE MD 11/16/18 Metformin Hcl (GLUCOPHAGE XR) 500 Mg Tab.er.24h, 500 MG PO DAILYWBKFT for dm for 30 Days, #30 TAB.SR Prov:GERMAN HE MD 11/16/18 Reported Medications Apixaban (ELIQUIS) 2.5 Mg Tablet, 2.5 MG PO BID for anticoag, TAB 03/21/21 Amiodarone Hcl (AMIODARONE HCL) 200 Mg Tablet, 1 TAB PO DAILY for cardiac, #90 TAB 1 Refill 03/21/21 Insulin Lispro (HUMALOG) 100 Unit/1 Ml Vial, 4 UNIT SQ TIDAC for DM, EACH 03/21/21 Insulin Glargine,Hum.rec.anlog (LANTUS SOLOSTAR) 100 Unit/1 Ml Insuln.pen, 35 UNIT SQ QHS for DM, #15 ML 3 Refills 03/21/21 Acetaminophen (TYLENOL) 325 Mg Tablet, 325 MG PO PRN Q4HRS PRN for MILD PAIN / TEMP, TAB 11/10/18 Levetiracetam (LEVETIRACETAM) 500 Mg Tablet, 1000 MG PO BID for Seizures, TAB 11/10/18 Polyethylene Glycol 3350 (MIRALAX) 17 Gm Powd.pack, 1 PACKET PO DAILY for Constipation, PACKET 11/10/18 Tamsulosin Hcl (FLOMAX) 0.4 Mg Cap.er.24h, 1 CAP PO DAILY for Urinary , CAP 11/10/18 Multivitamin (MULTIVITAMINS) 1 Each Tablet, 1 TAB PO DAILY for Supplement, TAB 11/10/18 Amlodipine Besylate (NORVASC) 5 Mg Tablet, 1 TAB PO DAILY for HTN, TAB 11/10/18 Atorvastatin Calcium (ATORVASTATIN CALCIUM) 20 Mg Tablet, 1 TAB PO DAILY for Cholesterol, TAB 11/10/18 Gabapentin (GABAPENTIN) 300 Mg Capsule, 300 MG PO PRN QHS PRN for PAIN, CAP 11/10/18 Finasteride (PROSCAR) 5 Mg Tablet, 1 TAB PO DAILY for BPH, TAB 11/10/18 Diclofenac Sodium (VOLTAREN) 100 Gm Gel..gram., 2 GM TP QID for Shoulder pain, GM 11/10/18 Loratadine (CLARITIN) 10 Mg Tablet, 1 TAB PO DAILY for Allergies, TAB 11/10/18 Citalopram Hydrobromide (CITALOPRAM HBR) 10 Mg Tablet, 1 TAB PO DAILY for Depression, TAB 11/10/18 Guaifenesin/Dextromethorphan (Robitussin Cough-Chest Dm Liq) 237 Ml Liquid, 10 ML PO PRN Q4HRS PRN for COUGH, LIQUID 11/10/18 Nystatin (NYSTATIN) 15 Gm Cream..g., 1 ADAMARIS TP PRN BID PRN for REDNESS, GM 5/17/19 Discontinued Scripts Cefdinir (CEFDINIR) 300 Mg Capsule, 300 MG PO BID for uti for 7 Days, #14 CAP Prov:GERMAN HE MD 11/16/18 LENNOX OLIVER MD Mar 30, 2021 13:46
== END 2021-03-30 13:00 | DRG 286 ==
LOC: ER 05:20 → ED HOLD 06:31 → 6 SOUTH 07:07
PROVIDERS: ADMIT Student in an Organized Health Care Education/Training Program; ATTEND Student in an Organized Health Care Education/Training Program
PROC: 4B02XSZ Measurement of Cardiac Pacemaker, External Approach (ICD-10-PCS; 2021-03-21)
PROC: 5A09357 Assistance with Respiratory Ventilation, Less than 24 Consecutive Hours, Continuous Positive Airway Pressure (ICD-10-PCS; 2021-03-22)
PROC: 5A09357 Assistance with Respiratory Ventilation, Less than 24 Consecutive Hours, Continuous Positive Airway Pressure (ICD-10-PCS; 2021-03-23)
PROC: 5A09357 Assistance with Respiratory Ventilation, Less than 24 Consecutive Hours, Continuous Positive Airway Pressure (ICD-10-PCS; 2021-03-23)
PROC: 5A09357 Assistance with Respiratory Ventilation, Less than 24 Consecutive Hours, Continuous Positive Airway Pressure (ICD-10-PCS; 2021-03-24)
PROC: 5A09357 Assistance with Respiratory Ventilation, Less than 24 Consecutive Hours, Continuous Positive Airway Pressure (ICD-10-PCS; 2021-03-24)
PROC: 5A09357 Assistance with Respiratory Ventilation, Less than 24 Consecutive Hours, Continuous Positive Airway Pressure (ICD-10-PCS; 2021-03-25)
PROC: 4A023N8 Measurement of Cardiac Sampling and Pressure, Bilateral, Percutaneous Approach (ICD-10-PCS; principal; 2021-03-26)
PROC: B2111ZZ Fluoroscopy of Multiple Coronary Arteries using Low Osmolar Contrast (ICD-10-PCS; 2021-03-26)
PROC: 5A09357 Assistance with Respiratory Ventilation, Less than 24 Consecutive Hours, Continuous Positive Airway Pressure (ICD-10-PCS; 2021-03-26)
PROC: 5A09357 Assistance with Respiratory Ventilation, Less than 24 Consecutive Hours, Continuous Positive Airway Pressure (ICD-10-PCS; 2021-03-27)
PROC: 5A09357 Assistance with Respiratory Ventilation, Less than 24 Consecutive Hours, Continuous Positive Airway Pressure (ICD-10-PCS; 2021-03-28)
PROC: 5A0935A Assistance with Respiratory Ventilation, Less than 24 Consecutive Hours, High Flow/Velocity Cannula (ICD-10-PCS; 2021-03-28)
PROC: 5A0935A Assistance with Respiratory Ventilation, Less than 24 Consecutive Hours, High Flow/Velocity Cannula (ICD-10-PCS; 2021-03-29)
PROC: 5A09357 Assistance with Respiratory Ventilation, Less than 24 Consecutive Hours, Continuous Positive Airway Pressure (ICD-10-PCS; 2021-03-29)
PROC: 5A0935A Assistance with Respiratory Ventilation, Less than 24 Consecutive Hours, High Flow/Velocity Cannula (ICD-10-PCS; 2021-03-30)
DX: I11.0 Hypertensive heart disease with heart failure (principal); I50.33 Acute on chronic diastolic (congestive) heart failure; J96.01 Acute respiratory failure with hypoxia; E87.1 Hypo-osmolality and hyponatremia; G81.94 Hemiplegia, unspecified affecting left nondominant side; I47.2 Ventricular tachycardia; J44.1 Chronic obstructive pulmonary disease with (acute) exacerbation; E11.65 Type 2 diabetes mellitus with hyperglycemia; E78.5 Hyperlipidemia, unspecified; G40.909 Epilepsy, unspecified, not intractable, without status epilepticus; I25.10 Atherosclerotic heart disease of native coronary artery without angina pectoris; I27.29 Other secondary pulmonary hypertension; I27.81 Cor pulmonale (chronic); I35.0 Nonrheumatic aortic (valve) stenosis; I48.0 Paroxysmal atrial fibrillation; K59.00 Constipation, unspecified; N40.1 Benign prostatic hyperplasia with lower urinary tract symptoms; R33.8 Other retention of urine; Z82.49 Family history of ischemic heart disease and other diseases of the circulatory system; Z83.3 Family history of diabetes mellitus; Z85.51 Personal history of malignant neoplasm of bladder; Z86.73 Personal history of transient ischemic attack (TIA), and cerebral infarction without residual deficits; Z95.0 Presence of cardiac pacemaker; Z99.3 Dependence on wheelchair; F32.9 Major depressive disorder, single episode, unspecified; M19.90 Unspecified osteoarthritis, unspecified site; Z20.822 Contact with and (suspected) exposure to COVID-19; I05.0 Rheumatic mitral stenosis
CPT/HCPCS: 36415; 36600; 71045; 76937; 80048; 80053; 80061; 82805; 82962; 83735; 83880; 84484; 85007; 85025; 87426; 90471; 90686; 93005; 93306; 93460; 94640; 94660; 94760; 96365; 96366; 96368; 99152; 99153; C1773; C1894; J0282; J1644; J1815; J1940; J2250; J2543; J2920; J3010; J3475; J3490; J7060; J7512; Q9967; U0003; U0005; 99285-25; G0378

== ENCOUNTER → 2021-08-04 | Outpatient (CLI) | payer MEDICARE, OTHER ==
[~2021-08-04] MED LIST changes: +AMIO200T53 PO; +APIX2.5T PO; +ASPI-886 PO; -CITA10TA4 PO; +CITA10TA5 PO; +DOXY100T PO; +FURO-68 PO; +INSU100V6 SQ; +METO25TA4 PO
[2021-08-04 21:21] LABS: BILIRUBIN,URINE NEGATIVE (NEG); CLARITY,URINE CLEAR; COLOR,URINE YELLOW; NITRITE,URINE NEGATIVE (NEG); PROTEIN,URINE NEGATIVE (NEG-TRACE)
[2021-08-04 21:25] LABS: RBC,URINE 20-40 /HPF (0-2)
[2021-08-04 21:26] LABS: BACTERIA,URINE 0 /HPF (0-FEW)
== END ==
LOC: LAB 20:00 → SPEC 21:13 → EDSTATUS 08-07 11:24
PROVIDERS: ATTEND Family Medicine
DX: N39.0 Urinary tract infection, site not specified (principal)
CPT/HCPCS: 81001; 87086

== ENCOUNTER → 2021-09-23 | Outpatient (CLI) | payer MEDICARE, OTHER | LOC: SPEC 14:47 | PROVIDERS: ATTEND Family Medicine | DX: R19.7 Diarrhea, unspecified (principal) | CPT/HCPCS: 36415; 87505 ==